=== PATIENT | female | born 1945 | race Caucasian/White ===

== ENCOUNTER 2020-09-05 09:18 | Outpatient (REF) | payer MEDICARE, SELFPAY ==
[2020-09-05 10:16] LABS: MANUAL DIFF FLAG NO
[2020-09-05 10:38] LABS: Basophils Absolute Auto 0.1 X10*3/uL (0.0-0.2); Basophils Percent Auto 0.7 % (0-2); Eosinophils Absolute Auto 0.2 X10*3/uL (0.0-0.4); Eosinophils Percent Auto 2.1 % (0-4); Hematocrit 35.9 % (37-47); Hemoglobin 11.8 g/dl (12.0-16.0); Imm Gran Abs Auto 0.01 X10*3/uL (0.00-0.03); Imm Gran Pct Auto 0.1 % (0.0-0.4); Lymphocytes Absolute Auto 2.2 X10*3/uL (1.2-4.9); Lymphocytes Percent Auto 29.7 % (20-40); Mean Corpuscular HGB Conc 32.9 g/dl (31.0-35.0); Mean Corpuscular Volume 91.3 fL (80-98); Mean Platelet Volume 10.5 fL (9.4-12.3); Monocytes Absolute Auto 0.6 X10*3/uL (0.1-1.2); Monocytes Percent Auto 7.7 % (2-11); Neutrophils Absolute Auto 4.5 X10*3/uL (2.0-8.3); Neutrophils Percent Auto 59.7 % (45-73); Platelet Count 305 X10*3/uL (160-400); Red Blood Count 3.93 X10*6/uL (4.20-5.50); Red Cell Distribution Width 14.4 % (11.0-16.0); White Blood Count 7.5 X10*3/uL (4.8-10.8)
[2020-09-05 10:55] LABS: Alanine Aminotransferase 18 U/L (0-31); Albumin Level 4.1 g/dL (3.5-5.0); Alkaline Phosphatase 106 U/L (39-117); Anion Gap 11 (12-20); Aspartate Amino Transferase 26 U/L (5-31); Bilirubin Total 0.3 mg/dL (0.0-1.0); Blood Urea Nitrogen 17 mg/dL (9-16); Carbon Dioxide 29 mmol/L (22-29); Chloride 105 mmol/L (96-108); Cholesterol 198 mg/dL; Estimated Glomerular Filt Rate > 60; Glucose Fasting 101 mg/dL (60-99); HDL Cholesterol 77 mg/dL; LDL Cholesterol Calculated 103 mg/dl; Sodium 141 mmol/L (135-145); Triglycerides 90 mg/dL
[2020-09-05 11:20] LABS: Ferritin 12 ng/mL (10-250)
[2020-09-05 11:23] LABS: Vitamin B12 1009 pg/mL (200-900)
== END 2020-09-05 09:19 | disposition home or self-care (01) ==
LOC: HO.LAB 09:18
PROVIDERS: PCP Internal Medicine; Visit Provider Internal Medicine
DX: Z00.00 Encounter for general adult medical examination without abnormal findings (principal); D50.8 Other iron deficiency anemias; I10 Essential (primary) hypertension; Z80.0 Family history of malignant neoplasm of digestive organs
CPT/HCPCS: 36415; 80053; 80061; 82607; 82728; 84443; 85025

== ENCOUNTER 2021-02-23 10:33 | Outpatient (REF) | payer MEDICARE, SELFPAY ==
[2021-02-23 11:25] LABS: MANUAL DIFF FLAG NO
[2021-02-23 11:37] LABS: Basophils Percent Auto 0.5 % (0-2); Eosinophils Absolute Auto 0.2 X10*3/uL (0.0-0.4); Eosinophils Percent Auto 1.8 % (0-4); Hematocrit 32.5 % (37-47); Hemoglobin 10.5 g/dl (12.0-16.0); Imm Gran Abs Auto 0.02 X10*3/uL (0.00-0.03); Imm Gran Pct Auto 0.2 % (0.0-0.4); Lymphocytes Absolute Auto 1.9 X10*3/uL (1.2-4.9); Lymphocytes Percent Auto 23.1 % (20-40); Mean Corpuscular HGB Conc 32.3 g/dl (31.0-35.0); Mean Corpuscular Hemoglobin 29.9 pg (27.0-33.0); Mean Corpuscular Volume 92.6 fL (80-98); Mean Platelet Volume 10.2 fL (9.4-12.3); Monocytes Absolute Auto 0.6 X10*3/uL (0.1-1.2); Monocytes Percent Auto 7.9 % (2-11); Neutrophils Absolute Auto 5.4 X10*3/uL (2.0-8.3); Neutrophils Percent Auto 66.5 % (45-73); Platelet Count 252 X10*3/uL (160-400); Red Blood Count 3.51 X10*6/uL (4.20-5.50); Red Cell Distribution Width 14.9 % (11.0-16.0); White Blood Count 8.1 X10*3/uL (4.8-10.8)
[2021-02-23 11:47] LABS: Alanine Aminotransferase 19 U/L (0-31); Albumin Level 3.7 g/dL (3.5-5.0); Alkaline Phosphatase 107 U/L (39-117); Anion Gap 11 (12-20); Aspartate Amino Transferase 25 U/L (5-31); Bilirubin Total 0.3 mg/dL (0.0-1.0); Blood Urea Nitrogen 22 mg/dL (9-16); Calcium 8.9 mg/dL (8.4-10.2); Carbon Dioxide 30 mmol/L (22-29); Chloride 107 mmol/L (96-108); Estimated Glomerular Filt Rate > 60; Glucose Fasting 111 mg/dL (60-99); Potassium 3.8 mmol/L (3.3-5.1); Sodium 144 mmol/L (135-145); Total Protein 6.2 g/dL (6.5-8.0)
[2021-02-23 12:09] LABS: Ferritin 30 ng/mL (10-250)
== END 2021-02-23 10:34 | disposition home or self-care (01) ==
LOC: HO.LAB 10:33
PROVIDERS: PCP Internal Medicine; Visit Provider Internal Medicine
DX: D50.8 Other iron deficiency anemias (principal); I10 Essential (primary) hypertension; R60.0 Localized edema
CPT/HCPCS: 36415; 80053; 82728; 85025

== ENCOUNTER 2021-06-23 04:40 | Emergency (ER) | payer MEDICARE, SELFPAY ==
--- NOTE | ~2021-06-23 | CT_ITS ---
CT head/brain wo con CLINICAL INFORMATION: Reason for Exam Left facial numbness, rule out stroke COMPARISON: No prior CT scan available for comparison. TECHNIQUE: Department standard protocol. This CT examination was performed using dose optimization techniques as appropriate, variously including the following: *Automated exposure control *Adjustment of mA and/or kV according to patient size (this includes techniques or standardized protocols for targeted exams where dose is matched to indication/reason for exam; i.e. extremities or head) *Use of iterative reconstruction technique DLP: 622 mGy-cm FINDINGS: CEREBRAL HEMISPHERES: There is no evidence of intra-axial or extra-axial mass, hemorrhage or acute infarct. BRAIN PARENCHYMA: Normal lopez-white matter differentiation. SUBDURAL SPACE: No bleed. BASAL GANGLIA AND PINEAL GLAND: Unremarkable VENTRICLES: Symmetric and normal in size. CEREBELLUM AND BRAINSTEM: No space-occupying mass, hemorrhage or acute infarct. CEREBELLOPONTINE ANGLES: No lesion found. ORBITS: No intraorbital mass. VESSELS: Unremarkable SKULL BASE: Unremarkable INCLUDED SINUSES AT SKULL BASE: Clear SKULL AND SKIN: No fracture or bone lesion found. CT/CT head/brain wo con IMPRESSION: No CT evidence of intracranial space-occupying mass, bleed or infarct. Normal CT scan does not rule out the possibility of hyperacute infarct in the first 12 hours. If patient symptoms persist may consider correlation with MRI, which is more sensitive for early acute infarct.
--- NOTE | ~2021-06-23 | XR_ITS ---
EXAMINATION: XR chest 1V CLINICAL INFORMATION: Chest pain COMPARISON: None TECHNIQUE: XR chest 1V Tubes and lines: None Lungs and pleura: Hyperinflated lung flattening of the right hemidiaphragm suggests underlying air trapping. No radiographic evidence of acute infiltrates or failure. Heart and mediastinum: Heart borderline enlarged.. Bones/soft tissue: Skeletal structures included are normal for patient's age. XR/XR chest 1V IMPRESSION: Air trapping. Heart borderline enlarged. No radiographic evidence of acute infiltrates or failure.
[2021-06-23 04:42] VITALS: BP 148/55; BP 180/112; PULSE 63; PULSE 84; RESP 15; TEMP 37; O2SAT 97; BMI 33.0
--- NOTE | 2021-06-23 06:42 | ECG_ITS ---
Test Reason : NEURO Blood Pressure : / mmHG Vent. Rate : 062 BPM Atrial Rate : 062 BPM P-R Int : 164 ms QRS Dur : 094 ms QT Int : 434 ms P-R-T Axes : 037 029 024 degrees QTc Int : 440 ms Normal sinus rhythm Normal ECG No previous ECGs available Referred By: Randall Romero Electronically Signed By:Paresh Rainey
--- NOTE | 2021-06-23 06:43 | ED.NEUROSD ---
HPI - Neuro Symptoms/Deficit General Chief Complaint: Neuro Symptoms/Deficit Stated Complaint: numbness after eating salad Time Seen by Provider: 06/23/21 06:31 Source: patient Mode of arrival: EMS Limitations: no limitations History of Present Illness HPI Narrative: 26-year-old female who presents emergency department for evaluation of left facial numbness and left arm pain. The patient states that she was eating a salad around 6:00 p.m. when she developed numbness on the left side of her face. She also states she had a tingling sensation in her tongue. The numbness was located beneath her left eye on the area the cheek and extended to her lips. Initially, the numbness did not cross midline but then she states both her lips became numb. She states that yesterday she did have intermittent left arm pain which she describes as a tightness, this was not associated with exertion, she had no associated chest pain lightheadedness dizziness, nausea, diaphoresis or shortness of breath. The patient states that the numbness persisted therefore she came to the emergency department for evaluation. At the time of evaluation she states the numbness in her cheek area has improved but is still present, the numbness on both her upper and lower lips this persisted. Related Data Allergies Allergy/AdvReac Type Severity Reaction Status Date / Time No Known Allergies Allergy Verified 06/23/21 04:56 Review of Systems Review of Systems: Yes all other systems are reviewed and are negative [facility] Past Medical History [facility] Narrative: Past medical history: Hypertension, anemia. Past surgical history: None. Social history: She denies tobacco, alcohol and drug use. Medical History (Updated 06/23/21 @ 10:51 by Randall Romero MD) Anemia Hypertension Social History Social History Alcohol intake: never Patient Tobacco Use Status: Never used Tobacco Use of substances other than those prescribed or required for medical reasons: No Advance Directives: No Physical Exam Vital Signs: Vital Signs: Last Vital Signs Temp 97.8 F 06/23/21 07:12 Pulse 61 06/23/21 07:12 Resp 16 06/23/21 07:12 BP 149/55 H 06/23/21 07:12 Pulse Ox 97 06/23/21 07:12 Body Mass Index 33.0 Const: General: cooperative and no acute distress Orientation/consciousness: oriented to person and oriented to place Limitations: no limitations HENMT: Head: Yes normal to inspection, Yes normocephalic and Yes atraumatic Ears: external ears normal General nose exam: Normal external nose present Face and sinus: Yes normal facial exam Mouth: Normal oral and palatal mucosa present Throat: Yes posterior oropharynx normal Eyes: General: appearance normal, both eyes and all related structures Pupils: Equal, round and reactive pupils present Neck: Neck: Yes normal visual inspection, Yes no lymphadenopathy, Yes trachea midline and Yes supple Chest: Chest palpation & inspection: normal inspection of the chest and normal palpation of entire chest wall Resp: Effort & Inspection: normal respiratory effort and able to speak in complete sentences Auscultation: clear to auscultation bilaterally Cardio: Rate: regular rate Rhythm: regular rhythm Heart sounds: S1 normal heart sound present, S2 normal heart sound present and no murmurs GI: Inspection: Yes normal to inspection Palpation (GI): Soft to palpation, nontender and no guarding Auscultation: normal bowel sounds : General: Yes no CVA tenderness Back/Spine/Pelvis: Back: no CVA tenderness Skin: General skin exam: no rashes or lesions noted Neuro: Other: Her the patient does have diminished light touch over her left zygomatic region and over her lips bilaterally. General: oriented to person and oriented to place Cranial nerves: Yes CN's II-XII intact bilaterally and Yes Equal, round and reactive pupils present Cognition (Neuro): normal cognition Motor exam (neuro): 5/5 motor strength present throughout Extrem: General: Yes normal to inspection Psych: Appearance: grossly normal Speech and movement: Normal speech and movement present Affect: normal affect Attitude: cooperative Thought process: Normal thought process present Thought content: Normal thought content present Course Course Course Narrative: 76-year-old female who presents emergency department for evaluation of left-sided facial numbness is in left arm pain with symptoms beginning yesterday. The a numbness of her face had a sudden onset around 6:00 p.m. while she was eating. Her physical examination reveals no facial weakness and she has a nonfocal neurologic examination. She does have some diminished light touch the left side of her. Differential includes but is not limited to stroke, Manrique's palsy, cardiac disease. I ordered a cardiac workup on the patient and a CT scan of the head to rule out possible stroke or bleed. 1045: The patient's laboratory evaluation revealed mild anemia with an H&H of 11 and 34.8 otherwise was unremarkable. Patient's high sensitivity troponin was detectable but not elevated at 4.8. Patient's EKG was unremarkable. Chest x-ray was normal. CT scan of the head was unremarkable. This time I do not have a clear etiology for the patient's facial numbness. I do not think that she has had a stroke, it is possible she may have early Manrique's palsy and I did discuss this with her. Patient was advised to take 1 baby aspirin daily. I did discuss signs and symptoms of Manrique's palsy with the patient. The patient was given verbal and printed instructions prior to discharge. The patient was advised to follow-up with her PCP in 2 days and to return to the emergency department if her symptoms get worse or if she develops any new symptoms that are concerning to her. MDM - Neuro Symptoms/Deficit Lab Data Result diagrams: 06/23/21 07:10 06/23/21 07:10 Labs: Lab Results 06/23/21 06/23/21 06/23/21 Range/Units 07:10 07:10 07:10 WBC 7.4 (4.8-10.8) X10*3/uL RBC 3.87 L (4.20-5.50) X10*6/uL Hgb 11.5 L (12.0-16.0) g/dl Hct 34.8 L (37-47) % MCV 89.9 (80-98) fL MCH 29.7 (27.0-33.0) pg MCHC 33.0 (31.0-35.0) g/dl RDW 15.1 (11.0-16.0) % Plt Count TNP MPV Not Reportable Immature Gran % (Auto) 0.1 (0.0-0.4) % Neut % (Auto) 62.7 (45-73) % Lymph % (Auto) 27.2 (20-40) % [place] % (Auto) 7.5 (2-11) % Eos % (Auto) 2.0 (0-4) % Baso % (Auto) 0.5 (0-2) % Lymph # (Auto) 2.0 (1.2-4.9) X10*3/uL [place] # (Auto) 0.6 (0.1-1.2) X10*3/uL Eos # (Auto) 0.2 (0.0-0.4) X10*3/uL Baso # (Auto) 0.0 (0.0-0.2) X10*3/uL Abs Immat Gran (auto) 0.01 (0.00-0.03) X10*3/uL Absolute Neuts (auto) 4.6 (2.0-8.3) X10*3/uL Absolute Nucleated RBC 0.000 (0.0-0.012) X10*3/uL Nucleated RBC % (auto) 0.0 (0.0-0.2) /100WBC Smear Tech's Comments VERIFIED Sodium 141 (135-145) mmol/L Potassium 4.7 D (3.3-5.1) mmol/L Chloride 107 (96-108) mmol/L Carbon Dioxide 21 L (22-29) mmol/L Anion Gap 18 (12-20) BUN 17 H (9-16) mg/dL Creatinine 0.76 (0.5-1.4) mg/dL Estim Creat Clear Calc 57.5 Estimated GFR > 60 Random Glucose 105 (60-115) mg/dL Calcium 9.0 (8.4-10.2) mg/dL Total Bilirubin 0.4 (0.0-1.0) mg/dL AST 55 H (5-31) U/L ALT 31 (0-31) U/L Alkaline Phosphatase 96 (39-117) U/L Troponin I High Sens 4.8 (<3.5-17.0) ng/L Total Protein 6.8 (6.5-8.0) g/dL Albumin 3.7 (3.5-5.0) g/dL ECG Data Interpretation: 0700: Normal sinus rhythm rate of 62, normal NC interval, QRS duration and QTC interval, no ST segment elevation, no ST segment depression, no PACs, no PVCs, no T-wave abnormalities. This is a normal EKG. Discharge Plan Discharge Clinical Impression: Left facial numbness Patient Disposition: Home, Self-Care Instructions: Paresthesia (ED) Additional Instructions: At this time I do not have a clear cause for your left facial numbness. I do not think that you had a stroke. It is possible that this may be early Manrique's palsy however you do not have any weakness of your face at this time so it is difficult to make this diagnosis. Your laboratory evaluation was normal. Your EKG was unremarkable. Your chest x-ray was normal. The CT scan of your brain revealed no bleeding or stroke. Take 1 baby aspirin a day for the next 2 weeks. Follow-up with your doctor in 2 days. Please return to the emergency department if your symptoms get worse or if you develop any symptoms that are concerning to you.
[2021-06-23 07:12] VITALS: BP 149/55; PULSE 61; RESP 16; TEMP 36.6; O2SAT 97
[2021-06-23 07:18] LABS: Imm Gran Abs Auto 0.01 X10*3/uL (0.00-0.03); Imm Gran Pct Auto 0.1 % (0.0-0.4); Lymphocytes Percent Auto 27.2 % (20-40); MANUAL DIFF FLAG SCAN; Mean Corpuscular Volume 89.9 fL (80-98); Monocytes Absolute Auto 0.6 X10*3/uL (0.1-1.2); PLT CLUMP 1; Red Cell Distribution Width 15.1 % (11.0-16.0); SCAN SMEAR FLAG 1
[2021-06-23 07:20] LABS: Basophils Percent Auto 0.5 % (0-2); Eosinophils Absolute Auto 0.2 X10*3/uL (0.0-0.4); Hematocrit 34.8 % (37-47); Hemoglobin 11.5 g/dl (12.0-16.0); Mean Corpuscular Hemoglobin 29.7 pg (27.0-33.0); Monocytes Percent Auto 7.5 % (2-11); Neutrophils Absolute Auto 4.6 X10*3/uL (2.0-8.3); Neutrophils Percent Auto 62.7 % (45-73); Red Blood Count 3.87 X10*6/uL (4.20-5.50); White Blood Count 7.4 X10*3/uL (4.8-10.8)
[2021-06-23 07:52] LABS: Troponin-I High Sensitivity 4.8 ng/L (<3.5-17.0)
[2021-06-23 08:10] LABS: Alanine Aminotransferase 31 U/L (0-31); Albumin Level 3.7 g/dL (3.5-5.0); Alkaline Phosphatase 96 U/L (39-117); Anion Gap 18 (12-20); Aspartate Amino Transferase 55 U/L (5-31); Bilirubin Total 0.4 mg/dL (0.0-1.0); Blood Urea Nitrogen 17 mg/dL (9-16); Carbon Dioxide 21 mmol/L (22-29); Chloride 107 mmol/L (96-108); Creatinine Clr Calc Pharmacy 57.5; Estimated Glomerular Filt Rate > 60; Glucose Random 105 mg/dL (60-115); Potassium 4.7 mmol/L (3.3-5.1); SLIDE REVIEW VERIFIED; Sodium 141 mmol/L (135-145); Total Protein 6.8 g/dL (6.5-8.0)
== END 2021-06-23 11:09 | disposition home or self-care (01) ==
PROVIDERS: Emergency Provider Emergency Medicine Emergency Medical Services; PCP Internal Medicine
DX: R20.0 Anesthesia of skin (principal); I10 Essential (primary) hypertension
CPT/HCPCS: 36415; 70450; 71045; 80053; 84484; 85025; 93005; 99284

== ENCOUNTER 2021-07-07 12:51 | Emergency (ER) | payer MEDICARE, SELFPAY ==
[2021-07-07 12:57] VITALS: BP 135/74; PULSE 74; RESP 16; TEMP 36.6; O2SAT 98; BMI 33.2
--- NOTE | 2021-07-07 13:54 | ED.GENADULT ---
HPI - General Adult General Chief complaint: General Medical Stated complaint: facial pain numbness Time Seen by Provider: 07/07/21 13:54 Source: patient Mode of arrival: ambulatory Limitations: no limitations History of Present Illness HPI narrative: Patient complaining of shooting electric shock-like pain on the left side of the face since 06/23 was seen here on that day CT scan of the head was negative lab workup was negative patient discharged with diagnosis of possible early Manrique's palsy patient does have paroxysmal pain lasting from fraction of a second to a minute ,severe intensity feel like shooting stabbing sharp in quality get worse when she chew/while talking no other weakness no numbness of the face speech and taste is normal no family history of multiple sclerosis no rash no fever or chills Related Data Previous Rx's Medication Instructions Recorded carbamazepine 200 mg tablet 200 mg PO BID #60 tab 07/07/21 (Tegretol) Allergies Allergy/AdvReac Type Severity Reaction Status Date / Time No Known Allergies Allergy Verified 06/23/21 04:56 Review of Systems Review of Systems: Yes all other systems are reviewed and are negative [facility] Past Medical History Medical History (Updated 07/07/21 @ 14:14 by Christo Bustamante MD) Anemia Hypertension Social History Social History Alcohol intake: never Patient Tobacco Use Status: Never used Tobacco Advance Directives: No Advance Directives Information Provided: Yes Physical Exam Vital Signs: Vital Signs: Last Vital Signs Temp 98 F 07/07/21 12:57 Pulse 74 07/07/21 12:57 Resp 16 07/07/21 12:57 BP 135/74 07/07/21 12:57 Pulse Ox 98 07/07/21 12:57 Body Mass Index 33.2 Appearance: Alert. Oriented X3. No acute distress. Eyes: PERRLA, No Nystagmus ENT: Pharynx normal. Oral Mucosa moist Neck: Normal inspection. Neck supple. CVS: Normal heart rate and rhythm. Pulses normal. Respiratory: No respiratory distress. Equal air entry bilateral, no wheezing/rales/rhonchi Abdomen: Soft and nontender. Bowel sounds are present, no mass palpable, no CVA tenderness Skin: Skin warm and dry. Normal skin color. Normal skin turgor. Extremities: No lower extremity edema. No calf tenderness Neuro: Oriented X 3. No motor deficit. No sensory deficit.No cerebellar signs , cranial nerves II-XII intact trigger zone in front of the left tragus eliciting shooting pain when tapped no facial drooping speech is normal Medical Decision Making MDM Narrative Medical decision making narrative: Patient with classical symptoms of L trigeminal neuralgia, previous workup including CT scan of the head and labs were stable will discharge patient home on Tegretol advised to follow with neurologist if not better Discharge Plan Discharge Clinical Impression: Trigeminal neuralgia Patient Disposition: Home, Self-Care Instructions: Trigeminal Neuralgia (ED) Additional Instructions: Care as advised Take carbamazepine twice daily Follow-up with neurologist if not better Prescriptions: New carbamazepine [Tegretol] 200 mg tablet 200 mg PO BID Qty: 60 RF: 0 Referrals: Leonel Myers MD [Physician] - 1 week
[2021-07-07] MEDS: carBAMazepine 200 MG TABLET PO (14:29)
== END 2021-07-07 14:34 | disposition home or self-care (01) ==
PROVIDERS: Emergency Provider Internal Medicine; PCP Internal Medicine
DX: G50.0 Trigeminal neuralgia (principal); I10 Essential (primary) hypertension
CPT/HCPCS: 99283

== ENCOUNTER 2021-09-24 09:10 | Outpatient (REF) | payer MEDICARE, SELFPAY ==
--- NOTE | ~2021-09-24 | MR_ITS ---
EXAMINATION: MR BRAIN WITHOUT CONTRAST CLINICAL INFORMATION: Trigeminal neuralgia. Left facial paresthesia/pain. COMPARISON: CT head from 06/23/2021. TECHNIQUE: Multiplanar, multisequence MRI of the brain was obtained using a skull base protocol without contrast. FINDINGS: No focal restricted diffusion is demonstrated to suggest acute or subacute cerebral ischemia. No evidence of acute or chronic hemorrhagic products on heme-sensitive imaging. Scattered periventricular, deep white matter, and brainstem T2 FLAIR hyperintensities consistent with mild to moderate underlying microangiopathy. The ventricles are normal in morphology and size. No abnormal mass effect. No midline shift. Expansion of the sella turcica with flattening of the pituitary gland. Normal positioning of the cerebellar tonsils. No mass of the cerebellopontine angles. No demonstrated abnormalities of the cranial nerve V, VII, and VIII nerve roots. No edema or vascular loops demonstrated near the nerve root entry sites. Normal appearance of the internal auditory canals. Normal appearance of the labyrinthine structures without loss of T2 signal. Normal arterial and venous vascular flow voids are present. Normal, homogeneous marrow signal. Moderate mucosal thickening of the paranasal sinuses. Rightward nasal septal deviation. No signal abnormalities within the mastoids. MR/MR head/brain wo con IMPRESSION: 1. No acute intracranial abnormalities. 2. Mild to moderate underlying microangiopathy. 3. Moderate sinonasal mucosal disease. 4. No additional noncontrast MRI abnormalities to explain the patient's symptoms.
[2021-09-24 10:27] LABS: MANUAL DIFF FLAG NO
[2021-09-24 10:57] LABS: Basophils Absolute Auto 0.1 X10*3/uL (0.0-0.2); Basophils Percent Auto 0.8 % (0-2); Eosinophils Absolute Auto 0.2 X10*3/uL (0.0-0.4); Eosinophils Percent Auto 2.6 % (0-4); Hematocrit 35.7 % (37.0-47.0); Hemoglobin 11.5 g/dl (12.0-16.0); Imm Gran Abs Auto 0.01 X10*3/uL (0.00-0.03); Imm Gran Pct Auto 0.2 % (0.0-0.4); Lymphocytes Absolute Auto 1.9 X10*3/uL (1.2-4.9); Lymphocytes Percent Auto 28.3 % (20-40); Mean Corpuscular HGB Conc 32.2 g/dl (31.0-35.0); Mean Corpuscular Hemoglobin 30.7 pg (27.0-33.0); Mean Corpuscular Volume 95.2 fL (80.0-98.0); Mean Platelet Volume 10.3 fL (9.4-12.3); Monocytes Absolute Auto 0.4 X10*3/uL (0.1-1.2); Monocytes Percent Auto 6.7 % (2-11); Neutrophils Percent Auto 61.4 % (45-73); Platelet Count 260 X10*3/uL (160-400); Red Blood Count 3.75 X10*6/uL (4.20-5.50); Red Cell Distribution Width 14.1 % (11.0-16.0); White Blood Count 6.5 X10*3/uL (4.8-10.8)
[2021-09-24 11:03] LABS: Estimated Average Glucose 114 mg/dL; Hemoglobin A1c % 5.6 %
[2021-09-24 11:28] LABS: Alanine Aminotransferase 25 U/L (0-31); Albumin Level 3.9 g/dL (3.5-5.0); Alkaline Phosphatase 104 U/L (39-117); Anion Gap 12 (12-20); Aspartate Amino Transferase 32 U/L (5-31); Bilirubin Total 0.6 mg/dL (0.0-1.0); Blood Urea Nitrogen 22 mg/dL (9-16); Calcium 9.3 mg/dL (8.4-10.2); Carbon Dioxide 29 mmol/L (22-29); Chloride 107 mmol/L (96-108); Cholesterol 217 mg/dL; Estimated Glomerular Filt Rate > 60; Glucose Random 110 mg/dL (60-115); HDL Cholesterol 69 mg/dL; LDL Cholesterol Calculated 130 mg/dl; Potassium 4.5 mmol/L (3.3-5.1); Sodium 143 mmol/L (135-145); Total Protein 6.7 g/dL (6.5-8.0); Triglycerides 92 mg/dL
[2021-09-24 11:56] LABS: Ferritin 45 ng/mL (10-250)
== END 2021-09-24 09:11 | disposition home or self-care (01) ==
LOC: HO.MRI 09:10
PROVIDERS: Absent Provider Internal Medicine; PCP Internal Medicine; Visit Provider Psychiatry & Neurology Neurology
DX: G50.0 Trigeminal neuralgia (principal); D64.89 Other specified anemias; I10 Essential (primary) hypertension; R73.01 Impaired fasting glucose
CPT/HCPCS: 36415; 70551; 80053; 80061; 82728; 83036; 85025

== ENCOUNTER 2021-12-21 09:14 | Outpatient (REF) | payer MEDICARE, SELFPAY ==
[2021-12-21 10:28] LABS: Alanine Aminotransferase 27 U/L (0-31); Alkaline Phosphatase 94 U/L (39-117); Anion Gap 11 (12-20); Aspartate Amino Transferase 35 U/L (5-31); Bilirubin Total 0.6 mg/dL (0.0-1.0); Blood Urea Nitrogen 14 mg/dL (9-16); Calcium 9.6 mg/dL (8.4-10.2); Carbon Dioxide 30 mmol/L (22-29); Chloride 105 mmol/L (96-108); Cholesterol 162 mg/dL; Estimated Glomerular Filt Rate > 60; Glucose Random 105 mg/dL (60-115); HDL Cholesterol 66 mg/dL; LDL Cholesterol Calculated 79 mg/dl; Potassium 4.2 mmol/L (3.3-5.1); Sodium 142 mmol/L (135-145); Total Protein 6.7 g/dL (6.5-8.0); Triglycerides 88 mg/dL
== END 2021-12-21 09:15 | disposition home or self-care (01) ==
LOC: HO.LAB 09:14
PROVIDERS: PCP Internal Medicine; Visit Provider Internal Medicine
DX: Z00.00 Encounter for general adult medical examination without abnormal findings (principal); I10 Essential (primary) hypertension; E78.00 Pure hypercholesterolemia, unspecified
CPT/HCPCS: 36415; 80053; 80061

== ENCOUNTER 2022-04-23 09:50 | Outpatient (REF) | payer MEDICARE, SELFPAY ==
[2022-04-23 10:06] LABS: MANUAL DIFF FLAG NO
[2022-04-23 11:47] LABS: Basophils Absolute Auto 0.1 X10*3/uL (0.0-0.2); Basophils Percent Auto 0.9 % (0-2); Eosinophils Absolute Auto 0.2 X10*3/uL (0.0-0.4); Eosinophils Percent Auto 2.3 % (0-4); Imm Gran Abs Auto 0.01 X10*3/uL (0.00-0.03); Imm Gran Pct Auto 0.1 % (0.0-0.4); Lymphocytes Absolute Auto 2.3 X10*3/uL (1.2-4.9); Lymphocytes Percent Auto 33.6 % (20-40); Mean Corpuscular HGB Conc 32.4 g/dl (31.0-35.0); Mean Corpuscular Hemoglobin 29.8 pg (27.0-33.0); Mean Corpuscular Volume 92.1 fL (80.0-98.0); Mean Platelet Volume 10.7 fL (9.4-12.3); Monocytes Absolute Auto 0.6 X10*3/uL (0.1-1.2); Monocytes Percent Auto 8.2 % (2-11); Neutrophils Absolute Auto 3.7 x10*3/uL (2.0-8.3); Neutrophils Percent Auto 54.9 % (45-73); Platelet Count 279 X10*3/uL (160-400); Red Blood Count 3.69 X10*6/uL (4.20-5.50); Red Cell Distribution Width 15.1 % (11.0-16.0); White Blood Count 6.8 X10*3/uL (4.8-10.8)
[2022-04-23 12:12] LABS: Cholesterol 213 mg/dL; HDL Cholesterol 77 mg/dL; LDL Cholesterol Calculated 124 mg/dl; Triglycerides 62 mg/dL
[2022-04-23 12:23] LABS: Ferritin 17 ng/mL (10-250)
== END 2022-04-23 09:51 | disposition home or self-care (01) ==
LOC: HO.LAB 09:50
PROVIDERS: PCP Internal Medicine; Visit Provider Internal Medicine
DX: D50.8 Other iron deficiency anemias (principal); E78.00 Pure hypercholesterolemia, unspecified; I10 Essential (primary) hypertension
CPT/HCPCS: 36415; 80061; 82728; 85025

== ENCOUNTER 2022-07-17 10:16 | Outpatient (REF) | payer MEDICARE, SELFPAY ==
[2022-07-17 10:30] LABS: MANUAL DIFF FLAG NO
[2022-07-17 11:20] LABS: Basophils Percent Auto 0.4 % (0-2); Eosinophils Absolute Auto 0.3 X10*3/uL (0.0-0.4); Eosinophils Percent Auto 3.4 % (0-4); Hematocrit 31.7 % (37.0-47.0); Hemoglobin 10.3 g/dl (12.0-16.0); Imm Gran Abs Auto 0.03 X10*3/uL (0.00-0.03); Imm Gran Pct Auto 0.4 % (0.0-0.4); Lymphocytes Absolute Auto 2.4 X10*3/uL (1.2-4.9); Lymphocytes Percent Auto 31.6 % (20-40); Mean Corpuscular HGB Conc 32.5 g/dl (31.0-35.0); Mean Corpuscular Hemoglobin 29.4 pg (27.0-33.0); Mean Corpuscular Volume 90.6 fL (80.0-98.0); Mean Platelet Volume 10.3 fL (9.4-12.3); Monocytes Absolute Auto 0.5 X10*3/uL (0.1-1.2); Monocytes Percent Auto 6.9 % (2-11); Neutrophils Absolute Auto 4.4 x10*3/uL (2.0-8.3); Neutrophils Percent Auto 57.3 % (45-73); Platelet Count 258 X10*3/uL (160-400); White Blood Count 7.7 X10*3/uL (4.8-10.8)
[2022-07-17 11:28] LABS: Estimated Average Glucose 120 mg/dL; Hemoglobin A1c % 5.8 %
[2022-07-17 12:05] LABS: Alanine Aminotransferase 21 U/L (0-31); Albumin Level 3.7 g/dL (3.5-5.0); Alkaline Phosphatase 90 U/L (39-117); Anion Gap 13 (12-20); Aspartate Amino Transferase 29 U/L (5-31); Bilirubin Total 0.4 mg/dL (0.0-1.0); Blood Urea Nitrogen 18 mg/dL (9-16); Calcium 8.9 mg/dL (8.4-10.2); Carbon Dioxide 26 mmol/L (22-29); Chloride 108 mmol/L (96-108); Cholesterol 148 mg/dL; Estimated Glomerular Filt Rate > 60; Glucose Fasting 95 mg/dL (60-99); HDL Cholesterol 74 mg/dL; LDL Cholesterol Calculated 61 mg/dl; Potassium 4.2 mmol/L (3.3-5.1); Sodium 143 mmol/L (135-145); Total Protein 6.3 g/dL (6.5-8.0); Triglycerides 68 mg/dL
[2022-07-17 12:29] LABS: Ferritin 20 ng/mL (10-250)
== END 2022-07-17 10:17 | disposition home or self-care (01) ==
LOC: HO.LAB 10:16
PROVIDERS: PCP Internal Medicine; Visit Provider Internal Medicine
DX: D50.8 Other iron deficiency anemias (principal); E78.00 Pure hypercholesterolemia, unspecified; I10 Essential (primary) hypertension; R73.01 Impaired fasting glucose
CPT/HCPCS: 36415; 80053; 80061; 82728; 83036; 85025

== ENCOUNTER 2022-11-21 10:33 | Outpatient (REF) | payer MEDICARE, SELFPAY ==
[2022-11-21 11:09] LABS: MANUAL DIFF FLAG NO
[2022-11-21 11:42] LABS: Basophils Absolute Auto 0.1 X10*3/uL (0.0-0.2); Basophils Percent Auto 0.8 % (0-2); Eosinophils Absolute Auto 0.2 X10*3/uL (0.0-0.4); Eosinophils Percent Auto 2.8 % (0-4); Hematocrit 34.8 % (37.0-47.0); Hemoglobin 11.3 g/dl (12.0-16.0); Imm Gran Abs Auto 0.02 X10*3/uL (0.00-0.03); Imm Gran Pct Auto 0.3 % (0.0-0.4); Lymphocytes Absolute Auto 2.3 X10*3/uL (1.2-4.9); Lymphocytes Percent Auto 30.6 % (20-40); Mean Corpuscular HGB Conc 32.5 g/dl (31.0-35.0); Mean Corpuscular Hemoglobin 29.4 pg (27.0-33.0); Mean Corpuscular Volume 90.6 fL (80.0-98.0); Mean Platelet Volume 10.1 fL (9.4-12.3); Monocytes Absolute Auto 0.5 X10*3/uL (0.1-1.2); Monocytes Percent Auto 7.2 % (2-11); Neutrophils Absolute Auto 4.4 x10*3/uL (2.0-8.3); Neutrophils Percent Auto 58.3 % (45-73); Platelet Count 268 X10*3/uL (160-400); Red Blood Count 3.84 X10*6/uL (4.20-5.50); Red Cell Distribution Width 14.7 % (11.0-16.0); White Blood Count 7.5 X10*3/uL (4.8-10.8)
[2022-11-21 12:42] LABS: Ferritin 24 ng/mL (10-250)
== END 2022-11-21 10:34 | disposition home or self-care (01) ==
LOC: HO.LAB 10:33
PROVIDERS: PCP Internal Medicine; Visit Provider Internal Medicine
DX: D50.8 Other iron deficiency anemias (principal); E78.00 Pure hypercholesterolemia, unspecified; I10 Essential (primary) hypertension
CPT/HCPCS: 36415; 82728; 85025

== ENCOUNTER 2022-12-18 07:21 | Emergency (ER) | payer BC, SELFPAY ==
--- NOTE | 2022-12-18 | ECG_ITS ---
Test Reason : CHEST PAIN Blood Pressure : / mmHG Vent. Rate : 072 BPM Atrial Rate : 072 BPM P-R Int : 156 ms QRS Dur : 088 ms QT Int : 422 ms P-R-T Axes : 040 025 022 degrees QTc Int : 462 ms Normal sinus rhythm Normal ECG When compared with ECG of 23-JUN-2021 07:00, No significant change was found Referred By: Generic ED Physician Electronically Signed By:Paresh Rainey
--- NOTE | ~2022-12-18 | XR_ITS ---
EXAMINATION: XR CHEST CLINICAL INFORMATION: Right-sided chest pain COMPARISON: 06/23/2021 TECHNIQUE: 2 views of the chest were obtained. FINDINGS: There is mild cardiac enlargement. No evidence of CHF. Again seen is a moderate-sized hiatal hernia. No infiltrates, effusions or lung masses. XR/XR chest 2V IMPRESSION: Cardiomegaly and hiatal hernia. No acute intrathoracic disease.
[2022-12-18 07:24] VITALS: BP 197/78; PULSE 73; RESP 18; TEMP 36.6; O2SAT 97; BMI 30.8
--- NOTE | 2022-12-18 07:31 | PC.NURSE ---
77 y/o F pw intermittent, R sided chest pain since last night. pt states that nothing makes it worse or better. pt is aox3, VSS, ambulatory. awaiting recs
--- NOTE | 2022-12-18 07:48 | PC.NURSE ---
labs drawn and sent
[2022-12-18 07:50] LABS: MANUAL DIFF FLAG NO
[2022-12-18 07:53] LABS: Basophils Absolute Auto 0.1 X10*3/uL (0.0-0.2); Basophils Percent Auto 0.6 % (0-2); Eosinophils Absolute Auto 0.3 X10*3/uL (0.0-0.4); Eosinophils Percent Auto 3.6 % (0-4); Hematocrit 33.9 % (37.0-47.0); Hemoglobin 11.2 g/dl (12.0-16.0); Imm Gran Abs Auto 0.02 X10*3/uL (0.00-0.03); Imm Gran Pct Auto 0.2 % (0.0-0.4); Lymphocytes Absolute Auto 2.8 X10*3/uL (1.2-4.9); Lymphocytes Percent Auto 32.7 % (20-40); Mean Corpuscular Hemoglobin 29.9 pg (27.0-33.0); Mean Corpuscular Volume 90.4 fL (80.0-98.0); Mean Platelet Volume 9.7 fL (9.4-12.3); Monocytes Absolute Auto 0.6 X10*3/uL (0.1-1.2); Monocytes Percent Auto 7.2 % (2-11); Neutrophils Absolute Auto 4.8 x10*3/uL (2.0-8.3); Neutrophils Percent Auto 55.7 % (45-73); Platelet Count 279 X10*3/uL (160-400); Red Blood Count 3.75 X10*6/uL (4.20-5.50); Red Cell Distribution Width 14.9 % (11.0-16.0); White Blood Count 8.6 X10*3/uL (4.8-10.8)
--- NOTE | 2022-12-18 08:13 | ED_ITS ---
HPI - Chest Pain General Chief Complaint: Chest Pain Stated Complaint: R side chest pain/R leg numbness Time Seen by Provider: 12/18/22 08:01 Source: patient Mode of arrival: ambulatory History of Present Illness HPI narrative: 77-year-old female who is currently completely asymptomatic states that for 2 days she has been having upper right anterior chest discomfort, nonradiating, not associated with fever, chills, cough, shortness of breath, respiration, and denies any traumatic injury or recent travel. Patient states that she took an aspirin this morning and her symptoms completely went away. Patient also reports mild numbness in her right toes that has been going on for several days without reports of any other numbness/tingling within the right lower extremity or right upper extremity. Related Data Previous Rx's Medication Instructions Recorded carbamazepine 200 mg tablet 200 mg PO BID #60 tabs 07/07/21 (Tegretol) Allergies Allergy/AdvReac Type Severity Reaction Status Date / Time No Known Allergies Allergy Verified 06/23/21 04:56 Review of Systems Review of Systems: Pertinent positives and negatives as stated in HPI PMFSH Past Medical History Source: nursing notes reviewed Medical History Anemia Hypertension Social History Social History Alcohol intake: never Patient Tobacco Use Status: Never used Tobacco Smoked in Last 30 Days: No Use of substances other than those prescribed or required for medical reasons: No Advance Directives: No Advance Directives Information Provided: Yes Physical Exam Vital Signs: Vital Signs: Last Vital Signs Temp 97.8 F 12/18/22 07:24 Pulse 73 12/18/22 07:24 Resp 18 12/18/22 07:24 BP 197/78 H 12/18/22 07:24 Pulse Ox 97 12/18/22 07:24 O2 Del Method 12/18/22 07:24 BMI result Body Mass Index 30.8 VITAL SIGNS: Reviewed. GENERAL: Well developed, well nourished, in no acute distress. HEAD: Normocephalic/atraumatic EYES: PERRLA, EOMI EARS: Ext canals without abnormality NOSE: Nares patent bilateral OROPHARYNX: no oral lesions noted, posterior pharynx clear NECK: Supple, no adenopathy LUNGS: There is no tachypnea, good inspiratory effort, no obvious deformity on the chest wall, no wheeze/rhonchi/rales and at this time no tenderness on palpation SpO2<97> CARDIOVASCULAR: Regular rate and rhythm without noted murmurs ABDOMEN: Soft, non-tender, non-distended with bowel sounds. MUSCULOSKELETAL: No tenderness, deformities, or effusions noted on gross inspection. EXTREMITIES: No cyanosis, clubbing or edema; RIGHT LOWER EXTREMITY: There is full range of motion at the hip/knee/ankle. SKIN: Inspection of the skin reveals no rashes NEUROLOGIC: Alert and oriented x 4. Strength and sensation to light touch were grossly intact x 4, no facial asymmetry, no pronator drift, cranial nerves 2-12 are grossly intact, DTRs are intact. Medical Decision Making Medical Decision Making MDM Narrative: 77-year-old female without focal deficits and suspect that patient is experiencing costochondritis but will rule out cardiopulmonary etiology. Lab/viral testing/EKG/chest x-ray. There are no focal deficits, have no clinical suspicion for PE. Suspect that tingling in the toes is neuropathic in the etiology. I have reviewed all investigations and my interpretation is that this is musculoskeletal in nature as there is no evidence of cardiopulmonary etiology, no infectious etiology and otherwise lab work is chronically stable and patient is currently asymptomatic. She was counseled on the use of analgesics [id number] and follow-up with her primary care provider. Differential Diagnosis Differential Diagnoses: The differential diagnosis associated with the presentation includes Please see the discussion above Lab Data MDM Lab Attestation statement: I reviewed the patient's lab results. Please see the discussion above 12/18/22 07:44 12/18/22 07:44 Labs: Lab Results 12/18/22 12/18/22 12/18/22 Range/Units 07:44 07:44 07:44 WBC 8.6 (4.8-10.8) X10*3/uL RBC 3.75 L (4.20-5.50) X10*6/uL Hgb 11.2 L (12.0-16.0) g/dl Hct 33.9 L (37.0-47.0) % MCV 90.4 (80.0-98.0) fL MCH 29.9 (27.0-33.0) pg MCHC 33.0 (31.0-35.0) g/dl RDW 14.9 (11.0-16.0) % Plt Count 279 (160-400) X10*3/uL MPV 9.7 (9.4-12.3) fL Immature Gran % (Auto) 0.2 (0.0-0.4) % Neut % (Auto) 55.7 (45-73) % Lymph % (Auto) 32.7 (20-40) % [place] % (Auto) 7.2 (2-11) % Eos % (Auto) 3.6 (0-4) % Baso % (Auto) 0.6 (0-2) % Lymph # (Auto) 2.8 (1.2-4.9) X10*3/uL [place] # (Auto) 0.6 (0.1-1.2) X10*3/uL Eos # (Auto) 0.3 (0.0-0.4) X10*3/uL Baso # (Auto) 0.1 (0.0-0.2) X10*3/uL Abs Immat Gran (auto) 0.02 (0.00-0.03) X10*3/uL Absolute Neuts (auto) 4.8 (2.0-8.3) x10*3/uL Absolute Nucleated RBC 0.000 (0.0-0.012) X10*3/uL Nucleated RBC % (auto) 0.0 (0.0-0.2) /100WBC Sodium 143 (135-145) mmol/L Potassium 3.8 (3.3-5.1) mmol/L Chloride 106 (96-108) mmol/L Carbon Dioxide 26 (22-29) mmol/L Anion Gap 15 (12-20) BUN 18 H (9-16) mg/dL Creatinine 0.82 (0.5-1.4) mg/dL Estim Creat Clear Calc 57.1 Estimated GFR > 60 Fasting Glucose 113 H (60-99) mg/dL Calcium 9.2 (8.4-10.2) mg/dL Total Bilirubin 0.6 (0.0-1.0) mg/dL AST 32 H (5-31) U/L ALT 22 (0-31) U/L Alkaline Phosphatase 97 (39-117) U/L Troponin I High Sens < 3.5 (<3.5-17.0) ng/L Total Protein 6.5 (6.5-8.0) g/dL Albumin 4.0 (3.5-5.0) g/dL COVID-19 (ABA) (Negative) COVID-19 Clin Com Influenza Type A (DAVID) (Negative) Influenza Type B (DAVID) (Negative) Influenza A & B Note 12/18/22 12/18/22 Range/Units 08:28 08:28 WBC (4.8-10.8) X10*3/uL RBC (4.20-5.50) X10*6/uL Hgb (12.0-16.0) g/dl Hct (37.0-47.0) % MCV (80.0-98.0) fL MCH (27.0-33.0) pg MCHC (31.0-35.0) g/dl RDW (11.0-16.0) % Plt Count (160-400) X10*3/uL MPV (9.4-12.3) fL Immature Gran % (Auto) (0.0-0.4) % Neut % (Auto) (45-73) % Lymph % (Auto) (20-40) % [place] % (Auto) (2-11) % Eos % (Auto) (0-4) % Baso % (Auto) (0-2) % Lymph # (Auto) (1.2-4.9) X10*3/uL [place] # (Auto) (0.1-1.2) X10*3/uL Eos # (Auto) (0.0-0.4) X10*3/uL Baso # (Auto) (0.0-0.2) X10*3/uL Abs Immat Gran (auto) (0.00-0.03) X10*3/uL Absolute Neuts (auto) (2.0-8.3) x10*3/uL Absolute Nucleated RBC (0.0-0.012) X10*3/uL Nucleated RBC % (auto) (0.0-0.2) /100WBC Sodium (135-145) mmol/L Potassium (3.3-5.1) mmol/L Chloride (96-108) mmol/L Carbon Dioxide (22-29) mmol/L Anion Gap (12-20) BUN (9-16) mg/dL Creatinine (0.5-1.4) mg/dL Estim Creat Clear Calc Estimated GFR Fasting Glucose (60-99) mg/dL Calcium (8.4-10.2) mg/dL Total Bilirubin (0.0-1.0) mg/dL AST (5-31) U/L ALT (0-31) U/L Alkaline Phosphatase (39-117) U/L Troponin I High Sens (<3.5-17.0) ng/L Total Protein (6.5-8.0) g/dL Albumin (3.5-5.0) g/dL COVID-19 (ABA) Negative (Negative) COVID-19 Clin Com See Note Influenza Type A (DAVID) Negative (Negative) Influenza Type B (DAVID) Negative (Negative) Influenza A & B Note See Note Independent Interpretation I performed an independent interpretation of an: EKG Interpretation: Normal sinus rhythm, HR-72, no STEMI, NC/QRS/QTC is within normal limits. Radiology Impression Radiologist Impression: My interpretation is in agreement with radiology use impression of the imaging study. Discharge Plan Discharge Clinical Impression: Atypical chest pain, Costochondritis, Neuropathy Patient Disposition: Home, Self-Care Instructions: Chest Wall Pain (ED), Costochondritis (ED), Peripheral Neuropathy (ED) Additional Instructions: 1. Resume all home medications as prescribed. 2. Recommend [id number] Tylenol/ibuprofen as well as lidocaine patch for your chest wall pain. 3. I recommend that you follow-up with your primary care provider in the next 1- 2 days for re-evaluation and further outpatient management. Return to the ER for any worsening symptoms. Prescriptions: No Action carbamazepine [Tegretol] 200 mg tablet 200 mg PO BID Qty: 60 0RF Referrals: Nadia Lam MD [Primary Care Provider] -
[2022-12-18 08:17] LABS: Alanine Aminotransferase 22 U/L (0-31); Alkaline Phosphatase 97 U/L (39-117); Anion Gap 15 (12-20); Aspartate Amino Transferase 32 U/L (5-31); Bilirubin Total 0.6 mg/dL (0.0-1.0); Blood Urea Nitrogen 18 mg/dL (9-16); Calcium 9.2 mg/dL (8.4-10.2); Carbon Dioxide 26 mmol/L (22-29); Chloride 106 mmol/L (96-108); Creatinine Clr Calc Pharmacy 57.1; Estimated Glomerular Filt Rate > 60; Glucose Fasting 113 mg/dL (60-99); Potassium 3.8 mmol/L (3.3-5.1); Sodium 143 mmol/L (135-145); Total Protein 6.5 g/dL (6.5-8.0)
[2022-12-18 08:24] LABS: Troponin-I High Sensitivity < 3.5 ng/L (<3.5-17.0)
[2022-12-18 08:54] LABS: IDNOW Serial# 16C4AD1C; IDNOW Serial# BCCEAD1C; Influenza A Negative (Negative); Influenza B2 Negative (Negative)
[2022-12-18 08:55] LABS: COVID-19 Test Negative (Negative)
== END 2022-12-18 09:46 | disposition home or self-care (01) ==
PROVIDERS: Emergency Provider Student in an Organized Health Care Education/Training Program; PCP Internal Medicine
DX: R07.89 Other chest pain (principal); G62.9 Polyneuropathy, unspecified; R20.0 Anesthesia of skin; M94.0 Chondrocostal junction syndrome [Tietze]; Z20.822 Contact with and (suspected) exposure to COVID-19; Z20.828 Contact with and (suspected) exposure to other viral communicable diseases; Z79.899 Other long term (current) drug therapy
CPT/HCPCS: 36415; 71046; 80053; 84484; 85025; 87502; 87635; 93005; 99283; 99284

== ENCOUNTER 2023-05-21 09:47 | Outpatient (REF) | payer BC, SELFPAY | END 2023-05-21 09:48 | disposition home or self-care (01) | LOC: HO.LAB 09:47 | PROVIDERS: PCP Internal Medicine; Visit Provider Internal Medicine | DX: Z00.00 Encounter for general adult medical examination without abnormal findings (principal); E78.00 Pure hypercholesterolemia, unspecified; I10 Essential (primary) hypertension; M81.8 Other osteoporosis without current pathological fracture | CPT/HCPCS: 36415; 80053; 80061; 82306; 85025 ==

== ENCOUNTER 2023-08-15 12:28 | Emergency (ER) | payer BC, SELFPAY ==
[2023-08-15 12:31] VITALS: BP 137/72; PULSE 71; RESP 18; TEMP 36; O2SAT 96; BMI 32.2
--- NOTE | 2023-08-15 12:36 | ED.GENADULT ---
HPI - General Adult General Chief complaint: Ear Problems Stated complaint: ear pain Time Seen by Provider: 08/15/23 12:44 Source: patient Mode of arrival: ambulatory Limitations: no limitations History of Present Illness HPI narrative: 78yoF with a PMHx of anemia, hypertension who is presenting to the ER with complaints of left ear pain a sharp stabbing pain that is intermittent since last night. She reports it is worse when she chews or while she talks. She reports she is also having left-sided neck pain and a sore throat when she swallows. She reports this all started around 16:00 when she was just sitting at home. She denies any recent travel or sick contacts, fevers, dizziness, headaches, neck pain/stiffness, weakness, recent tick bites, change in vision, paresthesias, rashes, recent falls or trauma, chest pain or shortness of breath, dyspnea on exertion orthopnea, palpitations or paresthesias, nausea or vomiting, diarrhea, abdominal pain or any other symptoms complaints or concerns at this time. MD complaint: Left ear pain and sore throat Onset (ago): day(s) (2) Quality: stabbing and sharp Pain Consistency: intermittent Relieving factors: none Exacerbating factors: eating and other (Swallowing or chewing) Associated symptoms: other (Sore throat) Treatments prior to arrival: none Related Data Previous Rx's Medication Instructions Recorded carbamazepine 200 mg tablet 200 mg PO BID #60 tabs 07/07/21 (Tegretol) cyclobenzaprine 10 mg tablet 10 mg PO Q8H #14 tabs 08/15/23 ibuprofen 800 mg tablet 800 mg PO Q8H PRN pain #14 tabs 08/15/23 Allergies Allergy/AdvReac Type Severity Reaction Status Date / Time No Known Allergies Allergy Verified 08/15/23 12:31 Review of Systems Review of Systems: Constitutional : No Weight loss, No Fever, No Chills, No Night Sweats, No Fatigue, No Malaise ENT/Mouth : No Hearing loss, + Left Ear Pain, No Nasal Congestion, No Sinus Pain, No Hoarseness, + sore throat, No Rhinorrhea, No Swallowing Difficulty Eyes: No Eye Pain, No Swelling, No Redness, No Foreign Body, No Discharge, No Vision Changes Cardiovascular : No Chest Pain, No SOB, No Dyspnea on Exertion, No Orthopnea, No Edema, No Palpitations Respiratory : No Cough, No Sputum, No Wheezing, No Smoke Exposure, No Dyspnea Gastrointestinal : No Nausea, No Vomiting, No Diarrhea, No Constipation, No abdominal Pain, No Hematochezia, No Melena Genitourinary : no irregular bleeding, No Dysuria, No Urinary Frequency, No Hematuria, No Urinary Incontinence, No Urgency, No Flank Pain, No Urinary Flow Changes, No Hesitancy Musculoskeletal : No joint pain, No Myalgias, No Joint Swelling Skin : No Skin Lesions, No rash Neuro : No Weakness, No Numbness, No Paresthesias, No Loss of Consciousness, No Dizziness, No Headache Psych : No Anxiety/Panic, No Depression, No SI/HI/AH/VH, No Social Issues, Heme/Lymph: No Bruising, No Bleeding,No Lymphadenopathy Endocrine : No Polyuria, No Polydipsia, No Temperature Intolerance Yes all other systems are reviewed and are negative FORMERLY [facility] Past Medical History Attestation statement: The following information was validated with the patient. Source: old records reviewed and nursing notes reviewed Medical History Hypertension Anemia Social History Social History Alcohol intake: never Patient Tobacco Use Status: Never used Tobacco Advance Directives: Yes Advance Directives Information Provided: Yes Advance Directives on File: No Physical Exam ED Vital Signs: Vital Signs - 24 hr 08/15/23 12:31 Temperature 96.8 F Pulse Rate 71 Respiratory Rate 18 Blood Pressure 137/72 Pulse Oximetry 96 Oxygen Delivery Method Room Air BMI result Body Mass Index 32.2 vital signs have been reviewed as normal and appeared to be correct. Blood pressure normal. Heart rate normal. Respiration rate normal. Temperature normal. Oxygen saturation normal. Appearance: Alert. Oriented X3. No acute distress. Head: Normal external exam. Normocephalic. Atraumatic. Eyes: PERRLA. EOMI. Conjunctiva and sclera normal. Eyelids normal. ENT: EAC normal. TM's Normal. No tenderness over the mastoid. Pharynx normal. Uvula midline. Moist mucous membranes. No lesions/ulcerations or masses noted on the tongue. Normal voice. No trismus noted. No drooling noted. No muffled voice noted. Neck: Normal inspection. Neck supple. FROM. No adenopathy. Thyroid Normal. No tracheal deviation noted. No crepitus is noted. No meningeal signs. No neck mass noted. Patient does have tenderness with palpation over the left TMJ joint with click noted. CVS: Normal heart rate and rhythm. Heart sound normal. Pulses normal throughout. No murmurs/rales/gallops. Respiratory: No respiratory distress. Painless inspiration. Breath sounds normal. No wheezes/rales/rhonchi noted. Chest nontender. No crepitus is noted. No signs of trauma noted. No accessory muscle usage noted or decreased air movement noted. No signs of trauma. Abdomen: Soft Back: Full range of motion noted. Nontender. No signs of trauma. Patient neuro intact bilaterally and distally on all 4 extremities. Patient's reflexes intact bilaterally and distally on all 4 extremities. No rashes/lesion/induration/fluctuance or signs of infection noted. Skin: Skin warm and dry. Normal skin color. Normal skin turgor. No rashes/lesions/lacerations noted. Extremities: Extremities exhibit normal range of motion and nontender. Neuro: Oriented X 3. No motor deficit. No sensory deficit. Reflexes normal. Normal steady gait. No focal neuro deficits noted. CN's II-XII intact bilaterally? Vascular: + radial pulses b/l Normal cap refill. No cyanosis noted to upper extremity nails Course Course Course Narrative: This is an RME: Additional HPI, ROS, PE not included below will be deferred to primary provider. Patient is a 78-year-old female who presents emergency department with reports of left ear pain and sore throat x2 days. Plan: Viral swabs, strep Reevaluation(s) Reevaluation #1: This is a 78-year-old female with a past medical history of anemia and hypertension presenting with left-sided ear pain that is a sharp stabbing intermittent pain with a sore throat all started yesterday around 16:00. On exam she has tenderness palpation over the left TMJ and she is noted to grind her teeth. She reports she has had this in the past. It appears that the patient has been seen here for left sided trigeminal neuralgia this could possibly be the diagnosis versus TMJ syndrome. Will DC home with Flexeril and Des with instructions to return if she develops a rash or any paresthesias or weakness or any other symptoms complaints or concerns. Along with instructions to follow-up with PCP. Time: 13:33 Medical Decision Making Medical Decision Making [facility] Narrative: see course Differential Diagnosis Differential Diagnoses: The differential diagnosis associated with the presentation includes I considered mastoiditis, epidural abscess, malig OE, CVA, shingles, meningitis, and other infxs but the hx, exam& data did not support the diagnoses. The pt/family was advised that some diseases present atypically & the pt was given explicit DC instructions Lab Data [facility] Lab Attestation statement: I reviewed the patient's lab results. Labs: Lab Results 08/15/23 Range/Units 12:44 COVID-19 (ABA) Negative (Negative) COVID-19 Clin Com See Note Influenza Type A (DAVID) Negative (Negative) Influenza Type B (DAVID) Negative (Negative) Influenza A & B Note See Note S. pyogenes GrpA DAVID Negative (Negative) Independent Historian Clinical information obtained from an independent historian. History obtained from or confirmed by: Other (Patient and medical records ) External Record Review External record reviewed: Other (Prior records reviewed including patient's prior ED visits for same complaint where she was diagnosed with trigeminal neuralgia) Tests considered The following testing was considered but not selected: I did consider labs and CT although patient does not have any other complaints and no focal deficits and has a normal exam. Therefore no additional labs or imaging indicated at this time. Prescription Management I considered prescription management with: Pain Medication (Flexeril Motrin) Chronic Conditions Patient?s care impacted by: Hypertension Social Determinants Patient?s care significantly limited by Social Determinants of Health including: Low income and Other Social Determinant of Health Discharge Plan Discharge Clinical Impression: Otalgia, left ear, Left-sided temporomandibular joint pain-dysfunction syndrome Patient Disposition: Home, Self-Care Instructions: Temporomandibular Disorder (ED), Earache (ED) Prescriptions: New ibuprofen 800 mg tablet 800 mg PO Q8H PRN (Reason: pain) Qty: 14 0RF cyclobenzaprine 10 mg tablet 10 mg PO Q8H Qty: 14 0RF No Action carbamazepine [Tegretol] 200 mg tablet 200 mg PO BID Qty: 60 0RF Referrals: Nadia Lam MD [Primary Care Provider] - 1 day
[2023-08-15 13:10] LABS: IDNOW Serial# 08D9AD1C; Strep A Nucleic Acid Negative (Negative)
[2023-08-15 13:15] LABS: COVID-19 Test Negative (Negative); IDNOW Serial# 9DB6401D; IDNOW Serial# BCCEAD1C; Influenza A Negative (Negative); Influenza B2 Negative (Negative)
== END 2023-08-15 13:37 | disposition home or self-care (01) ==
PROVIDERS: Nurse Practitioner Family; Emergency Provider Emergency Medicine Emergency Medical Services; PCP Internal Medicine
DX: H92.02 Otalgia, left ear (principal); M26.622 Arthralgia of left temporomandibular joint; Z20.822 Contact with and (suspected) exposure to COVID-19; Z20.828 Contact with and (suspected) exposure to other viral communicable diseases
CPT/HCPCS: 87502; 87635; 87651; 99283

== ENCOUNTER 2023-08-19 09:39 | Outpatient (REF) | payer BC, SELFPAY ==
[2023-08-19 10:05] LABS: MANUAL DIFF FLAG NO
[2023-08-19 10:35] LABS: Basophils Percent Auto 0.5 % (0-2); Eosinophils Absolute Auto 0.1 X10*3/uL (0.0-0.4); Eosinophils Percent Auto 0.8 % (0-4); Hematocrit 36.1 % (37.0-47.0); Hemoglobin 11.7 g/dl (12.0-16.0); Imm Gran Abs Auto 0.01 X10*3/uL (0.00-0.03); Imm Gran Pct Auto 0.1 % (0.0-0.4); Lymphocytes Absolute Auto 1.8 X10*3/uL (1.2-4.9); Lymphocytes Percent Auto 23.7 % (20-40); Mean Corpuscular HGB Conc 32.4 g/dl (31.0-35.0); Mean Corpuscular Hemoglobin 29.5 pg (27.0-33.0); Mean Corpuscular Volume 91.2 fL (80.0-98.0); Mean Platelet Volume 10.1 fL (9.4-12.3); Monocytes Absolute Auto 0.6 X10*3/uL (0.1-1.2); Monocytes Percent Auto 7.1 % (2-11); Neutrophils Absolute Auto 5.3 x10*3/uL (2.0-8.3); Neutrophils Percent Auto 67.8 % (45-73); Platelet Count 255 X10*3/uL (160-400); Red Blood Count 3.96 X10*6/uL (4.20-5.50); Red Cell Distribution Width 14.5 % (11.0-16.0); White Blood Count 7.8 X10*3/uL (4.8-10.8)
== END 2023-08-19 09:40 | disposition home or self-care (01) ==
LOC: HO.LAB 09:39
PROVIDERS: PCP Internal Medicine; Visit Provider Internal Medicine
DX: D64.9 Anemia, unspecified (principal); E78.00 Pure hypercholesterolemia, unspecified; I10 Essential (primary) hypertension; L98.8 Other specified disorders of the skin and subcutaneous tissue
CPT/HCPCS: 36415; 85025

== ENCOUNTER 2023-10-03 18:47 | Emergency (ER) | payer BC, SELFPAY ==
--- NOTE | ~2023-10-03 | XR_ITS ---
EXAMINATION: CHEST 2 VIEWS CLINICAL INFORMATION: shortness of breath. COMPARISON: 12/18/2022. TECHNIQUE: PA and lateral views of the chest obtained. FINDINGS: The lungs are well expanded. No focal infiltrate, effusion, edema, or pneumothorax. Cardiac and mediastinal silhouettes are prominent with a large hiatal hernia again noted. No acute bony abnormality seen XR/XR chest 2V IMPRESSION: Large hiatal hernia. No acute airspace disease.
--- NOTE | ~2023-10-03 | CT_ITS ---
CT ANGIOGRAM OF CHEST AND ABDOMEN WITH CONTRAST HISTORY: Pain. TECHNIQUE: CT images of the chest, abdomen and pelvis were obtained following the administration of 70 cc of Omnipaque 350 intravenous contrast. MIP images were also constructed by the technologist on the CT console. This CT examination was performed using dose optimization techniques as appropriate, variously including the following: *Automated exposure control *Adjustment of mA and/or kV according to patient size (this includes techniques or standardized protocols for targeted exams where dose is matched to indication/reason for exam; i.e. extremities or head) *Use of iterative reconstruction technique DLP: 580 mGy*cm. COMPARISON: Chest radiograph of earlier today. FINDINGS: VASCULAR: The thoracic and abdominal aorta are normal in caliber without evidence of dissection. No filling defects are identified within the central pulmonary arteries. The celiac, superior mesenteric, inferior mesenteric, and renal arteries are patent. Scattered mild to moderate atherosclerotic disease. Pulmonary arteries are mildly enlarged, suggesting some degree of pulmonary hypertension. NONVASCULAR: Chest: Lung: No focal consolidation or significant groundglass disease. Central airways are patent. 4 mm solid pulmonary nodule in the right upper lobe (7:182). 2 mm solid left upper lobe nodule (7:187). A few bilateral micronodules. Additional perifissural nonaggressive appearing nodules, favoring to represent lymph nodes, for which no imaging follow-up is recommended. Mediastinum: Cardiomegaly with dilatation of the left atrium and pulmonary arteries. No pericardial effusion. Coronary artery calcifications are visualized. No hilar or mediastinal lymphadenopathy. Normal thyroid gland. Large hiatal hernia. Pericardium/Pleura: No pleural effusion. No pleural mass or thickening. No pneumothorax. Chest Wall/Axilla: No lymphadenopathy by size criteria. ABDOMEN/PELVIS: Evaluation of the solid organs is limited by the early phase of intravenous contrast. Peritoneal Space: No free air or free fluid. Liver, Gallbladder, Biliary Tree: Decreased attenuation of liver parenchyma suggesting hepatic steatosis. Otherwise, liver is normal in size and shape without focal lesion. There is some degree of reflux of contrast into the hepatic veins, suggesting elevated right-sided heart pressures. Cholecystectomy with nonspecific common bile duct dilatation measuring up to 10 mm. No significant intrahepatic biliary ductal dilatation. Pancreas: Unremarkable. Spleen: Heterogeneous physiologic attenuation of the spleen secondary to arterial timing of IV contrast, limiting evaluation of infarctions and focal lesions. Normal size. Adrenal Glands: Unremarkable. Kidneys and Ureters: The kidneys are normal in size, shape, and attenuation. Bilateral cortical and parapelvic simple appearing cysts, for which no imaging follow-up is recommended. No hydronephrosis, hydroureter, or calculi seen. No perinephric stranding. Bladder: Unremarkable. Gastrointestinal Tract: Large hiatal hernia with organoaxial volvulus, greater curvature of the stomach is cephalad with respect to the lesser curvature. The small bowel is nondilated. Duodenal diverticulum (9:63). Normal appendix. Colonic diverticulosis with some questionable wall thickening in the sigmoid colon but with no significant pericolonic fat stranding or free fluid. No evidence of bowel obstruction. Pelvis: Endometrial thickening measuring up to 9 mm with a nonspecific focal hyperattenuating abnormality along the upper third of the endometrial canal best visualized on sagittal image 57 series 11. Abdominal Wall: No significant hernia is appreciated. Lymphatic: No lymphadenopathy by size criteria. Osseus Structures: No acute or aggressive osseous findings. CT/CT angio abdomen IMPRESSION: 1. No evidence of aortic dissection. 2. Cardiomegaly with dilatation of the left atrium and pulmonary arteries, and with some degree of reflux into the hepatic veins, suggesting pulmonary hypertension and elevated right-sided heart pressures. 3. Large hiatal hernia with organoaxial volvulus of the stomach. 4. Colonic diverticulosis with questionable wall thickening in the sigmoid colon, but without significant pericolonic fat stranding or free fluid. Findings are most likely related with the combination of chronic muscular hyperplasia and luminal underdistention, although early mild acute diverticulitis cannot be excluded. 5. Endometrial thickening measuring up to 9 mm with a nonspecific focal hyperattenuating abnormality along the upper third of the endometrial canal. Recommend outpatient consultation with TOOL MACHINE SET UP OPERATOR and further evaluation with outpatient pelvic ultrasound for evaluation of endometrial hyperplasia/neoplasia. 6. Hepatic steatosis. 7. Nonspecific dilatation of the common bile duct most likely related with postcholecystectomy state. Correlate with laboratory findings. 8. Subcentimeter pulmonary nodules, the largest measuring 4 mm, a few with upper lobe location. According to the UPDATED 2017 Fleischner Society recommendations, the advised follow-up imaging for nodules <6mm in the upper lobes is not necessarily required in low-risk patients. In high-risk patients with a nodule in the upper lobe and/or demonstrating suspicious morphology, an optional CT follow-up at 12 months may be obtained. If stable at 12 months, no further follow-up is recommended.
--- NOTE | 2023-10-03 18:51 | ECG_ITS ---
Test Reason : ARM PAIN Blood Pressure : / mmHG Vent. Rate : 075 BPM Atrial Rate : 075 BPM P-R Int : 160 ms QRS Dur : 090 ms QT Int : 396 ms P-R-T Axes : 028 015 020 degrees QTc Int : 442 ms Sinus rhythm with Premature atrial complexes Otherwise normal ECG When compared with ECG of 18-DEC-2022 07:55, Premature atrial complexes are now Present Nonspecific T wave abnormality no longer evident in Anterior leads Referred By: Generic ED Physician Electronically Signed By:DAVINA GONG MD
[2023-10-03 19:13] VITALS: BP 190/96; PULSE 73; RESP 18; TEMP 36.8; O2SAT 97; BMI 34.2
--- NOTE | 2023-10-03 19:15 | ED.GENADULT ---
HPI - General Adult General Chief complaint: General Medical Stated complaint: burning sensation and left arm pain high bp Time Seen by Provider: 10/03/23 21:01 Source: patient, family, RN notes reviewed and old records reviewed Mode of arrival: ambulatory Limitations: no limitations History of Present Illness HPI narrative: 78-year-old female presents for evaluation of chest pain that radiates to her back. She reports that she woke up with the Pain 3:00 a.m. this morning. Denies any shortness of breath. No abdominal pain nausea vomiting. She states that she has some numbness and heaviness to her left arm patient is also describing associated dizziness patient reports since Friday, 3 days ago her blood pressures been elevated as high as 200/90 despite taking her antihypertensive medications currently she reports that his symptoms are mild but I worse with moving like denies any history of cardiac disease Related Data Previous Rx's Medication Instructions Recorded carbamazepine 200 mg tablet 200 mg PO BID #60 tabs 07/07/21 (Tegretol) cyclobenzaprine 10 mg tablet 10 mg PO Q8H #14 tabs 08/15/23 ibuprofen 800 mg tablet 800 mg PO Q8H PRN pain #14 tabs 08/15/23 cyclobenzaprine 10 mg tablet 10 mg PO TID PRN muscle spasm #12 10/03/23 tabs Allergies Allergy/AdvReac Type Severity Reaction Status Date / Time No Known Allergies Allergy Verified 08/15/23 12:31 Review of Systems Constitutional: Constitutional: Denies chills and Denies fever(s) ENT: Denies vertigo Cardiovascular: Cardiovascular: Reports chest pain and Reports dyspnea Respiratory: Respiratory: Reports pain on inspiration and Reports dyspnea Gastrointestinal: Gastrointestinal: Denies abdominal pain, Denies nausea and Denies vomiting Musculoskeletal: Musculoskeletal: Reports back pain Integumentary/Breasts: Skin/Breast: Denies rash Neurologic: Denies vertigo PMFSH Past Medical History Medical History Hypertension Anemia Social History Social History Alcohol intake: never Patient Tobacco Use Status: Never used Tobacco Advance Directives: No Advance Directives Information Provided: No Physical Exam ED Vital Signs: Vital Signs - 24 hr 10/03/23 19:13 11/17/23 20:58 Temperature 98.3 F 98.2 F Pulse Rate 73 66 Respiratory Rate 18 17 Blood Pressure 190/96 H 182/77 H Pulse Oximetry 97 95 Oxygen Delivery Method Room Air Room Air BMI result Body Mass Index 34.2 Const General: healthy appearing, comfortable, no acute distress, alert and awake Nutritional Appearance: well nourished Orientation/consciousness: patient oriented x3 HENMT Head: Yes normocephalic and Yes atraumatic Eyes Eyelids: Yes eyelids normal Conjunctivae: conjunctivae normal Sclerae: sclerae normal Corneas: corneas normal Pupils: Equal, round and reactive pupils present EOM: EOMs intact bilaterally Neck Neck: Yes full ROM Resp Effort & Inspection: normal respiratory effort, able to speak in complete sentences, no audible wheezes and not labored Auscultation: clear to auscultation bilaterally Cardio Rate: regular rate Rhythm: regular rhythm GI Inspection: No distended Palpation (GI): Soft to palpation, not firm, nontender, no guarding and not rigid Back/Spine/Pelvis Other: mild left thoracic paraspinous muscle tenderness. No vertebral tenderness. Skin General skin exam: elasticity normal Neuro General: patient oriented x3 Cranial nerves: Yes Equal, round and reactive pupils present and Yes Bilaterally intact EOM present Cognition (Neuro): normal cognition Extrem Other: Moving all extremities well without any obvious deformities Course Course Course Narrative: This is an RME: Additional HPI, ROS, PE not included below will be deferred to primary provider. This is a 25-[id number]-wld-female, anemia and hypertension presenting to the emergency department with a complaint of burning sensation in her back and shortness of breath since yesterday. Burning sensation in her back turn into ?back pressure? today. She states that she has had a soreness, heaviness and numbness in her left arm which started today. Patient also endorses some dizziness 1 hour ago. Plan: Labs, EKG, viral swabs, chest x-ray Reevaluation(s) Reevaluation #1: Patient was provided a copy of her CT scan to take to her doctor in given the numerous amount of incidental findings. I discussed all findings with the patient atrial follow-up with her primary doctor for further evaluation and workup on outpatient basis. All questions were answered. Specifically the patient's aorta is in normal caliber Time: 23:12 Medications Administered Discontinued Medications Generic Name Dose Route Start Last Admin Trade Name Freq PRN Reason Stop Dose Admin Iohexol 100 ml 10/03/23 21:58 10/03/23 21:58 Iohexol 350 Mg/Ml 100 Ml Infus..Btl IV 10/03/23 21:59 70 ml ONCE ONE Administration Medical Decision Making Medical Decision Making [facility] Narrative: 70-year-old male presents for evaluation of atraumatic back pain. Her symptoms are reproducible on exam. Her pain radiates through to her Chest. History exam is most consistent with muscle strain. Were given her significant hypertension, back pain that radiates through to her chest with CT angiography of the chest and abdomen to rule out AAA/aortic dissection though I feel that these are favored to be less likely. patient's labs are without any significant abnormalities Differential Diagnosis Differential Diagnoses: The differential diagnosis associated with the presentation includes chest pain Back pain Muscle strain Radiculopathy Anxiety AAA less likely Admission/Observation Consideration of admission/observation: Escalation of care including admission/observation considered patient's blood pressure improved without intervention does not require admission for hypertensive urgency Lab Data [facility] Lab Attestation statement: I reviewed the patient's lab results. patient has no leukocytosis, her mild anemia appears consistent with her recent baseline. It is a normocytic anemia. There is no left shift. electrolytes within normal limits, renal function normal limits, troponin is negative. 10/03/23 19:41 10/03/23 19:41 Labs: Lab Results 10/03/23 10/03/23 Range/Units 19:41 19:49 WBC 7.6 (4.8-10.8) X10*3/uL RBC 3.77 L (4.20-5.50) X10*6/uL Hgb 11.1 L (12.0-16.0) g/dl Hct 33.9 L (37.0-47.0) % MCV 89.9 (80.0-98.0) fL MCH 29.4 (27.0-33.0) pg MCHC 32.7 (31.0-35.0) g/dl RDW 14.9 (11.0-16.0) % Plt Count 257 (160-400) X10*3/uL MPV 9.7 (9.4-12.3) fL Immature Gran % (Auto) 0.1 (0.0-0.4) % Neut % (Auto) 60.0 (45-73) % Lymph % (Auto) 29.6 (20-40) % [place] % (Auto) 7.9 (2-11) % Eos % (Auto) 2.0 (0-4) % Baso % (Auto) 0.4 (0-2) % Lymph # (Auto) 2.3 (1.2-4.9) X10*3/uL [place] # (Auto) 0.6 (0.1-1.2) X10*3/uL Eos # (Auto) 0.2 (0.0-0.4) X10*3/uL Baso # (Auto) 0.0 (0.0-0.2) X10*3/uL Abs Immat Gran (auto) 0.01 (0.00-0.03) X10*3/uL Absolute Neuts (auto) 4.6 (2.0-8.3) x10*3/uL Absolute Nucleated RBC 0.000 (0.0-0.012) X10*3/uL Nucleated RBC % (auto) 0.0 (0.0-0.2) /100WBC Sodium 141 (135-145) mmol/L Potassium 4.0 (3.3-5.1) mmol/L Chloride 106 (96-108) mmol/L Carbon Dioxide 27 (22-29) mmol/L Anion Gap 12 (12-20) BUN 16 (9-16) mg/dL Creatinine 0.75 (0.5-1.4) mg/dL Estim Creat Clear Calc 57.6 Estimated GFR > 60 Random Glucose 104 (60-115) mg/dL Calcium 9.5 (8.4-10.2) mg/dL Total Bilirubin 0.3 (0.0-1.0) mg/dL Direct Bilirubin 0.1 (0.0-0.5) mg/dL AST 28 (5-31) U/L ALT 18 (0-31) U/L Alkaline Phosphatase 105 (39-117) U/L Troponin I High Sens < 2.7 (<3.5-17.0) ng/L Total Protein 7.0 (6.5-8.0) g/dL Albumin 4.0 (3.5-5.0) g/dL Lipase 28 (8-78) U/L Urine Color Yellow Urine Appearance Clear Urine pH 6.0 (5.0-9.0) Ur Specific Pierre Part 1.015 (1.005-1.025) Urine Protein Negative (Neg-Trace) mg/dL Urine Glucose (UA) Negative (Negative) mg/dL Urine Ketones Negative (Negative) mg/dL Urine Blood Negative (Negative) Urine Nitrite Negative (Negative) Ur Leukocyte Esterase Negative (Negative) Influenza Type A (PCR) NEGATIVE (Negative) Influenza Type B (PCR) NEGATIVE (Negative) RSV RNA Qual (PCR) NEGATIVE (Negative) SARS-CoV-2 RNA (RT-PCR) NEGATIVE (Negative) Independent Interpretation I performed an independent interpretation of an: EKG ( Sinus rhythm with occasional PAC. No ST segment elevation depressions. No ectopy) Radiology Impression Discussion of test interpretation with radiology: I have reviewed the radiologist's reading. ( aorta is within normal caliber. Multiple incidental findings) Discharge Plan Discharge Clinical Impression: Hypertension, Back pain Patient Disposition: Home, Self-Care Instructions: Hypertension (ED), Back Pain (ED) Additional Instructions: all of your tests in the ER were reassuring today. This includes your blood work, EKG. Your CT scan of the chest and abdomen did not show any emergent findings but had several incidental findings that were discussed follow this up with your primary doctor you may use cyclobenzaprine as needed for muscle spasms Prescriptions: New cyclobenzaprine 10 mg tablet 10 mg PO TID PRN (Reason: muscle spasm) Qty: 12 0RF No Action carbamazepine [Tegretol] 200 mg tablet 200 mg PO BID Qty: 60 0RF ibuprofen 800 mg tablet 800 mg PO Q8H PRN (Reason: pain) Qty: 14 0RF cyclobenzaprine 10 mg tablet 10 mg PO Q8H Qty: 14 0RF
--- NOTE | 2023-10-03 19:31 | MHC.EDTECH ---
Attempted to get labs,patient was brought to X-ray, awaiting for her return at this time.
[2023-10-03 19:48] LABS: MANUAL DIFF FLAG NO
--- NOTE | 2023-10-03 19:49 | MHC.EDTECH ---
Patient brought from X-ray to triage area,labs,Sars/Flu/RSV and Urine was collected and sent to lab. Patient brought back to waiting area.
[2023-10-03 19:50] LABS: Basophils Percent Auto 0.4 % (0-2); Eosinophils Absolute Auto 0.2 X10*3/uL (0.0-0.4); Hematocrit 33.9 % (37.0-47.0); Hemoglobin 11.1 g/dl (12.0-16.0); Imm Gran Abs Auto 0.01 X10*3/uL (0.00-0.03); Imm Gran Pct Auto 0.1 % (0.0-0.4); Lymphocytes Absolute Auto 2.3 X10*3/uL (1.2-4.9); Lymphocytes Percent Auto 29.6 % (20-40); Mean Corpuscular HGB Conc 32.7 g/dl (31.0-35.0); Mean Corpuscular Hemoglobin 29.4 pg (27.0-33.0); Mean Corpuscular Volume 89.9 fL (80.0-98.0); Mean Platelet Volume 9.7 fL (9.4-12.3); Monocytes Absolute Auto 0.6 X10*3/uL (0.1-1.2); Monocytes Percent Auto 7.9 % (2-11); Neutrophils Absolute Auto 4.6 x10*3/uL (2.0-8.3); Platelet Count 257 X10*3/uL (160-400); Red Blood Count 3.77 X10*6/uL (4.20-5.50); Red Cell Distribution Width 14.9 % (11.0-16.0); White Blood Count 7.6 X10*3/uL (4.8-10.8)
[2023-10-03 20:05] LABS: Alanine Aminotransferase 18 U/L (0-31); Alkaline Phosphatase 105 U/L (39-117); Anion Gap 12 (12-20); Aspartate Amino Transferase 28 U/L (5-31); Bilirubin Direct 0.1 mg/dL (0.0-0.5); Bilirubin Total 0.3 mg/dL (0.0-1.0); Blood Urea Nitrogen 16 mg/dL (9-16); Calcium 9.5 mg/dL (8.4-10.2); Carbon Dioxide 27 mmol/L (22-29); Chloride 106 mmol/L (96-108); Creatinine Clr Calc Pharmacy 57.6; Estimated Glomerular Filt Rate > 60; Glucose Random 104 mg/dL (60-115); Lipase 28 U/L (8-78); Sodium 141 mmol/L (135-145)
[2023-10-03 20:08] LABS: Appearance Urine Clear; Color Urine Yellow; Glucose Urine UA Negative (Negative); Leukocyte Esterase Urine Negative (Negative); Nitrite Urine Negative (Negative); Specific Gravity - Urine 1.015 (1.005-1.025); Urine Blood Negative (Negative); Urine Ketones Negative (Negative); Urine Protein Negative (Neg-Trace)
[2023-10-03 20:13] LABS: Troponin-I High Sensitivity < 2.7 ng/L (<3.5-17.0)
[2023-10-03 20:25] LABS: Influenza A PCR NEGATIVE (Negative); Influenza B PCR NEGATIVE (Negative); Resp Syncy Virus RNA Qual PCR NEGATIVE (Negative); SARS COV2 PCR INHOUSE NEGATIVE (Negative)
[2023-10-03 20:58] VITALS: BP 182/77; PULSE 66; RESP 17; TEMP 36.8; O2SAT 95
[2023-10-03] MEDS: iohexoL 350 MG/ML 100 ML INFUS..BTL IV (21:58)
== END 2023-10-03 23:31 | disposition home or self-care (01) ==
PROVIDERS: Physician Assistant Medical; Emergency Provider Emergency Medicine; PCP Internal Medicine
DX: M54.50 Low back pain, unspecified (principal); M79.602 Pain in left arm; R42 Dizziness and giddiness; I10 Essential (primary) hypertension; R07.89 Other chest pain; R06.02 Shortness of breath; Z20.822 Contact with and (suspected) exposure to COVID-19; Z20.828 Contact with and (suspected) exposure to other viral communicable diseases; Z79.899 Other long term (current) drug therapy
CPT/HCPCS: 0241U; 36415; 71046; 71275; 74175; 80048; 80076; 81003; 83690; 84484; 85025; 93005; 99284; Q9967

== ENCOUNTER 2023-11-04 10:49 | Emergency (ER) | payer BC, SELFPAY ==
--- NOTE | ~2023-11-04 | XR_ITS ---
EXAMINATION: XR CHEST CLINICAL INFORMATION: Pain. COMPARISON: Most recent chest radiograph dated 10/03/2023. TECHNIQUE: 2 views of the chest were obtained. FINDINGS: Redemonstration of a prominent hiatal hernia with an air-fluid level. Minimal left basilar atelectasis, unchanged. No new airspace consolidation. No pleural effusion or pneumothorax. Stable cardiomediastinal silhouette. Right upper quadrant surgical clips. XR/XR chest 2V IMPRESSION: 1. No acute cardiopulmonary findings. 2. Prominent hiatal hernia with minimal left basilar atelectasis, unchanged.
[2023-11-04 11:56] VITALS: BP 157/63; PULSE 67; RESP 16; TEMP 36.3; O2SAT 98; BMI 34.2
--- NOTE | 2023-11-04 12:00 | ED_ITS ---
HPI - General Adult General Chief complaint: Upper Respiratory Symptoms Stated complaint: cold for two weeks feels congestion Time Seen by Provider: 11/04/23 13:20 Source: patient Mode of arrival: ambulatory Limitations: no limitations History of Present Illness HPI narrative: Patient is a 78-year-old female who reports history of HTN, asthma in the past but is not currently utilizing any inhalers or other asthma treatments presenting to the emergency department with complaint of cough and wheezing for the past 13 days. She denies fevers. Denies any sore throat or ear pain. Denies abdominal pain, nausea, vomiting, diarrhea. Has not used any [id number] medications for her symptoms. She denies chest pain or palpitations. Denies recent calf pain or swelling, lower extremity edema. MD complaint: Cough, wheezing Onset (ago): week(s) Location: chest Radiation: non-radiation Severity: moderate Associated symptoms: denies other symptoms Treatments prior to arrival: none Related Data Previous Rx's Medication Instructions Recorded carbamazepine 200 mg tablet 200 mg PO BID #60 tabs 07/07/21 (Tegretol) cyclobenzaprine 10 mg tablet 10 mg PO Q8H #14 tabs 08/15/23 ibuprofen 800 mg tablet 800 mg PO Q8H PRN pain #14 tabs 08/15/23 cyclobenzaprine 10 mg tablet 10 mg PO TID PRN muscle spasm #12 10/03/23 tabs albuterol sulfate 90 mcg/actuation 2 puff inhalation Q4-6H PRN 11/04/23 aerosol inhaler shortness of breath or wheezing #6.7 grams azithromycin 250 mg tablet See Rx Instructions PO .COMPLEX #6 11/04/23 tabs benzonatate 100 mg capsule 100 mg PO TID PRN cough #14 caps 11/04/23 prednisone 20 mg tablet 40 mg (2 x 20 mg) PO DAILY #10 tabs 11/04/23 Allergies Allergy/AdvReac Type Severity Reaction Status Date / Time No Known Allergies Allergy Verified 08/15/23 12:31 Review of Systems Review of Systems: As per HPI. Yes all other systems are reviewed and are negative Constitutional: Constitutional: Reports as per HPI PMF Past Medical History Medical History Hypertension Anemia Social History Social History Alcohol intake: never Patient Tobacco Use Status: Never used Tobacco Advance Directives: No Advance Directives Information Provided: Yes Physical Exam ED Vital Signs: Vital Signs - 24 hr 11/04/23 11:56 11/04/23 14:09 Temperature 97.4 F Pulse Rate 67 62 Respiratory Rate 16 20 Blood Pressure 157/63 H Pulse Oximetry 98 Oxygen Delivery Method Room Air BMI result Body Mass Index 34.2 Vital signs have been reviewed and appear to be correct. Blood pressure elevated. Heart rate normal. Respiratory rate normal. Temperature normal. Oxygen saturation normal. Const General: cooperative, healthy appearing and no acute distress Orientation/consciousness: oriented to person, oriented to place, oriented to time and patient oriented x3 Limitations: no limitations HENMT Head: Yes normocephalic and Yes atraumatic Ears: external ears normal General nose exam: Normal external nose present Face and sinus: Yes face symmetric Mouth: oropharynx normal and moist mucous membranes Throat: Yes uvula midline Eyes Pupils: Equal, round and reactive pupils present Neck Neck: Yes normal visual inspection and Yes supple Resp Effort & Inspection: normal respiratory effort, able to speak in complete sentences, normal respiratory pattern, no respiratory distress, no retractions and no use of accessory muscles Auscultation: wheezes expiratory wheezes and throughout Cardio Rate: regular rate Rhythm: regular rhythm Heart sounds: S1 normal heart sound present and S2 normal heart sound present GI Palpation (GI): Soft to palpation and nontender Auscultation: normoactive bowel sounds General: Yes no CVA tenderness Back/Spine/Pelvis Back: no CVA tenderness Skin General skin exam: elasticity normal and turgor normal Neuro General: oriented to person, oriented to place, oriented to time, patient oriented x3, moves all extremities, no focal motor deficits and CN's II-XI intact bilaterally Cranial nerves: Yes Equal, round and reactive pupils present Cognition (Neuro): normal cognition Extrem General: Yes full ROM, Yes no pedal edema and Yes no calf tenderness Psych Mental Status: mental status grossly normal Affect: normal affect Thought process: Normal thought process present Course Course Course Narrative: RME- 78-year-old female presents for evaluation of cough, congestion, sore throat for 2 weeks. Plan for swabs and chest x-ray. She is well appearing Medications Administered Discontinued Medications Generic Name Dose Route Start Last Admin Trade Name Freq PRN Reason Stop Dose Admin Albuterol Sulfate 2.5 mg/ 0 mg 11/04/23 14:04 11/04/23 14:08 Albuterol/Ipratropium 3 ml INHALE 11/04/23 14:05 5.5 dose ONCE ONE Administration Medical Decision Making Medical Decision Making [facility] Narrative: Patient is a 78-year-old female who reports history of HTN, asthma in the past but is not currently utilizing any inhalers or other asthma treatments presenting to the emergency department with complaint of cough and wheezing for the past 13 days. On exam patient is awake, A+Ox3, BP mildly elevated, VS otherwise WNL, afebrile, normal neurological exam without focal deficits, physical exam findings as above. Given reported symptoms and physical exam findings, initial differential includes viral illness, asthma exacerbation, bronchitis, pneumonia. Swabs for COVID, flu, RSV negative. X-ray notable for no evidence of pneumonia. My interpretation is in agreement with the radiologist's interpretation. ED bronchodilator protocol ordered. Patient reports improvement in symptoms after treatment. Given ongoing symptoms, will treat patient for bronchitis at this time with azithromycin, benzonatate, prednisone, albuterol inhaler. Instructed patient follow-up with primary care provider. Return precautions discussed at bedside. Patient verbalized understanding of and agreement with plan. Differential Diagnosis Differential Diagnoses: The differential diagnosis associated with the presentation includes As per [facility]. Lab Data [facility] Lab Attestation statement: I reviewed the patient's lab results. As per [facility]. Labs: Lab Results 11/04/23 Range/Units 12:03 Influenza Type A (PCR) NEGATIVE (Negative) Influenza Type B (PCR) NEGATIVE (Negative) RSV RNA Qual (PCR) NEGATIVE (Negative) SARS-CoV-2 RNA (RT-PCR) NEGATIVE (Negative) S. pyogenes GrpA DAVID Negative (Negative) Independent Interpretation I performed an independent interpretation of an: Plain X-Ray Interpretation: No evidence of pneumonia Radiology Impression Discussion of test interpretation with radiology: I have reviewed the radiologist's reading. Radiologist Impression: XR/XR chest 2V IMPRESSION: 1. No acute cardiopulmonary findings. 2. Prominent hiatal hernia with minimal left basilar atelectasis, unchanged. External Record Review External record reviewed: Inpatient record, Office record and Outpatient record Prescription Management I considered prescription management with: Antibiotic and Other Chronic Conditions Patient?s care impacted by: Hypertension Discharge Plan Discharge Clinical Impression: Bronchitis Patient Disposition: Home, Self-Care Instructions: How to Use a Metered-Dose Inhaler (ED), Acute Bronchitis (ED) Additional Instructions: You were evaluated in the emergency department today for cough and shortness of breath. You are being treated for bronchitis with an antibiotic, please complete the full course as prescribed. You are also being prescribed a short course of steroids to decrease inflammation. You are being prescribed an inhaler which you can use every 4-6 hours as needed for shortness of breath. You are being prescribed cough medicine which she can use every 8 hours as needed. Please follow-up with your primary care provider this week. Return to the emergency department if you develop worsening shortness of breath, difficulty breathing, chest pain, fever not improved with Tylenol or ibuprofen, or any other concerning symptoms. Prescriptions: New azithromycin 250 mg tablet See Rx Instructions .ROUTE .COMPLEX Qty: 6 0RF Rx Instructions: For 250 mg dose pack: take 500 mg today (day 1), then 250 mg for 4 days (days 2-5) benzonatate 100 mg capsule 100 mg PO TID PRN (Reason: cough) Qty: 14 0RF albuterol sulfate 90 mcg/actuation HFA aerosol inhaler 2 puff inhalation Q4-6H PRN (Reason: shortness of breath or wheezing) Qty: 6.7 0RF prednisone 20 mg tablet 40 mg PO DAILY Qty: 10 0RF No Action carbamazepine [Tegretol] 200 mg tablet 200 mg PO BID Qty: 60 0RF ibuprofen 800 mg tablet 800 mg PO Q8H PRN (Reason: pain) Qty: 14 0RF cyclobenzaprine 10 mg tablet 10 mg PO Q8H Qty: 14 0RF cyclobenzaprine 10 mg tablet 10 mg PO TID PRN (Reason: muscle spasm) Qty: 12 0RF
[2023-11-04 12:20] LABS: IDNOW Serial# 58CA691E; Strep A Nucleic Acid Negative (Negative)
[2023-11-04 12:54] LABS: Influenza A PCR NEGATIVE (Negative); Influenza B PCR NEGATIVE (Negative); Resp Syncy Virus RNA Qual PCR NEGATIVE (Negative); SARS COV2 PCR INHOUSE NEGATIVE (Negative)
[2023-11-04] MEDS: Albuterol Sulfate 2.5 MG, Albuterol/Iprat 2.5/0.5MG 3 ML 3 ML INHALE (14:08)
[2023-11-04 14:09] VITALS: PULSE 62; RESP 20; O2SAT 98
== END 2023-11-04 15:42 | disposition home or self-care (01) ==
PROVIDERS: Physician Assistant; Emergency Provider Emergency Medicine; PCP Internal Medicine
DX: J40 Bronchitis, not specified as acute or chronic (principal); R05.9 Cough, unspecified; R06.2 Wheezing; R07.89 Other chest pain; Z20.822 Contact with and (suspected) exposure to COVID-19; Z20.828 Contact with and (suspected) exposure to other viral communicable diseases; Z79.899 Other long term (current) drug therapy
CPT/HCPCS: 0241U; 71046; 87651; 94640; 99283; 99284

== ENCOUNTER 2023-12-05 16:55 | Emergency (ER) | payer BC, SELFPAY ==
--- NOTE | ~2023-12-05 | US_ITS ---
Examination: Right lower extremity duplex venous study. Right knee x-ray. CLINICAL INDICATION: Atraumatic knee pain. COMPARISON: None. TECHNIQUE: Routine grayscale, color and Doppler imaging of right lower extremity veins are performed. Right knee 4 views. FINDINGS: LEFT KNEE: There is loss of tricompartment joint space with moderate periarticular spurring. There are no loose bodies, fracture or dislocation. No abnormal joint effusion seen. ULTRASOUND RIGHT LOWER LEG: There is normal compression, respiratory variation and color flow seen in the right common femoral, greater saphenous, superficial femoral, popliteal, posterior tibial and peroneal veins. No Ardon's cyst seen. No soft tissue edema. Normal flow visualized in the left common femoral vein. US/US venous duplex LE RT IMPRESSION: No evidence of DVT right lower extremity. Superior advanced degenerative osteoarthritic changes right knee. No visible acute fracture or dislocation seen.
[2023-12-05 18:05] VITALS: BP 163/75; PULSE 73; RESP 18; TEMP 36.1; O2SAT 96; BMI 33.2
--- NOTE | 2023-12-05 18:05 | ED_ITS ---
HPI - Extremity Problem General Chief complaint: Extremity Injury, Lower Stated complaint: R knee pain/R foot pain Time Seen by Provider: 12/05/23 19:42 Source: patient, RN notes reviewed and old records reviewed Mode of arrival: ambulatory Limitations: no limitations History of Present Illness HPI Narrative: 78 year old female presents for evaluation of right knee pain x 1 month. Patient denies inciting trauma. Notes that her right knee is more swollen than is her baseline. She states that the pain is worse when standing for long periods of time & is able to ambulate but is using a walker which is new to her. States she has been using ibuprofen with moderate relief. Denies fevers, chills, rash, or recent fall. Patient does not take blood thinners and denies recent travel. MD Complaint: extremity pain and extremity swelling Onset (ago): week(s) Pain Consistency: intermittent Location: right and lower extremity Quality: aching Relieving factors: medication Related Data Previous Rx's Medication Instructions Recorded carbamazepine 200 mg tablet 200 mg PO BID #60 tabs 07/07/21 (Tegretol) cyclobenzaprine 10 mg tablet 10 mg PO Q8H #14 tabs 08/15/23 ibuprofen 800 mg tablet 800 mg PO Q8H PRN pain #14 tabs 08/15/23 cyclobenzaprine 10 mg tablet 10 mg PO TID PRN muscle spasm #12 10/03/23 tabs albuterol sulfate 90 mcg/actuation 2 puff inhalation Q4-6H PRN 11/04/23 aerosol inhaler shortness of breath or wheezing #6.7 grams azithromycin 250 mg tablet See Rx Instructions PO .COMPLEX #6 11/04/23 tabs benzonatate 100 mg capsule 100 mg PO TID PRN cough #14 caps 11/04/23 prednisone 20 mg tablet 40 mg (2 x 20 mg) PO DAILY #10 tabs 11/04/23 Allergies Allergy/AdvReac Type Severity Reaction Status Date / Time No Known Allergies Allergy Verified 12/05/23 18:05 Review of Systems Constitutional: Constitutional: Denies body ache(s), Denies chills, Denies excessive sweating, Denies fever(s), Denies frequent falls and Denies weakness Cardiovascular: Cardiovascular: Denies chest pain and Denies dyspnea Respiratory: Respiratory: Denies dyspnea Musculoskeletal: Musculoskeletal: Reports arthralgias, Reports joint swelling, Reports limited range of motion, Denies muscle weakness, Denies numbness and Reports stiffness Integumentary/Breasts: Skin/Breast: Denies lesions, Denies erythema and Denies rash Neurologic: Denies frequent falls, Denies numbness and Denies weakness Endocrine: Endocrine: Denies excessive sweating PMFSH Past Medical History Onset Date is defined in the Problem List Problems that require an onset date and time if occurred within 24 hrs of arrival to the ED Aortic Dissection and Rupture; Neurologic impairment; Cardiopulmonary Arrest; Endotracheal Intubation; Insertion or Replacement of Mechanical Circulatory Assist Device Medical History Hypertension Anemia Social History Social History Alcohol intake: never Patient Tobacco Use Status: Never used Tobacco Advance Directives: No Advance Directives Information Provided: No Physical Exam Vital Signs: Vital Signs: Last Vital Signs Temp 96.9 F 12/05/23 18:05 Pulse 73 12/05/23 18:05 Resp 18 12/05/23 18:05 BP 163/75 H 12/05/23 18:05 Pulse Ox 96 12/05/23 18:05 O2 Del Method Room Air 12/05/23 18:05 BMI result Body Mass Index 33.2 Const: General: cooperative, comfortable, no acute distress and well developed Nutritional Appearance: well nourished Orientation/consciousness: patient oriented x3 Limitations: no limitations HEENT: Head: Yes normal to inspection, Yes normocephalic and Yes atraumatic Eyes: Eyelids: Yes eyelids normal Conjunctivae: conjunctivae normal Sclerae: sclerae normal Corneas: corneas normal Resp: Effort & Inspection: normal respiratory effort, able to speak in complete sentences, no audible wheezes and not labored Skin: General skin exam: no rashes or lesions noted and elasticity normal Lesions: no lesions Rashes: no rashes Neuro: General: patient oriented x3 Extrem: Other: Right knee is without erythema, or rash. The right knee is edematous compared to the left knee. No tenderness upon palpation of joint. No calf tenderness Course Course Course Narrative: RME-18:05PM - 78yoF presenting to the ED with complaints of Right knee pain/swelling x 1 week. Denies history of blood clots. Denies CP, SOB. Plan: US of RLE and Xray of Right knee ordered at this time. Patient is sent back to the waiting room to be evaluated in [facility]. Medical Decision Making Medical Decision Making [facility] Narrative: 78 year old female presents for evaluation of right knee pain x 1 month. Physical exam is reassuring, joint is without erythema or rash. Knee is non- tender to palpation. X-ray of the right knee reveals superior advanced degenerative osteoarthritic changes without visible acute fracture or dislocation seen. Venous Duplex US of the right knee is without evidence of DVT. Recommend supportive care with Naproxen and light compressive wraps as tolerated. Patient instructed to follow up with PCP for further recommendations. Differential Diagnosis Osteoarthritis Pseudogout Septic arthritis Fracture Ligamentous injury Independent Interpretation I performed an independent interpretation of an: Plain X-Ray (No obvious fracture) Radiology Impression Discussion of test interpretation with radiology: I have reviewed the radiologist's reading. (As above, advanced osteoarthritis without fracture) Radiologist Impression: Ultrasound of the lower extremity shows no evidence of DVT Discharge Plan Discharge Clinical Impression: Acute pain of right knee, Osteoarthritis Patient Disposition: Home, Self-Care Instructions: Osteoarthritis (ED) Additional Instructions: Your ultrasound was negative for blood clots or DVTs. Your x-ray showed significant arthritis of the right knee which is likely the cause of your pain You may take naproxen twice daily as needed for pain You may try an [id number] knee brace to help when you are walking Follow-up with your primary doctor Return for new or worsening symptoms Prescriptions: No Action carbamazepine [Tegretol] 200 mg tablet 200 mg PO BID Qty: 60 0RF ibuprofen 800 mg tablet 800 mg PO Q8H PRN (Reason: pain) Qty: 14 0RF cyclobenzaprine 10 mg tablet 10 mg PO Q8H Qty: 14 0RF cyclobenzaprine 10 mg tablet 10 mg PO TID PRN (Reason: muscle spasm) Qty: 12 0RF azithromycin 250 mg tablet See Rx Instructions .ROUTE .COMPLEX Qty: 6 0RF Rx Instructions: For 250 mg dose pack: take 500 mg today (day 1), then 250 mg for 4 days (days 2-5) benzonatate 100 mg capsule 100 mg PO TID PRN (Reason: cough) Qty: 14 0RF albuterol sulfate 90 mcg/actuation HFA aerosol inhaler 2 puff inhalation Q4-6H PRN (Reason: shortness of breath or wheezing) Qty: 6.7 0RF prednisone 20 mg tablet 40 mg PO DAILY Qty: 10 0RF
== END 2023-12-05 20:05 | disposition home or self-care (01) ==
PROVIDERS: Emergency Provider Emergency Medicine Emergency Medical Services; PCP Internal Medicine
DX: M79.661 Pain in right lower leg (principal); M17.11 Unilateral primary osteoarthritis, right knee; I10 Essential (primary) hypertension; D64.9 Anemia, unspecified
CPT/HCPCS: 73564; 93971; 99282; 99284

== ENCOUNTER 2024-02-10 10:12 | Outpatient (REF) | payer BC, SELFPAY ==
[2024-02-10 11:17] LABS: Alanine Aminotransferase 17 U/L (0-31); Alkaline Phosphatase 101 U/L (39-117); Anion Gap 12 (12-20); Aspartate Amino Transferase 26 U/L (5-31); Bilirubin Total 0.4 mg/dL (0.0-1.0); Blood Urea Nitrogen 17 mg/dL (9-16); Calcium 9.7 mg/dL (8.4-10.2); Carbon Dioxide 31 mmol/L (22-29); Chloride 105 mmol/L (96-108); Estimated Glomerular Filt Rate > 60; Glucose Random 102 mg/dL (60-115); Potassium 4.3 mmol/L (3.3-5.1); Sodium 144 mmol/L (135-145)
== END 2024-02-10 10:13 | disposition home or self-care (01) ==
LOC: HO.LAB 10:12
PROVIDERS: PCP Internal Medicine; Visit Provider Internal Medicine
DX: E78.00 Pure hypercholesterolemia, unspecified (principal); I10 Essential (primary) hypertension; R73.01 Impaired fasting glucose
CPT/HCPCS: 36415; 80053

== ENCOUNTER 2024-03-03 06:33 | Outpatient (REF) | payer MEDICARE, SELFPAY ==
--- NOTE | ~2024-03-03 | XR_ITS ---
EXAMINATION: XR KNEE, LEFT CLINICAL INFORMATION: Pain in left knee COMPARISON: None available. TECHNIQUE: AP lateral and sunrise views of the left knee. FINDINGS: Advanced changes of osteoarthritis in the left knee joint with loss of joint spaces in the medial and lateral compartment and severe narrowing of patellofemoral compartment with marginal spurring causing patella there is no joint effusion. There is soft tissue calcification seen lateral to the lateral femoral condyle. XR/XR knee LT 3V IMPRESSION: Severe changes of osteoarthritis of left knee joint
== END 2024-03-03 06:34 | disposition home or self-care (01) ==
LOC: HO.HOSX 06:33
PROVIDERS: Visit Provider Orthopaedic Surgery
DX: M17.0 Bilateral primary osteoarthritis of knee (principal)
CPT/HCPCS: 73562

== ENCOUNTER 2024-03-03 10:10 | Outpatient (AMB) | payer BC, SELFPAY ==
[2024-03-03 10:34] VITALS: BMI 33.2
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
== END 2024-03-03 11:17 | disposition home or self-care (01) ==
PROVIDERS: PCP Internal Medicine; Visit Provider Orthopaedic Surgery
DX: M17.0 Bilateral primary osteoarthritis of knee (principal)
CPT/HCPCS: 99203

== ENCOUNTER 2024-04-13 14:26 | Outpatient (AMB) | payer MEDICARE, SELFPAY ==
[2024-04-13 14:33] VITALS: BMI 33.2
--- NOTE | 2024-04-13 14:33 | MHC.OFFVIS ---
Vital Signs 04/13/24 14:33 Height 5 ft Weight 170 lb BMI 33.2 Intake Visit Reasons: INJ- #1 Bilateral knee Euflexxa gel inj Intake Note: Lisbeth is a 78 year old female who presents with complaints of progressively worsening bilateral knee pains. She describes her pains as sharp and severe in nature. Her pains have gotten worse over the last few years in spite of continued non operative treatments. She has had cortisone injections in the past which gave her minimal relief. She has also done physical therapy exercises which aggravated her pain. She has tried Tylenol and ibuprofen which gave him minimal relief. She wishes to hold off on surgery for as long as possible. Allergies No Known Allergies Allergy (Verified 04/13/24 14:34) Medication List - Last Reconciled 04/14/24 by Enzo Hunter MD calcium carbonate-vitamin D3 600 mg-20 mcg (800 unit) (Caltrate with Vitamin D3) 1 tab PO DAILY cyclobenzaprine 10 mg PO TID PRN ibuprofen 800 mg PO Q8H PRN lisinopril 20 mg PO DAILY pravastatin 40 mg PO DAILY prednisone 40 mg (2 x 20 mg) PO DAILY PFSH Medical History Hypertension Anemia Surgical History Hx of cholecystectomy Social History Alcohol intake: never Patient Tobacco Use Status: Never used Tobacco Current occupational status: retired Current occupation: Right hand dominate Physical Exam Vital Signs: BMI result Body Mass Index 33.2 Const Other: Well-nourished well-developed very friendly female awake alert and oriented x3 in no acute distress Extrem Other: Bilateral lower extremity examination shows good capillary refill, no skin lesions noted, normal sensation light touch Bilateral knee examination shows minimal effusions, palpable crepitus with range of motion, pain with range of motion, range of motion from -3 degrees to 115 degrees, no instability Office Procedures Joint Injection/Drain Joint Injection/Drain Primary Site: left knee Prep: site was prepped using aseptic technique Injected: 20 mg of (Euflexxa viscosupplementation) and 1% plain lidocaine Procedure: The patient tolerated the procedure well Coding 44735 - Large joint Procedure code (CPT) selection complete Joint Injection/Drain Joint Injection/Drain Primary Site: right knee Prep: site was prepped using aseptic technique Injected: 20 mg of (Euflexxa viscosupplementation) and 1% plain lidocaine Procedure: The patient tolerated the procedure well Coding 81537 - Large joint Procedure code (CPT) selection complete Results Reviewed Results Reviewed: X-rays of the patient's bilateral knee show joint space narrowing, subchondral sclerosis, no acute bony abnormalities Assessment & Plan Assessment & Plan (1) Osteoarthritis of left knee: Code(s): M17.12 - Unilateral primary osteoarthritis, left knee Category: Medical (2) Osteoarthritis of right knee: Code(s): M17.11 - Unilateral primary osteoarthritis, right knee Category: Medical Plan Ms. Blackman presents with bilateral knee pains due to degenerative joint disease. I had a lengthy discussion with the patient regarding the treatment options. She wishes to hold off on surgery for as long as possible. I agree with this plan. She has had cortisone injections in the past which gave her minimal relief. Thus, the risks and benefits of a series of viscosupplementation injections were discussed at length with the patient. The patient wished to proceed. She tolerated the 1st set of Euflexxa injections well. She will continue with her home exercise program. She will follow up next week as scheduled. Feel free to call me at any time should questions regarding her orthopedic management arise. I spent 20 minutes in reviewing the patient's records and imaging studies, seeing the patient and documenting in the medical record. Orders: Orders AMB Joint Injection/Aspiration 04/13/24 M17.12 - Unilateral primary osteoarthritis, left knee AMB Joint Injection/Aspiration 04/13/24 M17.11 - Unilateral primary osteoarthritis, right knee Coding Level of Care Code Est Pt Level 3 (16993) Diagnoses Osteoarthritis of left knee M17.12 Osteoarthritis of right knee M17.11 CPT Codes Coding - Large joint: 25144 - Large joint ([id number]) Coding - 96028 Large joint: 36691 - Large joint ([id number])
== END 2024-04-13 15:04 | disposition home or self-care (01) ==
PROVIDERS: PCP Internal Medicine; Visit Provider Orthopaedic Surgery
DX: M17.0 Bilateral primary osteoarthritis of knee (principal)
CPT/HCPCS: 20610; 99213

== ENCOUNTER → 2024-04-13 14:26 | Outpatient (BNVA) | payer MEDICARE, SELFPAY | PROVIDERS: PCP Internal Medicine; Visit Provider Orthopaedic Surgery | DX: M17.0 Bilateral primary osteoarthritis of knee (principal) | CPT/HCPCS: 20610; 99212; J7323 ==

== ENCOUNTER 2024-04-20 14:29 | Outpatient (AMB) | payer MEDICARE, SELFPAY ==
--- NOTE | 2024-04-20 14:33 | A.OFFVIS_ITS ---
Intake Visit Reasons: INJ- #2 Bilateral knee Euflexxa gel injectons Intake Note: Lisbeth is a 78 year old female who presents for her Bilateral knee Euflexxa gel injections. She states that she got mild relief from her 1st set of injections last week. She denies any fevers or chills. She continues with her home exe rcise program. Allergies No Known Allergies Allergy (Verified 04/20/24 14:35) Medication List - Last Reconciled 04/21/24 by Enzo Hunter MD calcium carbonate-vitamin D3 600 mg-20 mcg (800 unit) (Caltrate with Vitamin D3) 1 tab PO DAILY cyclobenzaprine 10 mg PO TID PRN lisinopril 20 mg PO DAILY pravastatin 40 mg PO DAILY PFSH Medical History Hypertension Anemia Surgical History Hx of cholecystectomy Social History Alcohol intake: never Patient Tobacco Use Status: Never used Tobacco Current occupational status: retired Current occupation: Right hand dominate Physical Exam Extrem Other: Bilateral knee examination shows minimal effusions, palpable crepitus with range of motion, pain with range of motion, no instability Office Procedures Joint Injection/Drain Joint Injection/Drain Primary Site: left knee Prep: site was prepped using aseptic technique Injected: 20 mg of (Euflexxa viscosupplementation) and 1% plain lidocaine Procedure: The patient tolerated the procedure well Coding 70793 - Large joint Procedure code (CPT) selection complete Joint Injection/Drain Joint Injection/Drain Primary Site: right knee Prep: site was prepped using aseptic technique Injected: 20 mg of (Euflexxa viscosupplementation) and 1% plain lidocaine Procedure: The patient tolerated the procedure well Coding 71260 - Large joint Procedure code (CPT) selection complete Results Reviewed Results Reviewed: X-rays of the patient's bilateral knee show joint space narrowing, subchondral sclerosis, no acute bony abnormalities Assessment & Plan Assessment & Plan (1) Osteoarthritis of left knee: Code(s): M17.12 - Unilateral primary osteoarthritis, left knee Category: Medical (2) Osteoarthritis of right knee: Code(s): M17.11 - Unilateral primary osteoarthritis, right knee Category: Medical Plan Ms. Blackman presents with bilateral knee pains due to degenerative joint disease. The risks and benefits of a 2nd set of Euflexxa injections were discussed at length with the patient. Wished to proceed she tolerated the injections well. She will continue with her home exercise program. She will follow up next week as scheduled. Feel free to call me at any time should questions regarding her orthopedic management arise. I spent 22 minutes in reviewing the patient's records and imaging studies, seeing the patient and documenting in the medical record. Orders: Orders AMB Joint Injection/Aspiration 04/20/24 M17.12 - Unilateral primary osteoarthritis, left knee AMB Joint Injection/Aspiration 04/20/24 M17.11 - Unilateral primary osteoarthritis, right knee Coding Level of Care Code Procedure Only Diagnoses Osteoarthritis of left knee M17.12 Osteoarthritis of right knee M17.11 CPT Codes Coding - 48115 Large joint: 64852 - Large joint ([id number]) Coding - 46787 Large joint: 86677 - Large joint ([id number])
== END 2024-04-20 15:07 | disposition home or self-care (01) ==
PROVIDERS: PCP Internal Medicine; Visit Provider Orthopaedic Surgery
DX: M17.0 Bilateral primary osteoarthritis of knee (principal)
CPT/HCPCS: 20610

== ENCOUNTER → 2024-04-20 14:29 | Outpatient (BNVA) | payer MEDICARE, SELFPAY | PROVIDERS: PCP Internal Medicine; Visit Provider Orthopaedic Surgery | DX: M17.0 Bilateral primary osteoarthritis of knee (principal) | CPT/HCPCS: 20610; J7323 ==

== ENCOUNTER 2024-04-27 14:08 | Outpatient (AMB) | payer MEDICARE, SELFPAY ==
--- NOTE | 2024-04-27 14:10 | MHC.OFFVIS ---
Vital Signs 04/27/24 14:12 Height 5 ft Weight 170 lb BMI 33.2 Intake Visit Reasons: INJ- #3 bilateral knee euflexxa gel inj Intake Note: Lisbeth is a 78 year old female who presents today for her #3 Bilateral knee Euflexxa gel injections. She states that she has gotten mild relief from her prior 2 injections. She denies any fevers or chills. She continues with her home exercise program. Allergies No Known Allergies Allergy (Verified 04/27/24 14:12) Medication List - Last Reconciled 04/28/24 by Enzo Hunter MD calcium carbonate-vitamin D3 600 mg-20 mcg (800 unit) (Caltrate with Vitamin D3) 1 tab PO DAILY cyclobenzaprine 10 mg PO TID PRN lisinopril 20 mg PO DAILY pravastatin 40 mg PO DAILY PFSH Medical History Hypertension Anemia Surgical History Hx of cholecystectomy Social History Alcohol intake: never Patient Tobacco Use Status: Never used Tobacco Current occupational status: retired Current occupation: Right hand dominate Physical Exam Vital Signs: BMI result Body Mass Index 33.2 Const Other: Well-nourished well-developed very friendly female awake alert and oriented x3 in no acute distress Extrem Other: Bilateral knee examination shows minimal effusions, palpable crepitus with range of motion, pain with range of motion, no instability Office Procedures Joint Injection/Drain Joint Injection/Drain Primary Site: left knee Prep: site was prepped using aseptic technique Injected: 20 mg of (Euflexxa viscosupplementation) and 1% plain lidocaine Procedure: The patient tolerated the procedure well Coding 81515 - Large joint Procedure code (CPT) selection complete Joint Injection/Drain Joint Injection/Drain Primary Site: right knee Prep: site was prepped using aseptic technique Injected: 20 mg of (Euflexxa viscosupplementation) and 1% plain lidocaine Procedure: The patient tolerated the procedure well Coding 39755 - Large joint Procedure code (CPT) selection complete Results Reviewed Results Reviewed: X-rays of the patient's bilateral knee show joint space narrowing, subchondral sclerosis, no acute bony abnormalities Assessment & Plan Assessment & Plan (1) Osteoarthritis of left knee: Code(s): M17.12 - Unilateral primary osteoarthritis, left knee Category: Medical (2) Osteoarthritis of right knee: Code(s): M17.11 - Unilateral primary osteoarthritis, right knee Category: Medical Plan Ms. Blackman presents with bilateral knee pains due to degenerative joint disease. The risks and benefits of a 3rd set of Euflexxa injections were discussed at length with the patient. The patient wished to proceed. She tolerated the injections well. She will continue with her activity modifications. She will follow up with me on an as-needed basis should her symptoms not plateau at an unacceptable level over the next few months. Feel free to call me at any time should questions regarding her orthopedic management arise. Orders: Orders AMB Joint Injection/Aspiration 04/27/24 M17.12 - Unilateral primary osteoarthritis, left knee AMB Joint Injection/Aspiration 04/27/24 M17.11 - Unilateral primary osteoarthritis, right knee Coding Level of Care Code Procedure Only Diagnoses Osteoarthritis of left knee M17.12 Osteoarthritis of right knee M17.11 CPT Codes Coding - 28010 Large joint: 42870 - Large joint ([id number]) Coding - 77270 Large joint: 43124 - Large joint ([id number])
[2024-04-27 14:12] VITALS: BMI 33.2
== END 2024-04-27 14:36 | disposition home or self-care (01) ==
PROVIDERS: PCP Internal Medicine; Visit Provider Orthopaedic Surgery
DX: M17.0 Bilateral primary osteoarthritis of knee (principal)
CPT/HCPCS: 20610

== ENCOUNTER → 2024-04-27 14:08 | Outpatient (BNVA) | payer MEDICARE, SELFPAY | PROVIDERS: PCP Internal Medicine; Visit Provider Orthopaedic Surgery | DX: M17.0 Bilateral primary osteoarthritis of knee (principal); Z79.899 Other long term (current) drug therapy | CPT/HCPCS: 20610; J7323 ==

== ENCOUNTER 2024-08-16 14:45 | Emergency (ER) | payer MEDICARE, SELFPAY ==
--- NOTE | ~2024-08-16 | CT_ITS ---
EXAMINATION: CT ABDOMEN AND PELVIS WITHOUT CONTRAST CLINICAL INFORMATION: Left flank pain COMPARISON: CT angiogram abdomen 10/03/2023 TECHNIQUE: Multidetector volumetric imaging was performed from the superior aspect of the liver through the pubic symphysis. Sagittal and coronal reformatted images were obtained on the technologist's workstation. This CT examination was performed using dose optimization techniques as appropriate, variously including the following: *Automated exposure control *Adjustment of mA and/or kV according to patient size (this includes techniques or standardized protocols for targeted exams where dose is matched to indication/reason for exam; i.e. extremities or head) *Use of iterative reconstruction technique DLP: 550 mGy-cm FINDINGS: LUNG BASES: The visualized lung bases are unremarkable. LIVER, GALLBLADDER, AND BILIARY TREE: The liver is normal in size, shape, and attenuation. No focal hepatic lesion or biliary ductal dilatation is present. Status post cholecystectomy PANCREAS: Unremarkable. SPLEEN: Unremarkable. ADRENAL GLANDS: Unremarkable. KIDNEYS AND URETERS: The kidneys are normal in size, shape, and attenuation. No hydronephrosis, hydroureter, or calculi seen. No perinephric stranding. Multiple bilateral benign Bosniak class I renal cysts are noted predominantly parapelvic which require no additional imaging or follow-up. No solid renal masses are seen. BLADDER: Unremarkable. GASTROINTESTINAL TRACT: A large hiatal hernia is again seen. The small and large bowel are unremarkable aside from colonic diverticulosis without diverticulitis most prominent in the sigmoid. The appendix is unremarkable. ABDOMINAL WALL: No significant hernia is appreciated. LYMPH NODES: No retroperitoneal lymphadenopathy. VASCULAR: Calcific atherosclerotic changes are present in the aorta and iliac vessels. There is no evidence of an abdominal aortic aneurysm. PELVIC VISCERA: The uterus and adnexa are unremarkable. No free fluid. OSSEOUS STRUCTURES: Mild degenerative changes in the lower thoracic spine. Minimal grade 1 anterolisthesis of L4 upon L5. No bony destructive lesions CT/CT abdomen pelvis wo IV con IMPRESSION: 1. A cause for the patient's left flank pain has not been found. 2. Cholecystectomy. 3. Large hiatal hernia. 4. Colonic diverticulosis without diverticulitis. 5. Mild degenerative changes in the spine. Fleischner guidelines were followed. Electronically signed by: Feliz Valdez MD 08/16/2024 05:31 PM EDT
[2024-08-16 15:32] VITALS: BP 176/74; PULSE 67; RESP 16; TEMP 35.9; O2SAT 98; BMI 34.9
--- NOTE | 2024-08-16 15:32 | ED_ITS ---
HPI - General Adult General Stated complaint: L flank pain Related Data Home Medications ?Medication ?Instructions ?Recorded ?Confirmed calcium carbonate 600 mg-vitamin 1 tab PO DAILY 03/03/24 04/28/24 D3 20 mcg (800 unit) tablet (Caltrate with Vitamin D3) lisinopril 20 mg tablet 20 mg PO DAILY 03/03/24 04/28/24 pravastatin 40 mg tablet 40 mg PO DAILY 03/03/24 04/28/24 Previous Rx's ?Medication ?Instructions ?Recorded cyclobenzaprine 10 mg tablet 10 mg PO TID PRN muscle spasm #12 10/03/23 tabs Allergies Allergy/AdvReac Type Severity Reaction Status Date / Time No Known Allergies Allergy Verified 04/27/24 14:12 PMFSH Past Medical History Medical History Hypertension Anemia Surgical History Hx of cholecystectomy Social History Social History Alcohol intake: never Patient Tobacco Use Status: Never used Tobacco Current occupational status: retired Current occupation: Right hand dominate Course Course Course Narrative: RME, this is a rapid medical exam performed by [facility] please refer to primary provider for complete H&P- 79-year-old female presents for evaluation of left flank pain for the last week. She reports that her pain was worse last night and branching from sleeping. Her pain does not radiate, denies any GI or complaints. Plan for labs, urinalysis, CT scan of the abdomen pelvis to evaluate for obstructive uropathy Discharge Plan Discharge Prescriptions: No Action cyclobenzaprine 10 mg tablet 10 mg PO TID PRN (Reason: muscle spasm) Qty: 12 0RF lisinopril 20 mg tablet 20 mg PO DAILY calcium carbonate-vitamin D3 [Caltrate with Vitamin D3] 600 mg-20 mcg (800 unit) tablet 1 tab PO DAILY pravastatin 40 mg tablet 40 mg PO DAILY Print Language: Mosotho
[2024-08-16 15:44] LABS: MANUAL DIFF FLAG NO
[2024-08-16 15:48] LABS: Basophils Percent Auto 0.4 % (0-2); Eosinophils Absolute Auto 0.1 X10*3/uL (0.0-0.4); Eosinophils Percent Auto 1.4 % (0-4); Hematocrit 35.1 % (37.0-47.0); Hemoglobin 11.6 g/dl (12.0-16.0); Imm Gran Abs Auto 0.02 X10*3/uL (0.00-0.03); Imm Gran Pct Auto 0.3 % (0.0-0.4); Lymphocytes Absolute Auto 2.1 X10*3/uL (1.2-4.9); Lymphocytes Percent Auto 27.2 % (20-40); Mean Corpuscular Hemoglobin 30.1 pg (27.0-33.0); Mean Corpuscular Volume 91.2 fL (80.0-98.0); Mean Platelet Volume 9.5 fL (9.4-12.3); Monocytes Absolute Auto 0.6 X10*3/uL (0.1-1.2); Monocytes Percent Auto 7.3 % (2-11); Neutrophils Absolute Auto 4.9 x10*3/uL (2.0-8.3); Neutrophils Percent Auto 63.4 % (45-73); Platelet Count 225 X10*3/uL (160-400); Red Blood Count 3.85 X10*6/uL (4.20-5.50); Red Cell Distribution Width 14.5 % (11.0-16.0); White Blood Count 7.7 X10*3/uL (4.8-10.8)
[2024-08-16 15:58] LABS: Anion Gap 13 (12-20); Blood Urea Nitrogen 18 mg/dL (9-16); Calcium 9.5 mg/dL (8.4-10.2); Carbon Dioxide 27 mmol/L (22-29); Chloride 107 mmol/L (96-108); Estimated Glomerular Filt Rate > 60; Glucose Random 95 mg/dL (60-115); Sodium 143 mmol/L (135-145)
--- NOTE | 2024-08-16 21:41 | ED_ITS ---
HPI - Back Pain/Injury General Chief Complaint: Back Pain/Injury Stated Complaint: L flank pain Time Seen by Provider: 08/16/24 21:33 Source: patient Mode of arrival: ambulatory Limitations: no limitations History of Present Illness ED Provider: bridger BRAR Narrative: Patient is 79 years old with no history of kidney stone does have history of arthritis and hypertension noticed pain in the left flank area for last 1 week got worse last night pain gets worse on movement no radiation of pain to the abdomen no nausea no vomiting no urinary symptoms no hematuria no fever or chills no rash Related Data Home Medications ?Medication ?Instructions ?Recorded ?Confirmed calcium carbonate 600 mg-vitamin 1 tab PO DAILY 03/03/24 04/28/24 D3 20 mcg (800 unit) tablet (Caltrate with Vitamin D3) lisinopril 20 mg tablet 20 mg PO DAILY 03/03/24 04/28/24 pravastatin 40 mg tablet 40 mg PO DAILY 03/03/24 04/28/24 Previous Rx's ?Medication ?Instructions ?Recorded cyclobenzaprine 10 mg tablet 10 mg PO TID PRN muscle spasm #12 10/03/23 tabs oxycodone 5 mg tablet 5 mg PO Q6H PRN pain #20 tabs 08/16/24 Allergies Allergy/AdvReac Type Severity Reaction Status Date / Time No Known Allergies Allergy Verified 08/16/24 15:34 Review of Systems 2 Review of Systems: Yes all other systems are reviewed and are negative PMFSH Past Medical History Medical History Hypertension Anemia Surgical History Hx of cholecystectomy Social History Social History Alcohol intake: never Patient Tobacco Use Status: Never used Tobacco Smoked in Last 30 Days: No Use of substances other than those prescribed or required for medical reasons: No Advance Directives: No Advance Directives Information Provided: No Current occupational status: retired Current occupation: Right hand dominate Physical Exam 2 Vital Signs: Vital Signs: Last Vital Signs Temp 97.8 F 08/16/24 23:30 Pulse 72 08/16/24 23:30 Resp 16 08/16/24 23:30 BP 184/98 H 08/16/24 23:30 Pulse Ox 95 09/30/24 23:30 O2 Del Method Room Air 08/16/24 23:30 BMI result Body Mass Index 34.9 Appearance: Alert. Oriented X3. No acute distress. Eyes: No pallor or icterus ENT: Pharynx normal. Oral Mucosa moist Neck: Normal inspection. Neck supple. CVS: Normal heart rate and rhythm. Pulses normal. Respiratory: No respiratory distress. Equal air entry bilateral, no wheezing/rales/rhonchi Abdomen: Soft and nontender. Bowel sounds are present, no mass palpable, tenderness left flank area no spinal tenderness Skin: Skin warm and dry. Normal skin color. Normal skin turgor. No rash in the back Extremities: No lower extremity edema. No calf tenderness Neuro: Oriented X 3. No motor deficit. No sensory deficit.No cerebellar signs , cranial nerves II-XII intact Medications Administered Discontinued Medications Generic Name Dose Route Start Last Admin Trade Name Freq PRN Reason Stop Dose Admin Oxycodone HCl 10 mg 08/16/24 21:50 08/16/24 22:05 Oxycodone Hcl Immed Release 5 Mg Tablet PO 08/16/24 21:51 10 mg ONCE ONE Administration Medical Decision Making Medical Decision Making [facility] Narrative: Patient with nonspecific left flank pain CT scan is negative for acute urine also negative no rash noticed likely musculoskeletal Differential Diagnosis Differential Diagnoses: The differential diagnosis associated with the presentation includes Pyelonephritis/kidney stone/musculoskeletal pain/shingles Lab Data [facility] Lab Attestation statement: I reviewed the patient's lab results. 08/16/24 15:41 08/16/24 15:41 Labs: Lab Results 08/16/24 08/16/24 Range/Units 15:41 21:52 WBC 7.7 (4.8-10.8) X10*3/uL RBC 3.85 L (4.20-5.50) X10*6/uL Hgb 11.6 L (12.0-16.0) g/dl Hct 35.1 L (37.0-47.0) % MCV 91.2 (80.0-98.0) fL MCH 30.1 (27.0-33.0) pg MCHC 33.0 (31.0-35.0) g/dl RDW 14.5 (11.0-16.0) % Plt Count 225 (160-400) X10*3/uL MPV 9.5 (9.4-12.3) fL Immature Gran % (Auto) 0.3 (0.0-0.4) % Neut % (Auto) 63.4 (45-73) % Lymph % (Auto) 27.2 (20-40) % [place] % (Auto) 7.3 (2-11) % Eos % (Auto) 1.4 (0-4) % Baso % (Auto) 0.4 (0-2) % Lymph # (Auto) 2.1 (1.2-4.9) X10*3/uL [place] # (Auto) 0.6 (0.1-1.2) X10*3/uL Eos # (Auto) 0.1 (0.0-0.4) X10*3/uL Baso # (Auto) 0.0 (0.0-0.2) X10*3/uL Abs Immat Gran (auto) 0.02 (0.00-0.03) X10*3/uL Absolute Neuts (auto) 4.9 (2.0-8.3) x10*3/uL Absolute Nucleated RBC 0.000 (0.0-0.012) X10*3/uL Nucleated RBC % (auto) 0.0 (0.0-0.2) /100WBC Sodium 143 (135-145) mmol/L Potassium 4.0 (3.3-5.1) mmol/L Chloride 107 (96-108) mmol/L Carbon Dioxide 27 (22-29) mmol/L Anion Gap 13 (12-20) BUN 18 H (9-16) mg/dL Creatinine 0.81 (0.5-1.4) mg/dL Estim Creat Clear Calc 53.0 Estimated GFR > 60 Random Glucose 95 (60-115) mg/dL Calcium 9.5 (8.4-10.2) mg/dL Urine Color Yellow Urine Appearance Clear Urine pH 5.5 (5.0-9.0) Ur Specific [place] 1.020 (1.005-1.025) Urine Protein Trace (Neg-Trace) mg/dL Urine Glucose (UA) Negative (Negative) mg/dL Urine Ketones 15 (Negative) mg/dL Urine Blood Negative (Negative) Urine Nitrite Negative (Negative) Ur Leukocyte Esterase Trace H (Negative) Urine RBC 0-2 (0-2) /HPF Urine WBC 0-5 (0-5) /HPF Ur Squamous Epith Cells 0-2 (0-2) /HPF Urine Bacteria None Seen (None Seen) Hyaline Casts 0-2 (0-2) /LPF Independent Interpretation I performed an independent interpretation of an: CT Scan Radiology Impression Discussion of test interpretation with radiology: I have reviewed the radiologist's reading. Radiologist Impression: [address] [address] [address] Scan Report Signed Patient: Lisbeth Blackman MR#: [id number] : 1945 Acct:[id number] Age/Sex: 79 / F ADM Date: 08/16/24 Loc: .ED Attending Dr: Ordering Physician: Jameson Ayala Date of Service: 08/16/24 Procedure(s): CT abdomen pelvis wo IV con Accession Number(s): [id number] cc: Nadia Lam MD; Jameson Ayala~ EXAMINATION: CT ABDOMEN AND PELVIS WITHOUT CONTRAST CLINICAL INFORMATION: Left flank pain COMPARISON: CT angiogram abdomen 10/03/2023 TECHNIQUE: Multidetector volumetric imaging was performed from the superior aspect of the liver through the pubic symphysis. Sagittal and coronal reformatted images were obtained on the technologist's workstation. This CT examination was performed using dose optimization techniques as appropriate, variously including the following: *Automated exposure control *Adjustment of mA and/or kV according to patient size (this includes techniques or standardized protocols for targeted exams where dose is matched to indication/reason for exam; i.e. extremities or head) *Use of iterative reconstruction technique DLP: 550 mGy-cm FINDINGS: LUNG BASES: The visualized lung bases are unremarkable. LIVER, GALLBLADDER, AND BILIARY TREE: The liver is normal in size, shape, and attenuation. No focal hepatic lesion or biliary ductal dilatation is present. Status post cholecystectomy PANCREAS: Unremarkable. SPLEEN: Unremarkable. ADRENAL GLANDS: Unremarkable. KIDNEYS AND URETERS: The kidneys are normal in size, shape, and attenuation. No hydronephrosis, hydroureter, or calculi seen. No perinephric stranding. Multiple bilateral benign Bosniak class I renal cysts are noted predominantly parapelvic which require no additional imaging or follow-up. No solid renal masses are seen. BLADDER: Unremarkable. GASTROINTESTINAL TRACT: A large hiatal hernia is again seen. The small and large bowel are unremarkable aside from colonic diverticulosis without diverticulitis most prominent in the sigmoid. The appendix is unremarkable. ABDOMINAL WALL: No significant hernia is appreciated. LYMPH NODES: No retroperitoneal lymphadenopathy. VASCULAR: Calcific atherosclerotic changes are present in the aorta and iliac vessels. There is no evidence of an abdominal aortic aneurysm. PELVIC VISCERA: The uterus and adnexa are unremarkable. No free fluid. OSSEOUS STRUCTURES: Mild degenerative changes in the lower thoracic spine. Minimal grade 1 anterolisthesis of L4 upon L5. No bony destructive lesions CT/CT abdomen pelvis wo IV con IMPRESSION: 1. A cause for the patient's left flank pain has not been found. 2. Cholecystectomy. 3. Large hiatal hernia. 4. Colonic diverticulosis without diverticulitis. 5. Mild degenerative changes in the spine. Fleischner guidelines were followed. Electronically signed by: Feliz Valdez MD 08/16/2024 05:31 PM EDT RP Discharge Plan Discharge Clinical Impression: Strain of lumbar region Patient Disposition: Home, Self-Care Instructions: Low Back Strain (ED) Additional Instructions: Take pain medication as prescribed Your CT scan is negative for kidney stone Cause of your back pain is likely from arthritis Take Tylenol for pain and for severe pain take oxycodone as prescribed Prescriptions: New oxycodone 5 mg tablet 5 mg PO Q6H PRN (Reason: pain) Qty: 20 0RF Rx Instructions: Partial Fill upon patient request. No Action cyclobenzaprine 10 mg tablet 10 mg PO TID PRN (Reason: muscle spasm) Qty: 12 0RF lisinopril 20 mg tablet 20 mg PO DAILY calcium carbonate-vitamin D3 [Caltrate with Vitamin D3] 600 mg-20 mcg (800 unit) tablet 1 tab PO DAILY pravastatin 40 mg tablet 40 mg PO DAILY Interventions: ED Discharge Assessment Last Done: 08/16/24 23:30 Discharge Date/Time: 08/16/24 23:32 Print Language: Bengali
[2024-08-16 21:51] VITALS: BP 184/98; PULSE 72; RESP 16; TEMP 36.6; O2SAT 95
[2024-08-16 22:02] LABS: Appearance Urine Clear; Color Urine Yellow; Glucose Urine UA Negative (Negative); Leukocyte Esterase Urine Trace (Negative); Nitrite Urine Negative (Negative); PH 5.5 (5.0-9.0); UMIC TRIGGER UACC YES; Urine Blood Negative (Negative); Urine Ketones 15 mg/dL (Negative); Urine Protein Trace mg/dL (Neg-Trace)
[2024-08-16 22:04] LABS: Bacteria Urine None Seen (None Seen); Hyaline Casts Urine 0-2 /LPF (0-2); RBC Urine 0-2 /HPF (0-2); Squamous Epithelial Cell Urine 0-2 /HPF (0-2); WBC Urine 0-5 /HPF (0-5)
[2024-08-16] MEDS: oxyCODONE HCl Immed Release 5 MG TABLET 10 MG PO (22:05)
[2024-08-16 22:06] VITALS: PULSE 72; RESP 16; TEMP 36.6; O2SAT 95
[2024-08-16 23:30] VITALS: BP 184/98; PULSE 72; RESP 16; TEMP 36.6; O2SAT 95
== END 2024-08-16 23:32 | disposition home or self-care (01) ==
PROVIDERS: Physician Assistant; Emergency Provider Internal Medicine; PCP Internal Medicine
DX: S39.012A Strain of muscle, fascia and tendon of lower back, initial encounter (principal); X58.XXXA Exposure to other specified factors, initial encounter; I10 Essential (primary) hypertension; D64.9 Anemia, unspecified; Y93.9 Activity, unspecified; Y92.9 Unspecified place or not applicable; Y99.9 Unspecified external cause status; Z79.899 Other long term (current) drug therapy
CPT/HCPCS: 36415; 74176; 80048; 81001; 85025; 99284

== ENCOUNTER 2024-08-20 09:18 | Outpatient (REF) | payer MEDICARE, SELFPAY ==
[2024-08-20 09:34] LABS: MANUAL DIFF FLAG NO
[2024-08-20 11:07] LABS: Basophils Percent Auto 0.6 % (0-2); Eosinophils Absolute Auto 0.2 X10*3/uL (0.0-0.4); Eosinophils Percent Auto 2.5 % (0-4); Hematocrit 34.6 % (37.0-47.0); Hemoglobin 11.1 g/dl (12.0-16.0); Imm Gran Abs Auto 0.02 X10*3/uL (0.00-0.03); Imm Gran Pct Auto 0.3 % (0.0-0.4); Lymphocytes Absolute Auto 2.3 X10*3/uL (1.2-4.9); Lymphocytes Percent Auto 32.1 % (20-40); Mean Corpuscular HGB Conc 32.1 g/dl (31.0-35.0); Mean Corpuscular Hemoglobin 29.8 pg (27.0-33.0); Mean Platelet Volume 10.5 fL (9.4-12.3); Monocytes Absolute Auto 0.6 X10*3/uL (0.1-1.2); Monocytes Percent Auto 8.3 % (2-11); Neutrophils Absolute Auto 4.1 x10*3/uL (2.0-8.3); Neutrophils Percent Auto 56.2 % (45-73); Platelet Count 232 X10*3/uL (160-400); Red Blood Count 3.72 X10*6/uL (4.20-5.50); Red Cell Distribution Width 14.5 % (11.0-16.0); White Blood Count 7.2 X10*3/uL (4.8-10.8)
[2024-08-20 11:41] LABS: Alanine Aminotransferase 19 U/L (0-31); Albumin Level 3.8 g/dL (3.5-5.0); Alkaline Phosphatase 87 U/L (39-117); Anion Gap 11 (12-20); Aspartate Amino Transferase 25 U/L (5-31); Bilirubin Total 0.4 mg/dL (0.0-1.0); Blood Urea Nitrogen 18 mg/dL (9-16); Calcium 9.2 mg/dL (8.4-10.2); Carbon Dioxide 28 mmol/L (22-29); Chloride 107 mmol/L (96-108); Cholesterol 156 mg/dL (<200); Estimated Glomerular Filt Rate > 60; Glucose Random 96 mg/dL (60-115); HDL Cholesterol 79 mg/dL (>40); LDL Cholesterol Calculated 63 mg/dL (<100); Potassium 3.9 mmol/L (3.3-5.1); Sodium 142 mmol/L (135-145); Total Protein 6.6 g/dL (6.5-8.0); Triglycerides 71 mg/dL (<150)
== END 2024-08-20 09:19 | disposition home or self-care (01) ==
LOC: HO.LAB 09:18
PROVIDERS: PCP Internal Medicine; Visit Provider Internal Medicine
DX: E78.00 Pure hypercholesterolemia, unspecified (principal); I10 Essential (primary) hypertension; M17.11 Unilateral primary osteoarthritis, right knee
CPT/HCPCS: 36415; 80053; 80061; 85025

== ENCOUNTER 2024-09-27 10:29 | Outpatient (AMB) | payer MEDICARE, SELFPAY ==
--- NOTE | 2024-09-27 10:32 | A.OFFVIS_ITS ---
Vital Signs 09/27/24 10:35 Height 5 ft Weight 181 lb BMI 35.3 BP 132/82 Intake Visit Reasons: PMB/Referral Intake Note: Per patient last mammo and pap smear 14 or so years ago in [place], all normal. Allergies No Known Allergies Allergy (Verified 09/27/24 10:34) HPI Comments Details: Presenting referred from the emergency room for multiple episodes of vaginal bleeding since July. No history of abnormal Pap smear no other associated symptoms. PFSH Medical History Hypertension Anemia Surgical History Hx of cholecystectomy Social History Alcohol intake: never Patient Tobacco Use Status: Never used Tobacco Current occupational status: retired Current occupation: Right hand dominate Female Reproductive History Menstrual Total pregnancies: 6 Full term: 5 Ab induced: 1 Review of Systems Const All systems reviewed & are unremarkable except as noted in HPI and below Physical Exam Vital Signs: Last Vital Signs BP 132/82 09/27/24 10:35 BMI result Body Mass Index 35.3 General: Yes no CVA tenderness External Female Exam: normal external appearance and normal appearance of the urethra Speculum Exam - Vagina: normal appearance of the vagina, normal palpation, no lesions and no masses Speculum Exam - Cervix: normal appearance of the cervix, normal palpation, no lesions, no masses and nontender Bimanual exam- vagina & uterus: normal bimanual exam, normal palpation, uterine size normal, normal palpation, uterine shape normal, No Cervical tenderness present and non-tender Bimanual Exam- Adnexa, other: normal adnexae Back/Spine/Pelvis Back: no CVA tenderness Assessment & Plan Assessment & Plan (1) Postmenopausal bleeding: Code(s): N95.0 - Postmenopausal bleeding Category: Medical Plan: Discussed with the patient the differential diagnosis of post menopausal bleeding with normal pelvic exam including but not limited to, endometrial hyperplasia, cancer, polyps and other causes; co testing done, recommended ultrasound to evaluate the endometrial stripe; discussed with the patient that if the endometrial thickness is 4 mm or less the negative predictive value of endometrial pathology is 99%, depending on the finding of endometrial stripe by ultrasound will proceed with endometrial sampling versus hysteroscopy D&C polypectomy depending on the ultrasound findings. Instructed the patient to schedule an ultrasound with a follow-up appointment in 2 weeks. All questions answered, the patient verbalized understanding and agreed with the plan. This note was generated with a voice recognition program. Some errors may have been overlooked during the review of this note. Sometimes these errors may affect the content or meaning of a given sentence. Orders: Orders US pelvic and transvaginal Today N95.0 - Postmenopausal bleeding Coding Level of Care Code New Pt Level 3 (18723) Diagnoses Postmenopausal bleeding N95.0
[2024-09-27 10:35] VITALS: BP 132/82; BMI 35.3
== END 2024-09-27 11:06 | disposition home or self-care (01) ==
PROVIDERS: PCP Internal Medicine; Visit Provider Obstetrics & Gynecology
DX: N95.0 Postmenopausal bleeding (principal)
CPT/HCPCS: 99203

== ENCOUNTER 2024-09-27 10:29 | Outpatient (REF) | payer MEDICARE, SELFPAY ==
[2024-09-28 10:52] LABS: HPV 16,18/45 See PAP report
== END 2024-09-27 10:30 | disposition home or self-care (01) ==
LOC: HO.LNP 10:29
PROVIDERS: PCP Internal Medicine; Visit Provider Obstetrics & Gynecology
DX: N95.0 Postmenopausal bleeding (principal)
CPT/HCPCS: 87624; 88175; 99202

== ENCOUNTER 2024-09-28 13:20 | Outpatient (AMB) | payer MEDICARE, SELFPAY ==
--- NOTE | 2024-09-28 13:49 | A.OFFVIS_ITS ---
Vital Signs 09/28/24 13:54 Height 5 ft Weight 181 lb BMI 35.3 Intake Visit Reasons: Bilateral knee pains Intake Note: Lisbeth is a 79 year old female who presents with complaints of progressively worsening bilateral knee pains. The patient describes her pains as sharp in nature. She has had cortisone injections in the past which gave her no relief. She has also had Euflexxa viscosupplementation injections given into both of her knees earlier this year. She got very good relief from those injections initially. She has tried Tylenol and anti-inflammatory medicines which gave her minimal relief. She has failed the last 3 months of conservative treatment which have included a home exercise program, topical creams, Tylenol and anti- inflammatory medicines. At this point her bilateral knee pains are interfering with her activities of daily living and her ability to sleep well through the night. She wishes to hold off on surgery if at all possible. Allergies No Known Allergies Allergy (Verified 09/27/24 10:34) Medication List - Last Reconciled 09/28/24 by Enzo Hunter MD calcium carbonate-vitamin D3 600 mg-20 mcg (800 unit) (Caltrate with Vitamin D3) 1 tab PO DAILY lisinopril 20 mg PO DAILY oxycodone 5 mg PO Q6H PRN PFSH Medical History Hypertension Anemia Surgical History Hx of cholecystectomy Social History (Updated 09/28/24 @ 13:55 by NICKO Multani) Alcohol intake: never Patient Tobacco Use Status: Never used Tobacco Current occupational status: retired Current occupation: Right hand dominant Physical Exam Vital Signs: BMI result Body Mass Index 35.3 Const Other: Well-nourished well-developed very friendly female awake alert and oriented x3 in no acute distress Extrem Other: Bilateral lower extremity examination shows good capillary refill, no skin lesions noted, normal sensation light touch Bilateral knee examination shows minimal effusions, palpable crepitus with range of motion, pain with range of motion, range of motion from minus degrees to 115 degrees, no instability Results Reviewed Results Reviewed: X-rays of the patient's bilateral knees taken previously show joint space narrowing, subchondral sclerosis, no acute bony abnormalities Assessment & Plan Assessment & Plan (1) Osteoarthritis of right knee: Code(s): M17.11 - Unilateral primary osteoarthritis, right knee Category: Medical (2) Osteoarthritis of left knee: Code(s): M17.12 - Unilateral primary osteoarthritis, left knee Category: Medical Plan Ms. Blackman presents with bilateral knee pains due to osteoarthritis. I had a lengthy discussion with the patient regarding the treatment options. She wishes to hold off on surgery for as long as possible. I agree with this plan. She has not gotten good relief from cortisone injections in the past. Thus, I will see whether or not the patient's insurance company will cover a another series of Euflexxa viscosupplementation injections for both of her knees. I will see her back once the injections are available. Feel free to call me at any time should questions regarding her orthopedic management arise. I spent 21 minutes in reviewing the patient's records and imaging studies, seeing the patient and documenting in the medical record. Coding Level of Care Code Est Pt Level 3 (40420) Complex EM visit Add On G2211 Diagnoses Osteoarthritis of right knee M17.11 Osteoarthritis of left knee M17.12
[2024-09-28 13:54] VITALS: BMI 35.3
== END 2024-09-28 14:07 | disposition home or self-care (01) ==
PROVIDERS: PCP Internal Medicine; Visit Provider Orthopaedic Surgery
DX: M17.0 Bilateral primary osteoarthritis of knee (principal)
CPT/HCPCS: 99213; G2211

== ENCOUNTER → 2024-09-28 13:20 | Outpatient (BNVA) | payer MEDICARE, SELFPAY | PROVIDERS: PCP Internal Medicine; Visit Provider Orthopaedic Surgery | DX: M17.0 Bilateral primary osteoarthritis of knee (principal) | CPT/HCPCS: 99212 ==

== ENCOUNTER 2024-10-01 10:52 | Outpatient (REF) | payer MEDICARE, SELFPAY | END 2024-10-01 10:53 | disposition home or self-care (01) | LOC: HO.US 10:52 | PROVIDERS: PCP Internal Medicine; Visit Provider Obstetrics & Gynecology | DX: N95.0 Postmenopausal bleeding (principal) | CPT/HCPCS: 76830; 76856 ==

== ENCOUNTER 2024-11-03 12:48 | Outpatient (AMB) | payer MEDICARE, SELFPAY ==
--- OUTSIDE RECORDS SUMMARY | 2024-11-03 12:53 | XMS_ITS ---
Author Organization [facility], Address [address] [facility] [place] [address] Care Team Providers Care Front Desk Coordinator Name Role Phone Flakita Lott [facility] [phone] ALLERGIES, ADVERSE REACTIONS, ALERTS None MEDICATIONS Medication Code Code System Start Date Stop Date Route Dosage Directions Fill Instructions lisinopril RxNorm 11/12/20 23 1 azithromycin 835145 RxNorm 4 oral 1 prednisone 726700 RxNorm 4 oral 3 amoxicillin-pot clavulanate 654343 RxNorm 4 oral 1 Caltrate with Vitamin D3 RxNorm 11/12/20 23 1 pravastatin sodium RxNorm 11/12/20 23 1 PROBLEMS Problem Name Code Code System Start Date End Date Stat us Essential (primary) hypertension 57573468 [facility] Active Other hyperlipidemia 8672743 [facility] Active Other specified arthritis, unspecified site 6990336 [facility] Active Other asthma 081160583 [facility] Active Acute pharyngitis, unspecified 674009915 [facility] 03/26/2024 Active Acute cough 94473716 [facility] 03/26/2024 Active Pneumonia, unspecified organism 319467070 [facility] 4 Active ENCOUNTERS Encounter Diagnosis Code Code System Date Stat us Other asthma 913852182 [facility] 03/31/2024 Active Pneumonia, unspecified organism 229086455 [facility] 03/31 Active IMMUNIZATIONS * None VITAL SIGNS Code Code System Vitals Name Date Value and Un its 8462-4 [facility] Blood Pressure-Diastolic 03/31/2024 84 mmHg 8480-6 [facility] Blood Pressure-Systolic 03/31/2024 1 44 mmHg 8867-4 [facility] Heart Rate 03/31/2024 77 /min 9279-1 [facility] Respiratory Rate 03/31/2024 19 /min 8310-5 [facility] Body Temperature 03/31/2024 97.1 F 87088-8 [facility] Oxygen Saturation 03/31/2024 94 % SOCIAL HISTORY * None PROCEDURES Code Code System Procedure Date Status Notes 76683 [facility]4 Administer Nebul izer Treatment 03/31/2024 completed Abram Montgomeryill - 03/31/2024 Therapeutic nebulizer therapy (treatment of airway obstruction).Pulse: 77/min. O2 Saturation: 94%.Nebulizer session 1: Medication: Albuterol and Ipratropium, 1 unit dose (3mL of 0.5mg and 3.0mg/3mL solution), expiration date: 09/16/2025, tap dancer lot #: [id number], NDC #: [id number].Patient was observed for 10 minutes.Nebulizer session 2: Medication: Albuterol and Ipratropium, 1 unit dose (3mL of 0.5mg and 3.0mg/3mL solution), expiration date: 11/15/2025, tap dancer lot #: [id number], NDC #: [id number].Patient was observed for 10 minutes. Patient tolerated procedure well. Patient left room without difficulty. Complications: 2nd treatment required.Patient tolerated procedure well. Patient left room without difficulty.Respiratory exam (after nebulizer session 2): time of evaluation: 12 :50 PM. respiration abnormal, mild wheezes diffusely on right, wheezes diffusely on left, sx improvement. sat 94-96.Pulse: 82/min. O2 Saturation: 94%. patient tolerated procedure well, patient left room ambulating without difficulty. J7620 [facility]4 Administer Nebul izer Treatment 03/31/2024 completed Abram Montgomeryill - 03/31/2024 Therapeutic nebulizer therapy (treatment of airway obstruction).Pulse: 77/min. O2 Saturation: 94%.Nebulizer session 1: Medication: Albuterol and Ipratropium, 1 unit dose (3mL of 0.5mg and 3.0mg/3mL solution), expiration date: 09/16/2025, tap dancer lot #: [id number], NDC #: [id number].Patient was observed for 10 minutes.Nebulizer session 2: Medication: Albuterol and Ipratropium, 1 unit dose (3mL of 0.5mg and 3.0mg/3mL solution), expiration date: 11/15/2025, tap dancer lot #: [id number], NDC #: [id number].Patient was observed for 10 minutes. Patient tolerated procedure well. Patient left room without difficulty. Complications: 2nd treatment required.Patient tolerated procedure well. Patient left room without difficulty.Respiratory exam (after nebulizer session 2): time of evaluation: 12 :50 PM. respiration abnormal, mild wheezes diffusely on right, wheezes diffusely on left, sx improvement. sat 94-96.Pulse: 82/min. O2 Saturation: 94%. patient tolerated procedure well, patient left room ambulating without difficulty. J7620 [facility] Administer Nebul izer Treatment 03/31/2024 completed Abram Watts - 03/31/2024 Therapeutic nebulizer therapy (treatment of airway obstruction).Pulse: 77/min. O2 Saturation: 94%.Nebulizer session 1: Medication: Albuterol and Ipratropium, 1 unit dose (3mL of 0.5mg and 3.0mg/3mL solution), expiration date: 09/16/2025, tap dancer lot #: [id number], NDC #: [id number].Patient was observed for 10 minutes.Nebulizer session 2: Medication: Albuterol and Ipratropium, 1 unit dose (3mL of 0.5mg and 3.0mg/3mL solution), expiration date: 11/15/2025, tap dancer lot #: [id number], NDC #: [id number].Patient was observed for 10 minutes. Patient tolerated procedure well. Patient left room without difficulty. Complications: 2nd treatment required.Patient tolerated procedure well. Patient left room without difficulty.Respiratory exam (after nebulizer session 2): time of evaluation: 12 :50 PM. respiration abnormal, mild wheezes diffusely on right, wheezes diffusely on left, sx improvement. sat 94-96.Pulse: 82/min. O2 Saturation: 94%. patient tolerated procedure well, patient left room ambulating without difficulty. MEDICAL EQUIPMENT * Patient has no history of implantable devices ASSESSMENT Assessment Take the antibiotics as pres cribed.Take the prednisone as prescribed.Use your albuterol inhaler 2 puffs every 4 hours for cough and wheezing.Please follow-up with me tomorrow at 11 AM.As we discussed you should use your pulse oximeter at home. If your oxygen reads less than 92% you should go to the hospital.If you feel symptoms worsen or you develop a fever you should also go immediately to the hospital. TREATMENT PLAN Type Description Date MEDICATION Take 20 mg tablet 03/31/2024 MEDICATION Take 03/31/2024 MEDICATION Take 03/31/2024 APPOINTMENT If not feeling eva r in 3 day(s), please see your primary care physician. If you do not have a primary care physician, please return to this clinic. 03/31/2024 Lab Tests None GOALS * None HEALTH CONCERNS * No Health Concerns FUNCTIONAL AND COGNITIVE STATUS * None CONSULTATION NOTES * None DISCHARGE SUMMARY NOTES * None HISTORY AND PHYSICAL NOTES * None IMAGING NOTES * /[place]astern History: cough, hypoxia.ExaminationDescription: Chest xray, frontal and lateral viewsComparisons:None provided. FindingsCardiomegalyThe aorta is tortuous and ectaticPatchy infiltrates in the bilateral lung basesNo pleural effusions are seen.There is no pneumothorax present. There is a moderate hiatal herniaSurgical clips in right upper quadrantIMPRESSION:1. Cardiomegaly2. There is a moderate hiatal hernia3. Patchy infiltrates in the bilateral lung bases LABORATORY REPORT NARRATIVE NOTES * None PATHOLOGY REPORT NARRATIVE NOTES * None PROGRESS NOTES * None
--- OUTSIDE RECORDS SUMMARY | 2024-11-03 12:53 | XMS_ITS ---
Author Organization [facility], Address [address] [facility] [place] [address] Care Team Providers Care Advertising Space Clerk Name Role Phone Flakita Lott [facility] [phone] ALLERGIES, ADVERSE REACTIONS, ALERTS None MEDICATIONS Medication Code Code System Start Date Stop Date Route Dosage Directions Fill Instructions lisinopril RxNorm 11/12/20 23 1 azithromycin 509508 RxNorm 4 oral 1 prednisone 728503 RxNorm 4 oral 3 amoxicillin-pot clavulanate 096665 RxNorm 4 oral 1 Caltrate with Vitamin D3 RxNorm 11/12/20 23 1 pravastatin sodium RxNorm 11/12/20 23 1 PROBLEMS Problem Name Code Code System Start Date End Date Stat us Essential (primary) hypertension 82286763 [facility] Active Other hyperlipidemia 3639776 [facility] Active Other specified arthritis, unspecified site 0728144 [facility] Active Other asthma 856902000 [facility] Active Acute pharyngitis, unspecified 455285050 [facility] 03/26/2024 Active Acute cough 32134501 [facility] 03/26/2024 Active Pneumonia, unspecified organism 770375119 [facility] 4 Active ENCOUNTERS Encounter Diagnosis Code Code System Date Stat us Other asthma 696618699 [facility] 03/26/2024 Active Acute pharyngitis, unspecified 096052433 [facility] 2023 Active Acute cough 38094175 [facility] 03/26/2024 Active IMMUNIZATIONS * None VITAL SIGNS Code Code System Vitals Name Date Value and Un its 8462-4 [facility] Blood Pressure-Diastolic 03/26/2024 94 mmHg 8480-6 [facility] Blood Pressure-Systolic 03/26/2024 1 49 mmHg 8867-4 [facility] Heart Rate 03/26/2024 74 /min 9279-1 [facility] Respiratory Rate 03/26/2024 16 /min 8310-5 [facility] Body Temperature 03/26/2024 97.9 F 50188-7 [facility] Oxygen Saturation 03/26/2024 98 % SOCIAL HISTORY * None PROCEDURES * None RESULTS Test Code Code System Description Result Value Date Ref erence Range [facility] Strep A Not Detected 03/26/2024 Not Det ected [facility] SARS-CoV-2 Not Detected 03/26/2024 Not De tected [facility] Flu A Not Detected 03/26/2024 Not Det ected [facility] Flu B Not Detected 03/26/2024 Not Det ected MEDICAL EQUIPMENT * Patient has no history of implantable devices ASSESSMENT Assessment You were evaluated for the c ongestion cough and sore throat.Your testing is negative.It seems you have a respiratory virus that is triggering your asthma.Use your albuterol inhaler every 4-6 hours as needed.If you feel as though you are needing to use your rescue inhaler more and more frequently or feel you are having more wheezing/develop shortness of breath please return.Take the cough medication as needed.Sios-gaa-tamqnvd throat lozenges can be used for the sore throat.You may take Tylenol 650 mg orally every 6 hours as needed.As we discussed please be monitoring your blood pressure over the next few days. If it remains elevated please contact your primary care doctor. TREATMENT PLAN Type Description Date MEDICATION Take 03/26/2024 APPOINTMENT If not feeling eva r in 3 day(s), please see your primary care physician. If you do not have a primary care physician, please return to this clinic. 03/26/2024 Labs Tests Test Name Code Code System Date Dimple/Cepheid SARS-CoV-2 & Fl u A/B Multiplex Assay, Amplified Probe Molecular RT-PCR / NAAT 85431 CPT 03/26/2024 Dimple/Cepheid Strep A, DNA, Amplified Probe PCR 36105 CPT 03/26/2024 GOALS * None HEALTH CONCERNS * No Health Concerns FUNCTIONAL AND COGNITIVE STATUS * None CONSULTATION NOTES * None DISCHARGE SUMMARY NOTES * None HISTORY AND PHYSICAL NOTES * None IMAGING NOTES * None LABORATORY REPORT NARRATIVE NOTES * None PATHOLOGY REPORT NARRATIVE NOTES * None PROGRESS NOTES * None
--- OUTSIDE RECORDS SUMMARY | 2024-11-03 12:53 | XMS_ITS ---
Author Organization [facility], Address [address] [facility] [place] [address] Care Team Providers Care Academic Support Director Name Role Phone Flakita Lott [facility] [phone] ALLERGIES, ADVERSE REACTIONS, ALERTS None MEDICATIONS Medication Code Code System Start Date Stop Date Route Dosage Directions Fill Instructions lisinopril RxNorm 11/12/20 23 1 azithromycin 995757 RxNorm 4 oral 1 prednisone 033639 RxNorm 4 oral 3 amoxicillin-pot clavulanate 439182 RxNorm 4 oral 1 Caltrate with Vitamin D3 RxNorm 11/12/20 23 1 pravastatin sodium RxNorm 11/12/20 23 1 PROBLEMS Problem Name Code Code System Start Date End Date Stat us Essential (primary) hypertension 11602308 [facility] Active Other hyperlipidemia 2566763 [facility] Active Other specified arthritis, unspecified site 5982619 [facility] Active Other asthma 740299667 [facility] Active Acute pharyngitis, unspecified 865054993 [facility] 03/26/2024 Active Acute cough 52817726 [facility] 03/26/2024 Active Pneumonia, unspecified organism 143593162 [facility] 4 Active ENCOUNTERS Encounter Diagnosis Code Code System Date Stat us Other asthma 661816508 [facility] 04/01/2024 Active Essential (primary) hypertension 89327565 [facility] 03/17 Active Pneumonia, unspecified organism 755228753 [facility] 04/01 Active IMMUNIZATIONS * None VITAL SIGNS Code Code System Vitals Name Date Value and Un its 8462-4 [facility] Blood Pressure-Diastolic 04/01/2024 82 mmHg 8480-6 [facility] Blood Pressure-Systolic 04/01/2024 1 50 mmHg 8867-4 [facility] Heart Rate 04/01/2024 78 /min 9279-1 [facility] Respiratory Rate 04/01/2024 16 /min 8310-5 [facility] Body Temperature 04/01/2024 98.6 F 75343-6 [facility] Oxygen Saturation 04/01/2024 95 % SOCIAL HISTORY * None PROCEDURES Code Code System Procedure Date Status Notes 01998 [facility]4 Administer Nebul izer Treatment 04/01/2024 [facility] Therapeutic nebulizer therapy (treatment of airway obstruction).Nebulizer session 1: Medication: Albuterol and Ipratropium, 1 unit dose (3mL of 0.5mg and 3.0mg/3mL solution), expiration date: 11/16/2025, outgoing inspector lot #: [id number], brand name: DuoNeb, NDC #: [id number].Patient was observed for 5 minutes. Patient tolerated procedure well. Patient left room without difficulty.O2 Saturation: 95%. J7620 [facility]4 Administer Nebul izer Treatment 04/01/2024 completed Abram Cobill - 04/01/2024 Therapeutic nebulizer therapy (treatment of airway obstruction).Nebulizer session 1: Medication: Albuterol and Ipratropium, 1 unit dose (3mL of 0.5mg and 3.0mg/3mL solution), expiration date: 11/16/2025, outgoing inspector lot #: [id number], brand name: DuoNeb, NDC #: [id number].Patient was observed for 5 minutes. Patient tolerated procedure well. Patient left room without difficulty.O2 Saturation: 95%. MEDICAL EQUIPMENT * Patient has no history of implantable devices ASSESSMENT Assessment Your oxygen is bit better to day.More importantly you appear better and your lungs sound better.Please continue the antibiotics as well as the prednisone.Use your albuterol inhaler 2 puffs every 4 hours as needed for cough/wheezing.As long as your symptoms continue to improve/resolve and your oxygen gradually trended back up to his normal level around 97% no further follow-up is needed.I would monitor your blood pressure at home.If it remains elevated you must arrange follow-up with your primary care doctor to discuss changes or additional medications for managing her blood pressure TREATMENT PLAN Type Description Date APPOINTMENT If not feeling eva r in 3 day(s), please see your primary care physician. If you do not have a primary care physician, please return to this clinic. 04/01/2024 Lab Tests None GOALS * None HEALTH CONCERNS * No Health Concerns FUNCTIONAL AND COGNITIVE STATUS * None CONSULTATION NOTES * None DISCHARGE SUMMARY NOTES * None HISTORY AND PHYSICAL NOTES * None IMAGING NOTES * None LABORATORY REPORT NARRATIVE NOTES * None PATHOLOGY REPORT NARRATIVE NOTES * None PROGRESS NOTES * None
[2024-11-03 12:56] VITALS: BMI 35.3
--- NOTE | 2024-11-03 12:56 | MHC.OFFVIS ---
Vital Signs 11/03/24 12:56 Height 5 ft Weight 181 lb BMI 35.3 Intake Visit Reasons: Bilateral knee pains Intake Note: Lisbeth is a 79 year old female who presents with complaints of progressively worsening bilateral knee pains. She describes her pains as sharp in nature. Her pains have gotten worse over the last few months in spite of continued non operative treatments. She has had cortisone injections which gave her minimal relief. She has also had viscosupplementation injections which gave her fairly good relief. She has done physical therapy exercises which aggravated her pain. She has also tried Tylenol and anti-inflammatory medicines which gave her minimal relief. She wishes to hold off on surgery for as long as possible. Allergies No Known Allergies Allergy (Verified 11/03/24 12:59) Medication List - Last Reconciled 11/03/24 by Enzo Hunter MD calcium carbonate-vitamin D3 600 mg-20 mcg (800 unit) (Caltrate with Vitamin D3) 1 tab PO DAILY lisinopril 20 mg PO DAILY oxycodone 5 mg PO Q6H PRN PFSH Medical History Hypertension Anemia Surgical History Hx of cholecystectomy Social History (Updated 09/28/24 @ 13:55 by NICKO Multani) Alcohol intake: never Patient Tobacco Use Status: Never used Tobacco Current occupational status: retired Current occupation: Right hand dominant Physical Exam Vital Signs: BMI result Body Mass Index 35.3 Const Other: Well-nourished well-developed very friendly female awake alert and oriented x3 in no acute distress Extrem Other: Bilateral lower extremity examination shows good capillary refill, no skin lesions noted, normal sensation light touch Bilateral knee examination shows minimal effusions, palpable crepitus with range of motion, pain with range of motion, range of motion from -3 degrees to 115 degrees, no instability Office Procedures AMB Joint Injection/Aspiration Joint Injection/Aspiration Primary Site: right knee Prep: site was prepped using aseptic technique Injected: 20 mg of (Euflexxa viscosupplementation) and 1% plain lidocaine Procedure: The patient tolerated the procedure well Coding 88209 - Large joint Procedure code (CPT) selection complete AMB Joint Injection/Aspiration Joint Injection/Aspiration Primary Site: left knee Prep: site was prepped using aseptic technique Injected: 20 mg of (Euflexxa viscosupplementation) and 1% plain lidocaine Procedure: The patient tolerated the procedure well Coding - Large joint Procedure code (CPT) selection complete Results Reviewed Results Reviewed: X-rays of the patient's bilateral knees taken previously show joint space narrowing, subchondral sclerosis, no acute bony abnormalities Assessment & Plan Assessment & Plan (1) Osteoarthritis of left knee: Code(s): M17.12 - Unilateral primary osteoarthritis, left knee Category: Medical (2) Osteoarthritis of right knee: Code(s): M17.11 - Unilateral primary osteoarthritis, right knee Category: Medical Plan Ms. Blackman presents with bilateral knee pains due to osteoarthritis. The risks and benefits of a series of Euflexxa injections were discussed at length with the patient. The patient wished to proceed. She tolerated the 1st 2 injections well. She will continue with her home exercise program. She will follow up next week as scheduled. Feel free to call me at any time should questions regarding her orthopedic management arise. I spent 22 minutes in reviewing the patient's records and imaging studies, seeing the patient and documenting in the medical record. Orders: Orders AMB Joint Injection/Aspiration Today M17.11 - Unilateral primary osteoarthritis, right knee AMB Joint Injection/Aspiration Today M17.12 - Unilateral primary osteoarthritis, left knee Coding Level of Care Code Est Pt Level 3 (36700) Complex EM visit Add On G2211 Diagnoses Osteoarthritis of left knee M17.12 Osteoarthritis of right knee M17.11 CPT Codes Coding - Large joint: 96985 - Large joint ([id number]) Coding - 85733 Large joint: 53591 - Large joint ([id number])
== END 2024-11-03 13:30 | disposition home or self-care (01) ==
PROVIDERS: PCP Internal Medicine; Visit Provider Orthopaedic Surgery
DX: M17.0 Bilateral primary osteoarthritis of knee (principal); M17.11 Unilateral primary osteoarthritis, right knee
CPT/HCPCS: 20610; 99213

== ENCOUNTER → 2024-11-03 12:48 | Outpatient (BNVA) | payer MEDICARE, SELFPAY | PROVIDERS: PCP Internal Medicine; Visit Provider Orthopaedic Surgery | DX: M17.0 Bilateral primary osteoarthritis of knee (principal) | CPT/HCPCS: 20610; 99212; J2003; J7323 ==

== ENCOUNTER 2024-11-09 10:13 | Outpatient (AMB) | payer MEDICARE, SELFPAY ==
[2024-11-09 10:16] VITALS: BMI 35.3
--- NOTE | 2024-11-09 10:16 | MHC.OFFVIS ---
Vital Signs 11/09/24 10:16 Height 5 ft Weight 181 lb BMI 35.3 Intake Visit Reasons: INJ-Bilateral knee Euflexxa #2 Intake Note: Lisbeth is a 79 year old female who presents for follow-up of her bilateral knee pains. She states that she has gotten mild relief from the 1st set of Euflexxa injections. She continues with her home exercise program. Allergies No Known Allergies Allergy (Verified 11/09/24 10:16) Medication List - Last Reconciled 11/09/24 by Enzo Hunter MD calcium carbonate-vitamin D3 600 mg-20 mcg (800 unit) (Caltrate with Vitamin D3) 1 tab PO DAILY lisinopril 20 mg PO DAILY PFSH Medical History Hypertension Anemia Surgical History Hx of cholecystectomy Social History (Updated 09/28/24 @ 13:55 by NICKO Multani) Alcohol intake: never Patient Tobacco Use Status: Never used Tobacco Current occupational status: retired Current occupation: Right hand dominant Physical Exam Vital Signs: BMI result Body Mass Index 35.3 Extrem Other: Bilateral knee examination shows minimal effusions, palpable crepitus with range of motion, pain with range of motion, no instability Office Procedures AMB Joint Injection/Aspiration Joint Injection/Aspiration Primary Site: left knee Prep: site was prepped using aseptic technique Injected: 20 mg of (Euflexxa viscosupplementation) and 1% plain lidocaine Procedure: The patient tolerated the procedure well Coding 73896 - Large joint Procedure code (CPT) selection complete AMB Joint Injection/Aspiration Joint Injection/Aspiration Primary Site: right knee Prep: site was prepped using aseptic technique Injected: 20 mg of (Euflexxa viscosupplementation) and 1% plain lidocaine Procedure: The patient tolerated the procedure well Coding 83947 - Large joint Procedure code (CPT) selection complete Results Reviewed Results Reviewed: X-rays of the patient's bilateral knees taken previously show joint space narrowing, subchondral sclerosis, no acute bony abnormalities Assessment & Plan Assessment & Plan (1) Osteoarthritis of left knee: Code(s): M17.12 - Unilateral primary osteoarthritis, left knee Category: Medical (2) Osteoarthritis of right knee: Code(s): M17.11 - Unilateral primary osteoarthritis, right knee Category: Medical Plan Ms. Blackman presents with bilateral knee pains due to osteoarthritis. The risks and benefits of a 2nd set of Euflexxa injections were discussed at length with the patient. The patient wished to proceed. She tolerated the injections well. She will continue with her home exercise program. She will follow up next week as scheduled. Feel free to call me at any time should questions regarding her orthopedic management arise. Orders: Orders AMB Joint Injection/Aspiration Today M17.12 - Unilateral primary osteoarthritis, left knee AMB Joint Injection/Aspiration Today M17.11 - Unilateral primary osteoarthritis, right knee Coding Level of Care Code Procedure Only Diagnoses Osteoarthritis of left knee M17.12 Osteoarthritis of right knee M17.11 CPT Codes Coding - 16444 Large joint: 25758 - Large joint ([id number]) Coding - 48192 Large joint: 28683 - Large joint ([id number])
--- OUTSIDE RECORDS SUMMARY | 2024-11-09 10:16 | XMS_ITS ---
Author Organization [facility], Address [address] [facility] [place] [address] Care Team Providers Care Shuttler Car Name Role Phone Flakita Lott [facility] [phone] ALLERGIES, ADVERSE REACTIONS, ALERTS None MEDICATIONS Medication Code Code System Start Date Stop Date Route Dosage Directions Fill Instructions lisinopril RxNorm 11/12/20 23 1 azithromycin 082753 RxNorm 4 oral 1 prednisone 869518 RxNorm 4 oral 3 amoxicillin-pot clavulanate 485041 RxNorm 4 oral 1 Caltrate with Vitamin D3 RxNorm 11/12/20 23 1 pravastatin sodium RxNorm 11/12/20 23 1 PROBLEMS Problem Name Code Code System Start Date End Date Stat us Essential (primary) hypertension 08925693 [facility] Active Other hyperlipidemia 6744902 [facility] Active Other specified arthritis, unspecified site 4667064 [facility] Active Other asthma 573193994 [facility] Active Acute pharyngitis, unspecified 658137874 [facility] 03/26/2024 Active Acute cough 03537043 [facility] 03/26/2024 Active Pneumonia, unspecified organism 758980650 [facility] 4 Active ENCOUNTERS Encounter Diagnosis Code Code System Date Stat us Other asthma 629072993 [facility] 03/26/2024 Active Acute pharyngitis, unspecified 547275543 [facility] 2023 Active Acute cough 88642593 [facility] 03/26/2024 Active IMMUNIZATIONS * None VITAL SIGNS Code Code System Vitals Name Date Value and Un its 8462-4 [facility] Blood Pressure-Diastolic 03/26/2024 94 mmHg 8480-6 [facility] Blood Pressure-Systolic 03/26/2024 1 49 mmHg 8867-4 [facility] Heart Rate 03/26/2024 74 /min 9279-1 [facility] Respiratory Rate 03/26/2024 16 /min 8310-5 [facility] Body Temperature 03/26/2024 97.9 F 78516-5 [facility] Oxygen Saturation 03/26/2024 98 % SOCIAL HISTORY [...] breath please return.Take the cough medication as needed.Pgvc-lru-bynssxv throat lozenges can be used for the [...] Assay, Amplified Probe Molecular RT-PCR / NAAT 56597 CPT 03/26/2024 Dimple/Cepheid Strep A, DNA, Amplified Probe PCR 23672 CPT 03/26/2024 GOALS * None HEALTH CONCERNS * No Health Concerns FUNCTIONAL AND COGNITIVE STATUS * None CONSULTATION NOTES * None DISCHARGE SUMMARY NOTES * None HISTORY AND PHYSICAL NOTES * None IMAGING NOTES * None LABORATORY REPORT NARRATIVE NOTES * None PATHOLOGY REPORT NARRATIVE NOTES * None PROGRESS NOTES * None
--- OUTSIDE RECORDS SUMMARY | 2024-11-09 10:16 | XMS_ITS ---
Author Organization [facility], Address [address] [facility] [place] [address] Care Team Providers Care Head Stock Transfer Clerk Name Role Phone Flakita Lott [facility] [phone] ALLERGIES, ADVERSE REACTIONS, ALERTS None MEDICATIONS Medication Code Code System Start Date Stop Date Route Dosage Directions Fill Instructions lisinopril RxNorm 11/12/20 23 1 azithromycin 570103 RxNorm 4 oral 1 prednisone 114125 RxNorm 4 oral 3 amoxicillin-pot clavulanate 904977 RxNorm 4 oral 1 Caltrate with Vitamin D3 RxNorm 11/12/20 23 1 pravastatin sodium RxNorm 11/12/20 23 1 PROBLEMS Problem Name Code Code System Start Date End Date Stat us Essential (primary) hypertension 90506103 [facility] Active Other hyperlipidemia 0834295 [facility] Active Other specified arthritis, unspecified site 9556681 [facility] Active Other asthma 377651978 [facility] Active Acute pharyngitis, unspecified 392503648 [facility] 03/26/2024 Active Acute cough 07083882 [facility] 03/26/2024 Active Pneumonia, unspecified organism 939753877 [facility] 4 Active ENCOUNTERS Encounter Diagnosis Code Code System Date Stat us Other asthma 471199711 [facility] 03/31/2024 Active Pneumonia, unspecified organism 012494751 [facility] 03/31 Active IMMUNIZATIONS * None VITAL SIGNS Code Code System Vitals Name Date Value and Un its 8462-4 [facility] Blood Pressure-Diastolic 03/31/2024 84 mmHg 8480-6 [facility] Blood Pressure-Systolic 03/31/2024 1 44 mmHg 8867-4 [facility] Heart Rate 03/31/2024 77 /min 9279-1 [facility] Respiratory Rate 03/31/2024 19 /min 8310-5 [facility] Body Temperature 03/31/2024 97.1 F 79686-7 [facility] Oxygen Saturation 03/31/2024 94 % SOCIAL HISTORY * None PROCEDURES Code Code System Procedure Date Status Notes 28888 [facility]4 Administer Nebul izer Treatment 03/31/2024 completed Abram Montgomeryill - 03/31/2024 Therapeutic nebulizer therapy (treatment of airway obstruction).Pulse: 77/min. O2 Saturation: 94%.Nebulizer session 1: Medication: Albuterol and Ipratropium, 1 unit dose (3mL of 0.5mg and 3.0mg/3mL solution), expiration date: 09/16/2025, lockstitch hemmer lot #: [id number], NDC #: 0981-0404-01.Patient was observed for 10 minutes.Nebulizer session 2: Medication: Albuterol and Ipratropium, 1 unit dose (3mL of 0.5mg and 3.0mg/3mL solution), expiration date: 11/15/2025, lockstitch hemmer lot #: [id number], NDC #: 4554-9227-79.Patient was observed for 10 minutes. Patient tolerated [...] patient left room ambulating without difficulty. J7620 [facility]4 Administer Nebul izer Treatment 03/31/2024 completed Abram Montgomeryill - 03/31/2024 Therapeutic nebulizer therapy (treatment of airway obstruction).Pulse: 77/min. O2 Saturation: 94%.Nebulizer session 1: Medication: Albuterol and Ipratropium, 1 unit dose (3mL of 0.5mg and 3.0mg/3mL solution), expiration date: 09/16/2025, lockstitch hemmer lot #: [id number], NDC #: 2955-7941-87.Patient was observed for 10 minutes.Nebulizer session 2: Medication: Albuterol and Ipratropium, 1 unit dose (3mL of 0.5mg and 3.0mg/3mL solution), expiration date: 11/15/2025, lockstitch hemmer lot #: [id number], NDC #: 3707-5004-52.Patient was observed for 10 minutes. Patient tolerated [...] 0.5mg and 3.0mg/3mL solution), expiration date: 09/16/2025, lockstitch hemmer lot #: [id number], NDC #: 2983-1642-79.Patient was observed for 10 minutes.Nebulizer session 2: Medication: Albuterol and Ipratropium, 1 unit dose (3mL of 0.5mg and 3.0mg/3mL solution), expiration date: 11/15/2025, lockstitch hemmer lot #: [id number], NDC #: 2819-6755-74.Patient was observed for 10 minutes. Patient tolerated [...]
--- OUTSIDE RECORDS SUMMARY | 2024-11-09 10:16 | XMS_ITS ---
Author Organization [facility], Address [address] [facility] [place] [address] Care Team Providers Care Draw Machine Operator Name Role Phone Flakita Lott [facility] [phone] ALLERGIES, ADVERSE REACTIONS, ALERTS None MEDICATIONS Medication Code Code System Start Date Stop Date Route Dosage Directions Fill Instructions lisinopril RxNorm 11/12/20 23 1 azithromycin 586383 RxNorm 4 oral 1 prednisone 283676 RxNorm 4 oral 3 amoxicillin-pot clavulanate 158822 RxNorm 4 oral 1 Caltrate with Vitamin D3 RxNorm 11/12/20 23 1 pravastatin sodium RxNorm 11/12/20 23 1 PROBLEMS Problem Name Code Code System Start Date End Date Stat us Essential (primary) hypertension 66080777 [facility] Active Other hyperlipidemia 1688809 [facility] Active Other specified arthritis, unspecified site 5716491 [facility] Active Other asthma 492354566 [facility] Active Acute pharyngitis, unspecified 811210393 [facility] 03/26/2024 Active Acute cough 95909865 [facility] 03/26/2024 Active Pneumonia, unspecified organism 213849251 [facility] 4 Active ENCOUNTERS Encounter Diagnosis Code Code System Date Stat us Other asthma 215223764 [facility] 04/01/2024 Active Essential (primary) hypertension 43950682 [facility] 03/17 Active Pneumonia, unspecified organism 644758570 [facility] 04/01 Active IMMUNIZATIONS * None VITAL SIGNS Code Code System Vitals Name Date Value and Un its 8462-4 [facility] Blood Pressure-Diastolic 04/01/2024 82 mmHg 8480-6 [facility] Blood Pressure-Systolic 04/01/2024 1 50 mmHg 8867-4 [facility] Heart Rate 04/01/2024 78 /min 9279-1 [facility] Respiratory Rate 04/01/2024 16 /min 8310-5 [facility] Body Temperature 04/01/2024 98.6 F 94835-4 [facility] Oxygen Saturation 04/01/2024 95 % SOCIAL HISTORY * None PROCEDURES Code Code System Procedure Date Status Notes 91437 Cpt4 Administer Nebul izer Treatment 04/01/2024 [facility] Therapeutic nebulizer therapy (treatment of airway obstruction).Nebulizer session 1: Medication: Albuterol and Ipratropium, 1 unit dose (3mL of 0.5mg and 3.0mg/3mL solution), expiration date: 11/16/2025, joint maker machine lot #: [id number], brand name: DuoNeb, NDC #: [id number].Patient was observed for 5 minutes. Patient tolerated procedure well. Patient left room without difficulty.O2 Saturation: 95%. J7620 Cpt4 Administer Nebul izer Treatment 04/01/2024 completed Abram Cobill - 04/01/2024 Therapeutic nebulizer therapy (treatment of airway obstruction).Nebulizer session 1: Medication: Albuterol and Ipratropium, 1 unit dose (3mL of 0.5mg and 3.0mg/3mL solution), expiration date: 11/16/2025, joint maker machine lot #: [id number], brand name: DuoNeb, NDC #: [id number].Patient was observed for 5 minutes. Patient tolerated [...]
--- OUTSIDE RECORDS SUMMARY | 2024-11-09 10:17 | XMS_ITS ---
Author Organization [facility], Address [address] [facility] [place] [address] Care Team Providers Care Speech Communication Professor Name Role Phone Flakita Lott [facility] [phone] ALLERGIES, ADVERSE REACTIONS, ALERTS None MEDICATIONS Medication Code Code System Start Date Stop Date Route Dosage Directions Fill Instructions lisinopril RxNorm 11/12/20 23 1 azithromycin 467473 RxNorm 4 oral 1 prednisone 393047 RxNorm 4 oral 3 amoxicillin-pot clavulanate 442662 RxNorm 4 oral 1 Caltrate with Vitamin D3 RxNorm 11/12/20 23 1 pravastatin sodium RxNorm 11/12/20 23 1 PROBLEMS Problem Name Code Code System Start Date End Date Stat us Essential (primary) hypertension 79073592 [facility] Active Other hyperlipidemia 9168813 [facility] Active Other specified arthritis, unspecified site 7148111 [facility] Active Other asthma 065495497 [facility] Active Acute pharyngitis, unspecified 159504631 [facility] 03/26/2024 Active Acute cough 79357925 [facility] 03/26/2024 Active Pneumonia, unspecified organism 031962392 [facility] 4 Active ENCOUNTERS Encounter Diagnosis Code Code System Date Stat us Other asthma 253624268 [facility] 03/26/2024 Active Acute pharyngitis, unspecified 160432098 [facility] 2023 Active Acute cough 97334419 [facility] 03/26/2024 Active IMMUNIZATIONS * None VITAL SIGNS Code Code System Vitals Name Date Value and Un its 8462-4 [facility] Blood Pressure-Diastolic 03/26/2024 94 mmHg 8480-6 [facility] Blood Pressure-Systolic 03/26/2024 1 49 mmHg 8867-4 [facility] Heart Rate 03/26/2024 74 /min 9279-1 [facility] Respiratory Rate 03/26/2024 16 /min 8310-5 [facility] Body Temperature 03/26/2024 97.9 F 95492-2 [facility] Oxygen Saturation 03/26/2024 98 % SOCIAL [...] breath please return.Take the cough medication as needed.Hszl-cip-qsphrfz throat lozenges can be used for the [...] Assay, Amplified Probe Molecular RT-PCR / NAAT 03364 CPT 03/26/2024 Dimple/Cepheid Strep A, DNA, Amplified Probe PCR 53668 CPT 03/26/2024 GOALS * None HEALTH CONCERNS * No Health Concerns FUNCTIONAL AND COGNITIVE STATUS * None CONSULTATION NOTES * None DISCHARGE SUMMARY NOTES * None HISTORY AND PHYSICAL NOTES * None IMAGING NOTES * None LABORATORY REPORT NARRATIVE NOTES * None PATHOLOGY REPORT NARRATIVE NOTES * None PROGRESS NOTES * None
--- OUTSIDE RECORDS SUMMARY | 2024-11-09 10:17 | XMS_ITS ---
Author Organization [facility], Address [address] [facility] [place] [address] Care Team Providers Care Washateria Attendant Name Role Phone Flakita Lott [facility] [phone] ALLERGIES, ADVERSE REACTIONS, ALERTS None MEDICATIONS Medication Code Code System Start Date Stop Date Route Dosage Directions Fill Instructions lisinopril RxNorm 11/12/20 23 1 azithromycin 302753 RxNorm 4 oral 1 prednisone 891030 RxNorm 4 oral 3 amoxicillin-pot clavulanate 978001 RxNorm 4 oral 1 Caltrate with Vitamin D3 RxNorm 11/12/20 23 1 pravastatin sodium RxNorm 11/12/20 23 1 PROBLEMS Problem Name Code Code System Start Date End Date Stat us Essential (primary) hypertension 04730194 [facility] Active Other hyperlipidemia 8015558 [facility] Active Other specified arthritis, unspecified site 8522335 [facility] Active Other asthma 761082619 [facility] Active Acute pharyngitis, unspecified 251952244 [facility] 03/26/2024 Active Acute cough 48280745 [facility] 03/26/2024 Active Pneumonia, unspecified organism 318721003 [facility] 4 Active ENCOUNTERS Encounter Diagnosis Code Code System Date Stat us Other asthma 276647885 [facility] 03/31/2024 Active Pneumonia, unspecified organism 257985852 [facility] 03/31 Active IMMUNIZATIONS * None VITAL SIGNS Code Code System Vitals Name Date Value and Un its 8462-4 [facility] Blood Pressure-Diastolic 03/31/2024 84 mmHg 8480-6 [facility] Blood Pressure-Systolic 03/31/2024 1 44 mmHg 8867-4 [facility] Heart Rate 03/31/2024 77 /min 9279-1 [facility] Respiratory Rate 03/31/2024 19 /min 8310-5 [facility] Body Temperature 03/31/2024 97.1 F 78632-5 [facility] Oxygen Saturation 03/31/2024 94 % SOCIAL HISTORY * None PROCEDURES Code Code System Procedure Date Status Notes 59084 [facility]4 Administer Nebul izer Treatment 03/31/2024 completed Abram Montgomeryill - 03/31/2024 Therapeutic nebulizer therapy (treatment of airway obstruction).Pulse: 77/min. O2 Saturation: 94%.Nebulizer session 1: Medication: Albuterol and Ipratropium, 1 unit dose (3mL of 0.5mg and 3.0mg/3mL solution), expiration date: 09/16/2025, gis analyst lot #: [id number], NDC #: 0102-4989-33.Patient was observed for 10 minutes.Nebulizer session 2: Medication: Albuterol and Ipratropium, 1 unit dose (3mL of 0.5mg and 3.0mg/3mL solution), expiration date: 11/15/2025, gis analyst lot #: [id number], NDC #: 7620-2159-70.Patient was observed for 10 minutes. Patient tolerated [...] patient left room ambulating without difficulty. J7620 [facility]4 Administer Nebul izer Treatment 03/31/2024 completed Abram Montgomeryill - 03/31/2024 Therapeutic nebulizer therapy (treatment of airway obstruction).Pulse: 77/min. O2 Saturation: 94%.Nebulizer session 1: Medication: Albuterol and Ipratropium, 1 unit dose (3mL of 0.5mg and 3.0mg/3mL solution), expiration date: 09/16/2025, gis analyst lot #: [id number], NDC #: 9165-2206-52.Patient was observed for 10 minutes.Nebulizer session 2: Medication: Albuterol and Ipratropium, 1 unit dose (3mL of 0.5mg and 3.0mg/3mL solution), expiration date: 11/15/2025, gis analyst lot #: [id number], NDC #: 7888-6029-64.Patient was observed for 10 minutes. Patient tolerated [...] 0.5mg and 3.0mg/3mL solution), expiration date: 09/16/2025, gis analyst lot #: [id number], NDC #: 7350-5931-88.Patient was observed for 10 minutes.Nebulizer session 2: Medication: Albuterol and Ipratropium, 1 unit dose (3mL of 0.5mg and 3.0mg/3mL solution), expiration date: 11/15/2025, gis analyst lot #: [id number], NDC #: 0886-5557-23.Patient was observed for 10 minutes. Patient tolerated [...]
--- OUTSIDE RECORDS SUMMARY | 2024-11-09 10:18 | XMS_ITS ---
Author Organization [facility], Address [address] [facility] [place] [address] Care Team Providers Care Purler Name Role Phone Flakita Lott [facility] [phone] ALLERGIES, ADVERSE REACTIONS, ALERTS None MEDICATIONS Medication Code Code System Start Date Stop Date Route Dosage Directions Fill Instructions lisinopril RxNorm 11/12/20 23 1 azithromycin 168053 RxNorm 4 oral 1 prednisone 264293 RxNorm 4 oral 3 amoxicillin-pot clavulanate 096943 RxNorm 4 oral 1 Caltrate with Vitamin D3 RxNorm 11/12/20 23 1 pravastatin sodium RxNorm 11/12/20 23 1 PROBLEMS Problem Name Code Code System Start Date End Date Stat us Essential (primary) hypertension 66464961 [facility] Active Other hyperlipidemia 4468995 [facility] Active Other specified arthritis, unspecified site 6276566 [facility] Active Other asthma 815611343 [facility] Active Acute pharyngitis, unspecified 155051272 [facility] 03/26/2024 Active Acute cough 52586893 [facility] 03/26/2024 Active Pneumonia, unspecified organism 054719541 [facility] 4 Active ENCOUNTERS Encounter Diagnosis Code Code System Date Stat us Other asthma 146161188 [facility] 04/01/2024 Active Essential (primary) hypertension 52447656 [facility] 03/17 Active Pneumonia, unspecified organism 605198967 [facility] 04/01 Active IMMUNIZATIONS * None VITAL SIGNS Code Code System Vitals Name Date Value and Un its 8462-4 [facility] Blood Pressure-Diastolic 04/01/2024 82 mmHg 8480-6 [facility] Blood Pressure-Systolic 04/01/2024 1 50 mmHg 8867-4 [facility] Heart Rate 04/01/2024 78 /min 9279-1 [facility] Respiratory Rate 04/01/2024 16 /min 8310-5 [facility] Body Temperature 04/01/2024 98.6 F 54608-9 [facility] Oxygen Saturation 04/01/2024 95 % SOCIAL HISTORY * None PROCEDURES Code Code System Procedure Date Status Notes 43768 Cpt4 Administer Nebul izer Treatment 04/01/2024 [facility] Therapeutic nebulizer therapy (treatment of airway obstruction).Nebulizer session 1: Medication: Albuterol and Ipratropium, 1 unit dose (3mL of 0.5mg and 3.0mg/3mL solution), expiration date: 11/16/2025, acoustical engineer lot #: [id number], brand name: DuoNeb, NDC #: [id number].Patient was observed for 5 minutes. Patient tolerated procedure well. Patient left room without difficulty.O2 Saturation: 95%. J7620 Cpt4 Administer Nebul izer Treatment 04/01/2024 completed Abram Cobill - 04/01/2024 Therapeutic nebulizer therapy (treatment of airway obstruction).Nebulizer session 1: Medication: Albuterol and Ipratropium, 1 unit dose (3mL of 0.5mg and 3.0mg/3mL solution), expiration date: 11/16/2025, acoustical engineer lot #: [id number], brand name: DuoNeb, NDC #: [id number].Patient was observed for 5 minutes. Patient tolerated [...]
== END 2024-11-09 10:39 | disposition home or self-care (01) ==
PROVIDERS: PCP Internal Medicine; Visit Provider Orthopaedic Surgery
DX: M17.0 Bilateral primary osteoarthritis of knee (principal)
CPT/HCPCS: 20610

== ENCOUNTER → 2024-11-09 10:13 | Outpatient (BNVA) | payer MEDICARE, SELFPAY | PROVIDERS: PCP Internal Medicine; Visit Provider Orthopaedic Surgery | DX: M17.0 Bilateral primary osteoarthritis of knee (principal) | CPT/HCPCS: 20610; J2003; J7323 ==

== ENCOUNTER 2024-11-16 10:11 | Outpatient (AMB) | payer MEDICARE, SELFPAY ==
--- OUTSIDE RECORDS SUMMARY | 2024-11-16 10:14 | XMS_ITS ---
Author Organization [facility], Address 5 [facility] [place] [address] Care Team Providers Care Acute Care Occupational Therapist Name Role Phone Flakita Lott [facility] [phone] ALLERGIES, ADVERSE REACTIONS, ALERTS None MEDICATIONS Medication Code Code System Start Date Stop Date Route Dosage Directions Fill Instructions lisinopril RxNorm 11/12/20 23 1 azithromycin 003555 RxNorm 4 oral 1 prednisone 696234 RxNorm 4 oral 3 amoxicillin-pot clavulanate 414430 RxNorm 4 oral 1 Caltrate with Vitamin D3 RxNorm 11/12/20 23 1 pravastatin sodium RxNorm 11/12/20 23 1 PROBLEMS Problem Name Code Code System Start Date End Date Stat us Essential (primary) hypertension 91532019 [facility] Active Other hyperlipidemia 2853945 [facility] Active Other specified arthritis, unspecified site 0308242 [facility] Active Other asthma 345564722 [facility] Active Acute pharyngitis, unspecified 690955065 [facility] 03/26/2024 Active Acute cough 21915272 [facility] 03/26/2024 Active Pneumonia, unspecified organism 000831796 [facility] 4 Active ENCOUNTERS Encounter Diagnosis Code Code System Date Stat us Other asthma 120495808 [facility] 04/01/2024 Active Essential (primary) hypertension 00974097 [facility] 03/17 Active Pneumonia, unspecified organism 034983135 [facility] 04/01 Active IMMUNIZATIONS * None VITAL SIGNS Code Code System Vitals Name Date Value and Un its 8462-4 [facility] Blood Pressure-Diastolic 04/01/2024 82 mmHg 8480-6 [facility] Blood Pressure-Systolic 04/01/2024 1 50 mmHg 8867-4 [facility] Heart Rate 04/01/2024 78 /min 9279-[address] [facility] Respiratory Rate 04/01/2024 16 /min 8310-[address] [facility] Body Temperature 04/01/2024 98.6 F 67830-[address] [facility] Oxygen Saturation 04/01/2024 95 % SOCIAL HISTORY * None PROCEDURES Code Code System Procedure Date Status Notes 42805 Cpt4 Administer Nebul izer Treatment 04/01/2024 [facility] Therapeutic nebulizer therapy (treatment of airway obstruction).Nebulizer session 1: Medication: Albuterol and Ipratropium, 1 unit dose (3mL of 0.5mg and 3.0mg/3mL solution), expiration date: 11/16/2025, local company refrigerated truck driver lot #: [id number], brand name: DuoNeb, NDC #: [id number].Patient was observed for 5 minutes. Patient tolerated procedure well. Patient left room without difficulty.O2 Saturation: 95%. J7620 Cpt4 Administer Nebul izer Treatment 04/01/2024 completed Abram Cobill - 04/01/2024 Therapeutic nebulizer therapy (treatment of airway obstruction).Nebulizer session 1: Medication: Albuterol and Ipratropium, 1 unit dose (3mL of 0.5mg and 3.0mg/3mL solution), expiration date: 11/16/2025, local company refrigerated truck driver lot #: [id number], brand name: DuoNeb, NDC #: [id number].Patient was observed for 5 minutes. Patient tolerated [...]
--- OUTSIDE RECORDS SUMMARY | 2024-11-16 10:14 | XMS_ITS ---
Author Organization [facility], Address [address] [facility] [place] [address] Care Team Providers Care Wire Twister Name Role Phone Flakita Lott [facility] [phone] ALLERGIES, ADVERSE REACTIONS, ALERTS None MEDICATIONS Medication Code Code System Start Date Stop Date Route Dosage Directions Fill Instructions lisinopril RxNorm 11/12/20 23 1 azithromycin 953049 RxNorm 4 oral 1 prednisone 701209 RxNorm 4 oral 3 amoxicillin-pot clavulanate 806991 RxNorm 4 oral 1 Caltrate with Vitamin D3 RxNorm 11/12/20 23 1 pravastatin sodium RxNorm 11/12/20 23 1 PROBLEMS Problem Name Code Code System Start Date End Date Stat us Essential (primary) hypertension 11196500 [facility] Active Other hyperlipidemia 9937574 [facility] Active Other specified arthritis, unspecified site 4522992 [facility] Active Other asthma 094083641 [facility] Active Acute pharyngitis, unspecified 167412142 [facility] 03/26/2024 Active Acute cough 24442487 [facility] 03/26/2024 Active Pneumonia, unspecified organism 876554964 [facility] 4 Active ENCOUNTERS Encounter Diagnosis Code Code System Date Stat us Other asthma 476107681 [facility] 03/31/2024 Active Pneumonia, unspecified organism 456058141 [facility] 03/31 Active IMMUNIZATIONS * None VITAL SIGNS Code Code System Vitals Name Date Value and Un its 8462-4 [facility] Blood Pressure-Diastolic 03/31/2024 84 mmHg 8480-6 [facility] Blood Pressure-Systolic 03/31/2024 1 44 mmHg 8867-4 [facility] Heart Rate 03/31/2024 77 /min 9279-1 [facility] Respiratory Rate 03/31/2024 19 /min 8310-5 [facility] Body Temperature 03/31/2024 97.1 F 01513-5 [facility] Oxygen Saturation 03/31/2024 94 % SOCIAL HISTORY * None PROCEDURES Code Code System Procedure Date Status Notes [id number] [facility]4 Administer Nebul izer Treatment 03/31/2024 completed Abram Montgomeryill - 03/31/2024 Therapeutic nebulizer therapy (treatment of airway obstruction).Pulse: 77/min. O2 Saturation: 94%.Nebulizer session 1: Medication: Albuterol and Ipratropium, 1 unit dose (3mL of 0.5mg and 3.0mg/3mL solution), expiration date: 09/16/2025, sporting goods sales associate lot #: [id number], NDC #: 2865-2909-31.Patient was observed for 10 minutes.Nebulizer session 2: Medication: Albuterol and Ipratropium, 1 unit dose (3mL of 0.5mg and 3.0mg/3mL solution), expiration date: 11/15/2025, sporting goods sales associate lot #: [id number], NDC #: 2159-5588-19.Patient was observed for 10 minutes. Patient tolerated [...] patient left room ambulating without difficulty. J7620 [facility]4 Administer Nebul izer Treatment 03/31/2024 completed Abram Montgomeryill - 03/31/2024 Therapeutic nebulizer therapy (treatment of airway obstruction).Pulse: 77/min. O2 Saturation: 94%.Nebulizer session 1: Medication: Albuterol and Ipratropium, 1 unit dose (3mL of 0.5mg and 3.0mg/3mL solution), expiration date: 09/16/2025, sporting goods sales associate lot #: [id number], NDC #: 1265-3280-80.Patient was observed for 10 minutes.Nebulizer session 2: Medication: Albuterol and Ipratropium, 1 unit dose (3mL of 0.5mg and 3.0mg/3mL solution), expiration date: 11/15/2025, sporting goods sales associate lot #: [id number], NDC #: 2330-5243-51.Patient was observed for 10 minutes. Patient tolerated [...] 0.5mg and 3.0mg/3mL solution), expiration date: 09/16/2025, sporting goods sales associate lot #: [id number], NDC #: 2725-4917-58.Patient was observed for 10 minutes.Nebulizer session 2: Medication: Albuterol and Ipratropium, 1 unit dose (3mL of 0.5mg and 3.0mg/3mL solution), expiration date: 11/15/2025, sporting goods sales associate lot #: [id number], NDC #: 4860-2518-87.Patient was observed for 10 minutes. Patient tolerated [...]
--- OUTSIDE RECORDS SUMMARY | 2024-11-16 10:14 | XMS_ITS ---
Author Organization [facility], Address [address] [facility] [place] [address] Care Team Providers Care Rag Sorter And Cutter Name Role Phone Flakita Lott [facility] [phone] ALLERGIES, ADVERSE REACTIONS, ALERTS None MEDICATIONS Medication Code Code System Start Date Stop Date Route Dosage Directions Fill Instructions lisinopril RxNorm 11/12/20 23 1 azithromycin 988870 RxNorm 4 oral 1 prednisone 107057 RxNorm 4 oral 3 amoxicillin-pot clavulanate 359289 RxNorm 4 oral 1 Caltrate with Vitamin D3 RxNorm 11/12/20 23 1 pravastatin sodium RxNorm 11/12/20 23 1 PROBLEMS Problem Name Code Code System Start Date End Date Stat us Essential (primary) hypertension 77699563 [facility] Active Other hyperlipidemia 8234715 [facility] Active Other specified arthritis, unspecified site 1328702 [facility] Active Other asthma 715262549 [facility] Active Acute pharyngitis, unspecified 533159156 [facility] 03/26/2024 Active Acute cough 45921645 [facility] 03/26/2024 Active Pneumonia, unspecified organism 632965363 [facility] 4 Active ENCOUNTERS Encounter Diagnosis Code Code System Date Stat us Other asthma 874260557 [facility] 03/31/2024 Active Pneumonia, unspecified organism 389611581 [facility] 03/31 Active IMMUNIZATIONS * None VITAL SIGNS Code Code System Vitals Name Date Value and Un its 8462-4 [facility] Blood Pressure-Diastolic 03/31/2024 84 mmHg 8480-6 [facility] Blood Pressure-Systolic 03/31/2024 1 44 mmHg 8867-4 [facility] Heart Rate 03/31/2024 77 /min 9279-1 [facility] Respiratory Rate 03/31/2024 19 /min 8310-5 [facility] Body Temperature 03/31/2024 97.1 F 93826-9 [facility] Oxygen Saturation 03/31/2024 94 % SOCIAL HISTORY * None PROCEDURES Code Code System Procedure Date Status Notes 82300 [facility]4 Administer Nebul izer Treatment 03/31/2024 completed Abram Montgomeryill - 03/31/2024 Therapeutic nebulizer therapy (treatment of airway obstruction).Pulse: 77/min. O2 Saturation: 94%.Nebulizer session 1: Medication: Albuterol and Ipratropium, 1 unit dose (3mL of 0.5mg and 3.0mg/3mL solution), expiration date: 09/16/2025, import coordinator lot #: [id number], NDC #: 4779-4506-35.Patient was observed for 10 minutes.Nebulizer session 2: Medication: Albuterol and Ipratropium, 1 unit dose (3mL of 0.5mg and 3.0mg/3mL solution), expiration date: 11/15/2025, import coordinator lot #: [id number], NDC #: 0669-2262-83.Patient was observed for 10 minutes. Patient tolerated [...] patient left room ambulating without difficulty. J7620 [facility]4 Administer Nebul izer Treatment 03/31/2024 completed Abram Montgomeryill - 03/31/2024 Therapeutic nebulizer therapy (treatment of airway obstruction).Pulse: 77/min. O2 Saturation: 94%.Nebulizer session 1: Medication: Albuterol and Ipratropium, 1 unit dose (3mL of 0.5mg and 3.0mg/3mL solution), expiration date: 09/16/2025, import coordinator lot #: [id number], NDC #: 3535-8012-68.Patient was observed for 10 minutes.Nebulizer session 2: Medication: Albuterol and Ipratropium, 1 unit dose (3mL of 0.5mg and 3.0mg/3mL solution), expiration date: 11/15/2025, import coordinator lot #: [id number], NDC #: 2492-4197-48.Patient was observed for 10 minutes. Patient tolerated [...] 0.5mg and 3.0mg/3mL solution), expiration date: 09/16/2025, import coordinator lot #: [id number], NDC #: 2046-6951-23.Patient was observed for 10 minutes.Nebulizer session 2: Medication: Albuterol and Ipratropium, 1 unit dose (3mL of 0.5mg and 3.0mg/3mL solution), expiration date: 11/15/2025, import coordinator lot #: [id number], NDC #: 5403-1121-60.Patient was observed for 10 minutes. Patient tolerated [...]
--- OUTSIDE RECORDS SUMMARY | 2024-11-16 10:14 | XMS_ITS ---
Author Organization [facility], Address [address] [facility] [place] [address] Care Team Providers Care Assistant City Attorney Name Role Phone Flakita Lott [facility] [phone] ALLERGIES, ADVERSE REACTIONS, ALERTS None MEDICATIONS Medication Code Code System Start Date Stop Date Route Dosage Directions Fill Instructions lisinopril RxNorm 11/12/20 23 1 azithromycin 656472 RxNorm 4 oral 1 prednisone 184591 RxNorm 4 oral 3 amoxicillin-pot clavulanate 982135 RxNorm 4 oral 1 Caltrate with Vitamin D3 RxNorm 11/12/20 23 1 pravastatin sodium RxNorm 11/12/20 23 1 PROBLEMS Problem Name Code Code System Start Date End Date Stat us Essential (primary) hypertension 28340788 [facility] Active Other hyperlipidemia 7376488 [facility] Active Other specified arthritis, unspecified site 1171049 [facility] Active Other asthma 782664076 [facility] Active Acute pharyngitis, unspecified 796891649 [facility] 03/26/2024 Active Acute cough 04771268 [facility] 03/26/2024 Active Pneumonia, unspecified organism 389310152 [facility] 4 Active ENCOUNTERS Encounter Diagnosis Code Code System Date Stat us Other asthma 692131370 [facility] 03/26/2024 Active Acute pharyngitis, unspecified 419497628 [facility] 2023 Active Acute cough 49792713 [facility] 03/26/2024 Active IMMUNIZATIONS * None VITAL SIGNS Code Code System Vitals Name Date Value and Un its 8462-4 [facility] Blood Pressure-Diastolic 03/26/2024 94 mmHg 8480-6 [facility] Blood Pressure-Systolic 03/26/2024 1 49 mmHg 8867-4 [facility] Heart Rate 03/26/2024 74 /min 9279-1 [facility] Respiratory Rate 03/26/2024 16 /min 8310-5 [facility] Body Temperature 03/26/2024 97.9 F 53169-2 [facility] Oxygen Saturation 03/26/2024 98 % SOCIAL [...] breath please return.Take the cough medication as needed.Iedo-evr-upkzflr throat lozenges can be used for the [...] Assay, Amplified Probe Molecular RT-PCR / NAAT 38455 CPT 03/26/2024 Dimple/Cepheid Strep A, DNA, Amplified Probe PCR 26844 CPT 03/26/2024 GOALS * None HEALTH CONCERNS * No Health Concerns FUNCTIONAL AND COGNITIVE STATUS * None CONSULTATION NOTES * None DISCHARGE SUMMARY NOTES * None HISTORY AND PHYSICAL NOTES * None IMAGING NOTES * None LABORATORY REPORT NARRATIVE NOTES * None PATHOLOGY REPORT NARRATIVE NOTES * None PROGRESS NOTES * None
--- OUTSIDE RECORDS SUMMARY | 2024-11-16 10:14 | XMS_ITS ---
Author Organization [facility], Address [address] [facility] [place] [address] Care Team Providers Care Manufacturing Quality Engineer Name Role Phone Flakita Lott [facility] [phone] ALLERGIES, ADVERSE REACTIONS, ALERTS None MEDICATIONS Medication Code Code System Start Date Stop Date Route Dosage Directions Fill Instructions lisinopril RxNorm 11/12/20 23 1 azithromycin 602358 RxNorm 4 oral 1 prednisone 245841 RxNorm 4 oral 3 amoxicillin-pot clavulanate 184278 RxNorm 4 oral 1 Caltrate with Vitamin D3 RxNorm 11/12/20 23 1 pravastatin sodium RxNorm 11/12/20 23 1 PROBLEMS Problem Name Code Code System Start Date End Date Stat us Essential (primary) hypertension 06252558 [facility] Active Other hyperlipidemia 4850436 [facility] Active Other specified arthritis, unspecified site 7854647 [facility] Active Other asthma 691762955 [facility] Active Acute pharyngitis, unspecified 066997234 [facility] 03/26/2024 Active Acute cough 52482351 [facility] 03/26/2024 Active Pneumonia, unspecified organism 136917887 [facility] 4 Active ENCOUNTERS Encounter Diagnosis Code Code System Date Stat us Other asthma 218877127 [facility] 03/26/2024 Active Acute pharyngitis, unspecified 874333264 [facility] 2023 Active Acute cough 41017103 [facility] 03/26/2024 Active IMMUNIZATIONS * None VITAL SIGNS Code Code System Vitals Name Date Value and Un its 8462-4 [facility] Blood Pressure-Diastolic 03/26/2024 94 mmHg 8480-6 [facility] Blood Pressure-Systolic 03/26/2024 1 49 mmHg 8867-4 [facility] Heart Rate 03/26/2024 74 /min 9279-1 [facility] Respiratory Rate 03/26/2024 16 /min 8310-5 [facility] Body Temperature 03/26/2024 97.9 F 64765-3 [facility] Oxygen Saturation 03/26/2024 98 % SOCIAL [...] breath please return.Take the cough medication as needed.Iadm-hsz-kxwiszw throat lozenges can be used for the [...] Assay, Amplified Probe Molecular RT-PCR / NAAT 80138 CPT 03/26/2024 Dimple/Cepheid Strep A, DNA, Amplified Probe PCR 74266 CPT 03/26/2024 GOALS * None HEALTH CONCERNS * No Health Concerns FUNCTIONAL AND COGNITIVE STATUS * None CONSULTATION NOTES * None DISCHARGE SUMMARY NOTES * None HISTORY AND PHYSICAL NOTES * None IMAGING NOTES * None LABORATORY REPORT NARRATIVE NOTES * None PATHOLOGY REPORT NARRATIVE NOTES * None PROGRESS NOTES * None
--- OUTSIDE RECORDS SUMMARY | 2024-11-16 10:14 | XMS_ITS ---
Author Organization [facility], Address [address] [facility] [place] [address] Care Team Providers Care Manometer Technician Name Role Phone Flakita Lott [facility] [phone] ALLERGIES, ADVERSE REACTIONS, ALERTS None MEDICATIONS Medication Code Code System Start Date Stop Date Route Dosage Directions Fill Instructions lisinopril RxNorm 11/12/20 23 1 azithromycin 590596 RxNorm 4 oral 1 prednisone 003695 RxNorm 4 oral 3 amoxicillin-pot clavulanate 160308 RxNorm 4 oral 1 Caltrate with Vitamin D3 RxNorm 11/12/20 23 1 pravastatin sodium RxNorm 11/12/20 23 1 PROBLEMS Problem Name Code Code System Start Date End Date Stat us Essential (primary) hypertension 00488941 [facility] Active Other hyperlipidemia 8650457 [facility] Active Other specified arthritis, unspecified site 9413651 [facility] Active Other asthma 781955381 [facility] Active Acute pharyngitis, unspecified 765222224 [facility] 03/26/2024 Active Acute cough 23092662 [facility] 03/26/2024 Active Pneumonia, unspecified organism 435035494 [facility] 4 Active ENCOUNTERS Encounter Diagnosis Code Code System Date Stat us Other asthma 495583025 [facility] 04/01/2024 Active Essential (primary) hypertension 89135071 [facility] 03/17 Active Pneumonia, unspecified organism 914534122 [facility] 04/01 Active IMMUNIZATIONS * None VITAL SIGNS Code Code System Vitals Name Date Value and Un its 8462-4 [facility] Blood Pressure-Diastolic 04/01/2024 82 mmHg 8480-6 [facility] Blood Pressure-Systolic 04/01/2024 1 50 mmHg 8867-4 [facility] Heart Rate 04/01/2024 78 /min 9279-1 [facility] Respiratory Rate 04/01/2024 16 /min 8310-5 [facility] Body Temperature 04/01/2024 98.6 F 71099-9 [facility] Oxygen Saturation 04/01/2024 95 % SOCIAL HISTORY * None PROCEDURES Code Code System Procedure Date Status Notes 50159 Cpt4 Administer Nebul izer Treatment 04/01[facility]2024 [facility] Therapeutic nebulizer therapy (treatment of airway obstruction).Nebulizer session 1: Medication: Albuterol and Ipratropium, 1 unit dose (3mL of 0.5mg and 3.0mg/3mL solution), expiration date: 11/16/2025, accounts receivable coordinator lot #: [id number], brand name: DuoNeb, NDC #: [id number].Patient was observed for 5 minutes. Patient tolerated procedure well. Patient left room without difficulty.O2 Saturation: 95%. J7620 [facility]4 Administer Nebul izer Treatment 04/01/2024 completed Abram Cobill - 04/01/2024 Therapeutic nebulizer therapy (treatment of airway obstruction).Nebulizer session 1: Medication: Albuterol and Ipratropium, 1 unit dose (3mL of 0.5mg and 3.0mg/3mL solution), expiration date: 11/16/2025, accounts receivable coordinator lot #: [id number], brand name: DuoNeb, NDC #: [id number].Patient was observed for 5 minutes. Patient tolerated [...] Type Description Date APPOINTMENT If not feeling vea r in 3 day(s), please see your [...]
--- NOTE | 2024-11-16 10:15 | MHC.OFFVIS ---
Vital Signs 11/16/24 10:20 Height 5 ft Weight 181 lb BMI 35.3 Intake Visit Reasons: INJ-Bilateral knee Euflexxa #3 Intake Note: Lisbeth is a 79 year old female who presents today for her last dose of bilateral knee Euflexxa series. She reports mild intermittent discomfort in both of her knees. She denies any fevers or chills. Allergies No Known Allergies Allergy (Verified 11/16/24 10:21) Medication List - Last Reconciled 11/16/24 by Enzo Hunter MD calcium carbonate-vitamin D3 600 mg-20 mcg (800 unit) (Caltrate with Vitamin D3) 1 tab PO DAILY lisinopril 20 mg PO DAILY PFSH Medical History Hypertension Anemia Surgical History Hx of cholecystectomy Social History (Updated 09/28/24 @ 13:55 by NICKO Multani) Alcohol intake: never Patient Tobacco Use Status: Never used Tobacco Current occupational status: retired Current occupation: Right hand dominant Physical Exam Vital Signs: BMI result Body Mass Index 35.3 Extrem Other: Bilateral knee examination shows minimal effusions, palpable crepitus with range of motion, pain with range of motion, no instability Office Procedures AMB Joint Injection/Aspiration Joint Injection/Aspiration Primary Site: left knee Prep: site was prepped using aseptic technique Injected: 20 mg of (Euflexxa viscosupplementation) and 1% plain lidocaine Procedure: The patient tolerated the procedure well Coding 91395 - Large joint Procedure code (CPT) selection complete AMB Joint Injection/Aspiration Joint Injection/Aspiration Primary Site: right knee Prep: site was prepped using aseptic technique Injected: 20 mg of (Euflexxa viscosupplementation) and 1% plain lidocaine Procedure: The patient tolerated the procedure well Coding 10745 - Large joint Procedure code (CPT) selection complete Results Reviewed Results Reviewed: X-rays of the patient's bilateral knees taken previously show joint space narrowing, subchondral sclerosis, no acute bony abnormalities Assessment & Plan Assessment & Plan (1) Osteoarthritis of left knee: Code(s): M17.12 - Unilateral primary osteoarthritis, left knee Category: Medical (2) Osteoarthritis of right knee: Code(s): M17.11 - Unilateral primary osteoarthritis, right knee Category: Medical Plan Ms. Blackman presents with bilateral knee pains due to osteoarthritis. The risks and benefits of a 3rd set of Euflexxa viscosupplementation injections were discussed at length with the patient. The patient wished to proceed. She tolerated the injections well. She will continue with her home exercise program. She will contact me prior to her follow-up appointment in 3 months should any questions or concerns arise. Feel free to call me at any time should questions regarding her orthopedic management arise. Orders: Orders AMB Joint Injection/Aspiration Today M17.12 - Unilateral primary osteoarthritis, left knee AMB Joint Injection/Aspiration Today M17.11 - Unilateral primary osteoarthritis, right knee Coding Level of Care Code Procedure Only Diagnoses Osteoarthritis of left knee M17.12 Osteoarthritis of right knee M17.11 CPT Codes Coding - 92681 Large joint: 84977 - Large joint ([id number]) Coding - 12220 Large joint: 72416 - Large joint ([id number])
[2024-11-16 10:20] VITALS: BMI 35.3
== END 2024-11-16 10:46 | disposition home or self-care (01) ==
PROVIDERS: PCP Internal Medicine; Visit Provider Orthopaedic Surgery
DX: M17.0 Bilateral primary osteoarthritis of knee (principal)
CPT/HCPCS: 20610

== ENCOUNTER → 2024-11-16 10:11 | Outpatient (BNVA) | payer MEDICARE, SELFPAY | PROVIDERS: PCP Internal Medicine; Visit Provider Orthopaedic Surgery | DX: M17.0 Bilateral primary osteoarthritis of knee (principal) | CPT/HCPCS: 20610; J2003; J7323 ==

== ENCOUNTER 2024-11-22 08:00 | Outpatient (REF) | payer MEDICARE, SELFPAY | END 2024-11-22 08:01 | disposition home or self-care (01) | LOC: HO.LNP 08:00 | PROVIDERS: Pathology Anatomic Pathology & Clinical Pathology; PCP Internal Medicine; Visit Provider Obstetrics & Gynecology | DX: N95.0 Postmenopausal bleeding (principal) | CPT/HCPCS: 58100; 81288; 88305; 88341; 88342; 88360; 99212 ==

== ENCOUNTER 2024-11-22 08:00 | Outpatient (AMB) | payer MEDICARE, SELFPAY ==
--- OUTSIDE RECORDS SUMMARY | 2024-11-22 08:02 | XMS_ITS ---
Author Organization [facility], Address [address] [facility] [place] [address] Care Team Providers Care Construction Foreman Name Role Phone Flakita Lott [facility] [phone] ALLERGIES, ADVERSE REACTIONS, ALERTS None MEDICATIONS Medication Code Code System Start Date Stop Date Route Dosage Directions Fill Instructions lisinopril RxNorm 11/12/20 23 1 azithromycin 453962 RxNorm 4 oral 1 prednisone 541438 RxNorm 4 oral 3 amoxicillin-pot clavulanate 204490 RxNorm 4 oral 1 Caltrate with Vitamin D3 RxNorm 11/12/20 23 1 pravastatin sodium RxNorm 11/12/20 23 1 PROBLEMS Problem Name Code Code System Start Date End Date Stat us Essential (primary) hypertension 85165542 [facility] Active Other hyperlipidemia 0197724 [facility] Active Other specified arthritis, unspecified site 0325747 [facility] Active Other asthma 930066565 [facility] Active Acute pharyngitis, unspecified 028806895 [facility] 03/26/2024 Active Acute cough 96129354 [facility] 03/26/2024 Active Pneumonia, unspecified organism 931494153 [facility] 4 Active ENCOUNTERS Encounter Diagnosis Code Code System Date Stat us Other asthma 324917619 [facility] 03/26/2024 Active Acute pharyngitis, unspecified 241966842 [facility] 2023 Active Acute cough 73052917 [facility] 03/26/2024 Active IMMUNIZATIONS * None VITAL SIGNS Code Code System Vitals Name Date Value and Un its 8462-4 [facility] Blood Pressure-Diastolic 03/26/2024 94 mmHg 8480-6 [facility] Blood Pressure-Systolic 03/26/2024 1 49 mmHg 8867-4 [facility] Heart Rate 03/26/2024 74 /min 9279-1 [facility] Respiratory Rate 03/26/2024 16 /min 8310-5 [facility] Body Temperature 03/26/2024 97.9 F 04098-0 [facility] Oxygen Saturation 03/26/2024 98 % [...] breath please return.Take the cough medication as needed.Ayaz-nka-vmtezwm throat lozenges can be used for the [...] Assay, Amplified Probe Molecular RT-PCR / NAAT 29935 CPT 03/26/2024 Dimple/Cepheid Strep A, DNA, Amplified Probe PCR 89714 CPT 03/26/2024 GOALS * None HEALTH CONCERNS * No Health Concerns FUNCTIONAL AND COGNITIVE STATUS * None CONSULTATION NOTES * None DISCHARGE SUMMARY NOTES * None HISTORY AND PHYSICAL NOTES * None IMAGING NOTES * None LABORATORY REPORT NARRATIVE NOTES * None PATHOLOGY REPORT NARRATIVE NOTES * None PROGRESS NOTES * None
--- OUTSIDE RECORDS SUMMARY | 2024-11-22 08:02 | XMS_ITS ---
Author Organization [facility], Address [address] [facility] [place] [address] Care Team Providers Care Support Architect Name Role Phone Flakita Lott [facility] [phone] ALLERGIES, ADVERSE REACTIONS, ALERTS None MEDICATIONS Medication Code Code System Start Date Stop Date Route Dosage Directions Fill Instructions lisinopril RxNorm 11/12/20 23 1 azithromycin 438810 RxNorm 4 oral 1 prednisone 983495 RxNorm 4 oral 3 amoxicillin-pot clavulanate 682554 RxNorm 4 oral 1 Caltrate with Vitamin D3 RxNorm 11/12/20 23 1 pravastatin sodium RxNorm 11/12/20 23 1 PROBLEMS Problem Name Code Code System Start Date End Date Stat us Essential (primary) hypertension 87270367 [facility] Active Other hyperlipidemia 4109741 [facility] Active Other specified arthritis, unspecified site 8974199 [facility] Active Other asthma 578010114 [facility] Active Acute pharyngitis, unspecified 600570907 [facility] 03/26/2024 Active Acute cough 00314880 [facility] 03/26/2024 Active Pneumonia, unspecified organism 126746897 [facility] 4 Active ENCOUNTERS Encounter Diagnosis Code Code System Date Stat us Other asthma 121900286 [facility] 03/31/2024 Active Pneumonia, unspecified organism 325921642 [facility] 03/31 Active IMMUNIZATIONS * None VITAL SIGNS Code Code System Vitals Name Date Value and Un its 8462-4 [facility] Blood Pressure-Diastolic 03/31/2024 84 mmHg 8480-6 [facility] Blood Pressure-Systolic 03/31/2024 1 44 mmHg 8867-4 [facility] Heart Rate 03/31/2024 77 /min 9279-1 [facility] Respiratory Rate 03/31/2024 19 /min 8310-5 [facility] Body Temperature 03/31/2024 97.1 F 87571-0 [facility] Oxygen Saturation 03/31/2024 94 % SOCIAL HISTORY * None PROCEDURES Code Code System Procedure Date Status Notes 75319 [facility]4 Administer Nebul izer Treatment 03/31/2024 completed Abram Montgomeryill - 03/31/2024 Therapeutic nebulizer therapy (treatment of airway obstruction).Pulse: 77/min. O2 Saturation: 94%.Nebulizer session 1: Medication: Albuterol and Ipratropium, 1 unit dose (3mL of 0.5mg and 3.0mg/3mL solution), expiration date: 09/16/2025, button spindler lot #: [id number], NDC #: 1096-9860-89.Patient was observed for 10 minutes.Nebulizer session 2: Medication: Albuterol and Ipratropium, 1 unit dose (3mL of 0.5mg and 3.0mg/3mL solution), expiration date: 11/15/2025, button spindler lot #: [id number], NDC #: 7446-2244-16.Patient was observed for 10 minutes. Patient tolerated [...] patient left room ambulating without difficulty. J7620 [facility]4 Administer Nebul izer Treatment 03/31/2024 completed Abram Montgomeryill - 03/31/2024 Therapeutic nebulizer therapy (treatment of airway obstruction).Pulse: 77/min. O2 Saturation: 94%.Nebulizer session 1: Medication: Albuterol and Ipratropium, 1 unit dose (3mL of 0.5mg and 3.0mg/3mL solution), expiration date: 09/16/2025, button spindler lot #: [id number], NDC #: [id number].Patient was observed for 10 minutes.Nebulizer session 2: Medication: Albuterol and Ipratropium, 1 unit dose (3mL of 0.5mg and 3.0mg/3mL solution), expiration date: 11/15/2025, button spindler lot #: [id number], NDC #: [phone].Patient was observed for 10 minutes. Patient tolerated [...] 0.5mg and 3.0mg/3mL solution), expiration date: 09/16/2025, button spindler lot #: [id number], NDC #: [phone].Patient was observed for 10 minutes.Nebulizer session 2: Medication: Albuterol and Ipratropium, 1 unit dose (3mL of 0.5mg and 3.0mg/3mL solution), expiration date: 11/15/2025, button spindler lot #: [id number], NDC #: 4933-2183-94.Patient was observed for 10 minutes. Patient tolerated [...]
--- OUTSIDE RECORDS SUMMARY | 2024-11-22 08:02 | XMS_ITS ---
Author Organization [facility], Address [address] [facility] [place] [address] Care Team Providers Care Water Pollution Scientist Name Role Phone Flakita Lott [facility] [phone] ALLERGIES, ADVERSE REACTIONS, ALERTS None MEDICATIONS Medication Code Code System Start Date Stop Date Route Dosage Directions Fill Instructions lisinopril RxNorm 11/12/20 23 1 azithromycin 121490 RxNorm 4 oral 1 prednisone 305149 RxNorm 4 oral 3 amoxicillin-pot clavulanate 042958 RxNorm 4 oral 1 Caltrate with Vitamin D3 RxNorm 11/12/20 23 1 pravastatin sodium RxNorm 11/12/20 23 1 PROBLEMS Problem Name Code Code System Start Date End Date Stat us Essential (primary) hypertension 67101865 [facility] Active Other hyperlipidemia 5986481 [facility] Active Other specified arthritis, unspecified site 3642904 [facility] Active Other asthma 669984308 [facility] Active Acute pharyngitis, unspecified 927948617 [facility] 03/26/2024 Active Acute cough 68808085 [facility] 03/26/2024 Active Pneumonia, unspecified organism 510342912 [facility] 4 Active ENCOUNTERS Encounter Diagnosis Code Code System Date Stat us Other asthma 570817173 [facility] 04/01/2024 Active Essential (primary) hypertension 44266403 [facility] 03/17 Active Pneumonia, unspecified organism 251794617 [facility] 04/01 Active IMMUNIZATIONS * None VITAL SIGNS Code Code System Vitals Name Date Value and Un its 8462-4 [facility] Blood Pressure-Diastolic 04/01/2024 82 mmHg 8480-6 [facility] Blood Pressure-Systolic 04/01/2024 1 50 mmHg 8867-4 [facility] Heart Rate 04/01/2024 78 /min 9279-1 [facility] Respiratory Rate 04/01/2024 16 /min 8310-5 [facility] Body Temperature 04/01/2024 98.6 F 31236-8 [facility] Oxygen Saturation 04/01/2024 95 % SOCIAL HISTORY * None PROCEDURES Code Code System Procedure Date Status Notes 03405 Cpt4 Administer Nebul izer Treatment 04/01[facility]2024 [facility] Therapeutic nebulizer therapy (treatment of airway obstruction).Nebulizer session 1: Medication: Albuterol and Ipratropium, 1 unit dose (3mL of 0.5mg and 3.0mg/3mL solution), expiration date: 11/16/2025, paymaster of purses lot #: [id number], brand name: DuoNeb, NDC #: [id number].Patient was observed for 5 minutes. Patient tolerated procedure well. Patient left room without difficulty.O2 Saturation: 95%. J7620 Cpt4 Administer Nebul izer Treatment 04/01/2024 completed Abram Cobill - 04/01/2024 Therapeutic nebulizer therapy (treatment of airway obstruction).Nebulizer session 1: Medication: Albuterol and Ipratropium, 1 unit dose (3mL of 0.5mg and 3.0mg/3mL solution), expiration date: 11/16/2025, paymaster of purses lot #: [id number], brand name: DuoNeb, NDC #: [id number].Patient was observed for 5 minutes. Patient tolerated [...]
--- OUTSIDE RECORDS SUMMARY | 2024-11-22 08:03 | XMS_ITS ---
Author Organization [facility], Address [address] [facility] [place] [address] Care Team Providers Care Departmental Shipping Clerk Name Role Phone Flakita Lott [facility] [phone] ALLERGIES, ADVERSE REACTIONS, ALERTS None MEDICATIONS Medication Code Code System Start Date Stop Date Route Dosage Directions Fill Instructions lisinopril RxNorm 11/12/20 23 1 azithromycin 021508 RxNorm 4 oral 1 prednisone 572441 RxNorm 4 oral 3 amoxicillin-pot clavulanate 316260 RxNorm 4 oral 1 Caltrate with Vitamin D3 RxNorm 11/12/20 23 1 pravastatin sodium RxNorm 11/12/20 23 1 PROBLEMS Problem Name Code Code System Start Date End Date Stat us Essential (primary) hypertension 16694076 [facility] Active Other hyperlipidemia 3026809 [facility] Active Other specified arthritis, unspecified site 2928356 [facility] Active Other asthma 750696246 [facility] Active Acute pharyngitis, unspecified 597351443 [facility] 03/26/2024 Active Acute cough 09184549 [facility] 03/26/2024 Active Pneumonia, unspecified organism 563126606 [facility] 4 Active ENCOUNTERS Encounter Diagnosis Code Code System Date Stat us Other asthma 419948268 [facility] 03/26/2024 Active Acute pharyngitis, unspecified 531876763 [facility] 2023 Active Acute cough 71383872 [facility] 03/26/2024 Active IMMUNIZATIONS * None VITAL SIGNS Code Code System Vitals Name Date Value and Un its 8462-4 [facility] Blood Pressure-Diastolic 03/26/2024 94 mmHg 8480-6 [facility] Blood Pressure-Systolic 03/26/2024 1 49 mmHg 8867-4 [facility] Heart Rate 03/26/2024 74 /min 9279-1 [facility] Respiratory Rate 03/26/2024 16 /min 8310-5 [facility] Body Temperature 03/26/2024 97.9 F 63667-3 [facility] Oxygen Saturation 03/26/2024 98 % SOCIAL HISTORY [...] breath please return.Take the cough medication as needed.Ocda-bmw-ckwfcrj throat lozenges can be used for the [...] Assay, Amplified Probe Molecular RT-PCR / NAAT 27724 CPT 03/26/2024 Dimple/Cepheid Strep A, DNA, Amplified Probe PCR 60325 CPT 03/26/2024 GOALS * None HEALTH CONCERNS * No Health Concerns FUNCTIONAL AND COGNITIVE STATUS * None CONSULTATION NOTES * None DISCHARGE SUMMARY NOTES * None HISTORY AND PHYSICAL NOTES * None IMAGING NOTES * None LABORATORY REPORT NARRATIVE NOTES * None PATHOLOGY REPORT NARRATIVE NOTES * None PROGRESS NOTES * None
--- OUTSIDE RECORDS SUMMARY | 2024-11-22 08:03 | XMS_ITS ---
Author Organization [facility], Address [address] [facility] [place] [address] Care Team Providers Care Silk Brusher Name Role Phone Flakita Lott [facility] [phone] ALLERGIES, ADVERSE REACTIONS, ALERTS None MEDICATIONS Medication Code Code System Start Date Stop Date Route Dosage Directions Fill Instructions lisinopril RxNorm 11/12/20 23 1 azithromycin 655180 RxNorm 4 oral 1 prednisone 788808 RxNorm 4 oral 3 amoxicillin-pot clavulanate 782278 RxNorm 4 oral 1 Caltrate with Vitamin D3 RxNorm 11/12/20 23 1 pravastatin sodium RxNorm 11/12/20 23 1 PROBLEMS Problem Name Code Code System Start Date End Date Stat us Essential (primary) hypertension 61546399 [facility] Active Other hyperlipidemia 2880286 [facility] Active Other specified arthritis, unspecified site 0656118 [facility] Active Other asthma 797310078 [facility] Active Acute pharyngitis, unspecified 047441470 [facility] 03/26/2024 Active Acute cough 43854431 [facility] 03/26/2024 Active Pneumonia, unspecified organism 656249066 [facility] 4 Active ENCOUNTERS Encounter Diagnosis Code Code System Date Stat us Other asthma 712618311 [facility] 04/01/2024 Active Essential (primary) hypertension 69493059 [facility] 03/17 Active Pneumonia, unspecified organism 089753641 [facility] 04/01 Active IMMUNIZATIONS * None VITAL SIGNS Code Code System Vitals Name Date Value and Un its 8462-4 [facility] Blood Pressure-Diastolic 04/01/2024 82 mmHg 8480-6 [facility] Blood Pressure-Systolic 04/01/2024 1 50 mmHg 8867-4 [facility] Heart Rate 04/01/2024 78 /min 9279-1 [facility] Respiratory Rate 04/01/2024 16 /min 8310-5 [facility] Body Temperature 04/01/2024 98.6 F 84160-8 [facility] Oxygen Saturation 04/01/2024 95 % SOCIAL HISTORY * None PROCEDURES Code Code System Procedure Date Status Notes 54399 Cpt4 Administer Nebul izer [facility]/01[facility] Therapeutic nebulizer therapy (treatment of airway obstruction).Nebulizer session 1: Medication: Albuterol and Ipratropium, 1 unit dose (3mL of 0.5mg and 3.0mg/3mL solution), expiration date: 11/16/2025, corrosion prevention metal sprayer lot #: [id number], brand name: DuoNeb, NDC #: [id number].Patient was observed for 5 minutes. Patient tolerated procedure well. Patient left room without difficulty.O2 Saturation: 95%. J7620 Cpt4 Administer Nebul izer Treatment 04/01/2024 completed Abram Cobill - 04/01/2024 Therapeutic nebulizer therapy (treatment of airway obstruction).Nebulizer session 1: Medication: Albuterol and Ipratropium, 1 unit dose (3mL of 0.5mg and 3.0mg/3mL solution), expiration date: 11/16/2025, corrosion prevention metal sprayer lot #: [id number], brand name: DuoNeb, NDC #: [id number].Patient was observed for 5 minutes. Patient tolerated [...]
--- OUTSIDE RECORDS SUMMARY | 2024-11-22 08:03 | XMS_ITS ---
Author Organization [facility], Address [address] [facility] [place] [address] Care Team Providers Care Corporate Communications Associate Name Role Phone Flakita Lott [facility] [phone] ALLERGIES, ADVERSE REACTIONS, ALERTS None MEDICATIONS Medication Code Code System Start Date Stop Date Route Dosage Directions Fill Instructions lisinopril RxNorm 11/12/20 23 1 azithromycin 409278 RxNorm 4 oral 1 prednisone 729721 RxNorm 4 oral 3 amoxicillin-pot clavulanate 489014 RxNorm 4 oral 1 Caltrate with Vitamin D3 RxNorm 11/12/20 23 1 pravastatin sodium RxNorm 11/12/20 23 1 PROBLEMS Problem Name Code Code System Start Date End Date Stat us Essential (primary) hypertension 36932885 [facility] Active Other hyperlipidemia 5370686 [facility] Active Other specified arthritis, unspecified site 1651063 [facility] Active Other asthma 806317923 [facility] Active Acute pharyngitis, unspecified 201712867 [facility] 03/26/2024 Active Acute cough 04558469 [facility] 03/26/2024 Active Pneumonia, unspecified organism 966839191 [facility] 4 Active ENCOUNTERS Encounter Diagnosis Code Code System Date Stat us Other asthma 601358815 [facility] 03/31/2024 Active Pneumonia, unspecified organism 737144209 [facility] 03/31 Active IMMUNIZATIONS * None VITAL SIGNS Code Code System Vitals Name Date Value and Un its 8462-4 [facility] Blood Pressure-Diastolic 03/31/2024 84 mmHg 8480-6 [facility] Blood Pressure-Systolic 03/31/2024 1 44 mmHg 8867-4 [facility] Heart Rate 03/31/2024 77 /min 9279-1 [facility] Respiratory Rate 03/31/2024 19 /min 8310-[address] [facility] Body Temperature 03/31/2024 97.1 F 13527-[address] [facility] Oxygen Saturation 03/31/2024 94 % SOCIAL HISTORY * None PROCEDURES Code Code System Procedure Date Status Notes 44639 [facility] Administer Nebul izer Treatment 03/31/2024 completed Abram Montgomeryill - 03/31/2024 Therapeutic nebulizer therapy (treatment of airway obstruction).Pulse: 77/min. O2 Saturation: 94%.Nebulizer session 1: Medication: Albuterol and Ipratropium, 1 unit dose (3mL of 0.5mg and 3.0mg/3mL solution), expiration date: 09/16/2025, sorting supervisor lot #: [id number], NDC #: 6229-8015-21.Patient was observed for 10 minutes.Nebulizer session 2: Medication: Albuterol and Ipratropium, 1 unit dose (3mL of 0.5mg and 3.0mg/3mL solution), expiration date: 11/15/2025, sorting supervisor lot #: [id number], NDC #: 7950-6173-89.Patient was observed for 10 minutes. Patient tolerated [...] patient left room ambulating without difficulty. J7620 [facility] Administer Nebul izer Treatment 03/31/2024 completed Abram Montgomeryill - 03/31/2024 Therapeutic nebulizer therapy (treatment of airway obstruction).Pulse: 77/min. O2 Saturation: 94%.Nebulizer session 1: Medication: Albuterol and Ipratropium, 1 unit dose (3mL of 0.5mg and 3.0mg/3mL solution), expiration date: 09/16/2025, sorting supervisor lot #: [id number], NDC #: 5028-1390-50.Patient was observed for 10 minutes.Nebulizer session 2: Medication: Albuterol and Ipratropium, 1 unit dose (3mL of 0.5mg and 3.0mg/3mL solution), expiration date: 11/15/2025, sorting supervisor lot #: [id number], NDC #: 2194-7348-24.Patient was observed for 10 minutes. Patient tolerated [...] 0.5mg and 3.0mg/3mL solution), expiration date: 09/16/2025, sorting supervisor lot #: [id number], NDC #: 1189-3446-87.Patient was observed for 10 minutes.Nebulizer session 2: Medication: Albuterol and Ipratropium, 1 unit dose (3mL of 0.5mg and 3.0mg/3mL solution), expiration date: 11/15/2025, sorting supervisor lot #: [id number], NDC #: 8976-8750-91.Patient was observed for 10 minutes. Patient tolerated [...]
--- NOTE | 2024-11-22 08:10 | MHC.OFFVIS ---
Intake Visit Reasons: EMB/u/s results Electronic Induction Hardener: Electronic Induction Hardener Present (Joana) Allergies No Known Allergies Allergy (Verified 11/22/24 08:12) HPI Comments Details: Presenting for follow-up pelvic ultrasound for postmenopausal bleeding, which was ordered on 09/27/24, done on 10/01/2024, read on 11/13/2024. Pelvic ultrasound showed the following: UTERUS: The uterus is anteverted. Size: 8 x 4.6 x 5.5 cm. Uterine mass: There is no uterine mass. Cervix: There are nabothian cysts otherwise Grossly unremarkable. Endometrium: Abnormally thickened endometrium endometrial thickness measures 1.5 cm, cannot rule out underlying pathology. Abnormal for patient's age and postmenopausal status. ADNEXA: Normal Right ovary: Not visualized Left ovary: Hypoechoic structure probably a cyst or follicle 1.3 cm. Doppler exam: Normal Doppler flow identified in both ovaries. FREE FLUID: Trace amount of free fluid. OTHER FINDINGS: None PFSH Medical History Hypertension Anemia Surgical History Hx of cholecystectomy Social History Alcohol intake: never Patient Tobacco Use Status: Never used Tobacco Current occupational status: retired Current occupation: Right hand dominant Review of Systems Const All systems reviewed & are unremarkable except as noted in HPI and below Reports as per HPI and Reports no additional complaints GI Reports no additional complaints Reports no additional complaints Office Procedures Endometrial Biopsy Details: The patient was counseled regarding the indication and benefits of endometrial sampling to rule out endometrial pathology including not limited to endometrial hyperplasia or endometrial cancer and others; The alternatives (Either do nothing vs. hysteroscopy D&C) & the risks were discussed with the patient including but not limited: pain, uterine perforation, bleeding, infection, possible injury to bladder, bowel, ureter, possible need for blood transfusion with all its possible risks. The patient verbalized understanding all questions answered and signed consent. The patient was placed into the dorsal lithotomy position; a speculum was inserted in the vagina. Using aseptic technique for the procedure, the cervix was cleansed with Betadine. The anterior lip of the cervix was grasped with a single tooth tenaculum. The uterus was sounded to 7 cm with a 4 mm Pipelle was used. Tissues samples were obtained and placed in formalin, in a patient labeled container and sent to the pathology department. At the end of the procedure, there was minimal bleeding noted The patient tolerated the procedure well and was discharged in good condition with the following instructions: Nothing in the vagina until the bleeding stops. No sex until the bleeding stops, to call if any of the following occurs: fever (>100.4), flu-like symptoms, abdominal pain, heavy bleeding, four smelling vaginal discharge. The patient was instructed to schedule a Follow up appointment in 2 weeks to discuss pathology results of the biopsy and treatment options. This note was generated with a voice recognition program. Some errors may have been overlooked during the review of this note. Sometimes these errors may affect the content or meaning of a given sentence. 18566-Qdaxzlnbdds Biopsy Assessment & Plan Assessment & Plan (1) Postmenopausal bleeding: Code(s): N95.0 - Postmenopausal bleeding Category: Medical Plan: Discussed with the patient the pelvic ultrasound findings, the endometrial stripe thickenss measured by ultrasound was more than 4mm. The negative predictive value, positive predictive value, Sensitivity, specificity of using ultrasound measurement of endometrial stripe to detecting endometrial pathology including hyperplasia , polyp or cancer were discussed with the patient. Recommended to the patient that the next step is an endometrial sampling via hysteroscopy D&C possible polypectomy versus endometrial biopsy to r/o endometrial pathology including hyperplasia or cancer. All the pros and cons risks and benefits of each approach were discussed with the patient, endometrial biopsy being less invasive, office procedure with less sensitivity and inability diagnose a polyp and removal versus hysteroscopy done under anesthesia more invasive more sensitive to endometrial cancer and possibility of diagnosing and endometrial polyp with the possibility of polypectomy. All questions were answered pt verbalized understanding and decided to proceed with endometrial biopsy. EMB done, see procedure note Orders: Orders AMB Endometrial Biopsy Today N95.0 - Postmenopausal bleeding Coding Level of Care Code Est Pt Level 3 (52078) Procedure Only Diagnoses Postmenopausal bleeding N95.0 CPT Codes Endometrial Biopsy - CPT: 29453-[facility] Biopsy ([id number])
== END 2024-11-22 09:38 | disposition home or self-care (01) ==
PROVIDERS: PCP Internal Medicine; Visit Provider Obstetrics & Gynecology
DX: N95.0 Postmenopausal bleeding (principal)
CPT/HCPCS: 58100; 99213

== ENCOUNTER 2024-11-24 12:52 | Outpatient (AMB) | payer MEDICARE, SELFPAY ==
--- OUTSIDE RECORDS SUMMARY | 2024-11-24 12:54 | XMS_ITS ---
Author Organization [facility], Address [address] [facility] [place] [address] Care Team Providers Care Check Totaler Name Role Phone Flakita Lott [facility] [phone] ALLERGIES, ADVERSE REACTIONS, ALERTS None MEDICATIONS Medication Code Code System Start Date Stop Date Route Dosage Directions Fill Instructions lisinopril RxNorm 11/12/20 23 1 azithromycin 776796 RxNorm 4 oral 1 prednisone 991965 RxNorm 4 oral 3 amoxicillin-pot clavulanate 081454 RxNorm 4 oral 1 Caltrate with Vitamin D3 RxNorm 11/12/20 23 1 pravastatin sodium RxNorm 11/12/20 23 1 PROBLEMS Problem Name Code Code System Start Date End Date Stat us Essential (primary) hypertension 24242817 [facility] Active Other hyperlipidemia 6264799 [facility] Active Other specified arthritis, unspecified site 5175098 [facility] Active Other asthma 880710915 [facility] Active Acute pharyngitis, unspecified 951605460 [facility] 03/26/2024 Active Acute cough 46734244 [facility] 03/26/2024 Active Pneumonia, unspecified organism 676414175 [facility] 4 Active ENCOUNTERS Encounter Diagnosis Code Code System Date Stat us Other asthma 289112898 [facility] 04/01/2024 Active Essential (primary) hypertension 21929653 [facility] 03/17 Active Pneumonia, unspecified organism 462496246 [facility] 04/01 Active IMMUNIZATIONS * None VITAL SIGNS Code Code System Vitals Name Date Value and Un its 8462-4 [facility] Blood Pressure-Diastolic 04/01/2024 82 mmHg 8480-6 [facility] Blood Pressure-Systolic 04/01/2024 1 50 mmHg 8867-4 [facility] Heart Rate 04/01/2024 78 /min 9279-1 [facility] Respiratory Rate 04/01/2024 16 /min 8310-5 [facility] Body Temperature 04/01/2024 98.6 F 37421-7 [facility] Oxygen Saturation 04/01/2024 95 % SOCIAL HISTORY * None PROCEDURES Code Code System Procedure Date Status Notes 01564 Cpt4 Administer Nebul izer [facility]/01[facility] Therapeutic nebulizer therapy (treatment of airway obstruction).Nebulizer session 1: Medication: Albuterol and Ipratropium, 1 unit dose (3mL of 0.5mg and 3.0mg/3mL solution), expiration date: 11/16/2025, machine shop instructor lot #: [id number], brand name: DuoNeb, NDC #: [id number].Patient was observed for 5 minutes. Patient tolerated procedure well. Patient left room without difficulty.O2 Saturation: 95%. J7620 Cpt4 Administer Nebul izer Treatment 04/01/2024 completed Abram Cobill - 04/01/2024 Therapeutic nebulizer therapy (treatment of airway obstruction).Nebulizer session 1: Medication: Albuterol and Ipratropium, 1 unit dose (3mL of 0.5mg and 3.0mg/3mL solution), expiration date: 11/16/2025, machine shop instructor lot #: [id number], brand name: DuoNeb, NDC #: [id number].Patient was observed for 5 minutes. Patient tolerated [...]
--- OUTSIDE RECORDS SUMMARY | 2024-11-24 12:54 | XMS_ITS ---
Author Organization [facility], Address [address] [facility] [place] [address] Care Team Providers Care Supervisor Forming And Tempering Name Role Phone Flakita Lott [facility] [phone] ALLERGIES, ADVERSE REACTIONS, ALERTS None MEDICATIONS Medication Code Code System Start Date Stop Date Route Dosage Directions Fill Instructions lisinopril RxNorm 11/12/20 23 1 azithromycin 625094 RxNorm 4 oral 1 prednisone 449406 RxNorm 4 oral 3 amoxicillin-pot clavulanate 100544 RxNorm 4 oral 1 Caltrate with Vitamin D3 RxNorm 11/12/20 23 1 pravastatin sodium RxNorm 11/12/20 23 1 PROBLEMS Problem Name Code Code System Start Date End Date Stat us Essential (primary) hypertension 37941590 [facility] Active Other hyperlipidemia 3100081 [facility] Active Other specified arthritis, unspecified site 1970114 [facility] Active Other asthma 161370728 [facility] Active Acute pharyngitis, unspecified 573178798 [facility] 03/26/2024 Active Acute cough 05053252 [facility] 03/26/2024 Active Pneumonia, unspecified organism 309783645 [facility] 4 Active ENCOUNTERS Encounter Diagnosis Code Code System Date Stat us Other asthma 678694197 [facility] 03/31/2024 Active Pneumonia, unspecified organism 853851154 [facility] 03/31 Active IMMUNIZATIONS * None VITAL SIGNS Code Code System Vitals Name Date Value and Un its 8462-4 [facility] Blood Pressure-Diastolic 03/31/2024 84 mmHg 8480-6 [facility] Blood Pressure-Systolic 03/31/2024 1 44 mmHg 8867-4 [facility] Heart Rate 03/31/2024 77 /min 9279-1 [facility] Respiratory Rate 03/31/2024 19 /min 8310-5 [facility] Body Temperature 03/31/2024 97.1 F 76240-8 [facility] Oxygen Saturation 03/31/2024 94 % SOCIAL HISTORY * None PROCEDURES Code Code System Procedure Date Status Notes 84198 [facility]4 Administer Nebul izer Treatment 03/31/2024 completed Abram Montgomeryill - 03/31/2024 Therapeutic nebulizer therapy (treatment of airway obstruction).Pulse: 77/min. O2 Saturation: 94%.Nebulizer session 1: Medication: Albuterol and Ipratropium, 1 unit dose (3mL of 0.5mg and 3.0mg/3mL solution), expiration date: 09/16/2025, vacuum drier tender lot #: [id number], NDC #: 6789-7859-22.Patient was observed for 10 minutes.Nebulizer session 2: Medication: Albuterol and Ipratropium, 1 unit dose (3mL of 0.5mg and 3.0mg/3mL solution), expiration date: 11/15/2025, vacuum drier tender lot #: [id number], NDC #: 2659-7528-18.Patient was observed for 10 minutes. Patient tolerated [...] patient left room ambulating without difficulty. J7620 [facility]4 Administer Nebul izer Treatment 03/31/2024 completed Abram Montgomeryill - 03/31/2024 Therapeutic nebulizer therapy (treatment of airway obstruction).Pulse: 77/min. O2 Saturation: 94%.Nebulizer session 1: Medication: Albuterol and Ipratropium, 1 unit dose (3mL of 0.5mg and 3.0mg/3mL solution), expiration date: 09/16/2025, vacuum drier tender lot #: [id number], NDC #: 4385-4678-44.Patient was observed for 10 minutes.Nebulizer session 2: Medication: Albuterol and Ipratropium, 1 unit dose (3mL of 0.5mg and 3.0mg/3mL solution), expiration date: 11/15/2025, vacuum drier tender lot #: [id number], NDC #: 7011-0132-36.Patient was observed for 10 minutes. Patient tolerated [...] 0.5mg and 3.0mg/3mL solution), expiration date: 09/16/2025, vacuum drier tender lot #: [id number], NDC #: 6420-5787-23.Patient was observed for 10 minutes.Nebulizer session 2: Medication: Albuterol and Ipratropium, 1 unit dose (3mL of 0.5mg and 3.0mg/3mL solution), expiration date: 11/15/2025, vacuum drier tender lot #: [id number], NDC #: 7639-5067-01.Patient was observed for 10 minutes. Patient tolerated [...]
--- OUTSIDE RECORDS SUMMARY | 2024-11-24 12:54 | XMS_ITS ---
Author Organization [facility], Address [address] [facility] [place] [address] Care Team Providers Care Newspaper Or Periodical Editor Name Role Phone Flakita Lott [facility] [phone] ALLERGIES, ADVERSE REACTIONS, ALERTS None MEDICATIONS Medication Code Code System Start Date Stop Date Route Dosage Directions Fill Instructions lisinopril RxNorm 11/12/20 23 1 azithromycin 223563 RxNorm 4 oral 1 prednisone 363613 RxNorm 4 oral 3 amoxicillin-pot clavulanate 654485 RxNorm 4 oral 1 Caltrate with Vitamin D3 RxNorm 11/12/20 23 1 pravastatin sodium RxNorm 11/12/20 23 1 PROBLEMS Problem Name Code Code System Start Date End Date Stat us Essential (primary) hypertension 08541707 [facility] Active Other hyperlipidemia 3603310 [facility] Active Other specified arthritis, unspecified site 4365987 [facility] Active Other asthma 499372078 [facility] Active Acute pharyngitis, unspecified 795539097 [facility] 03/26/2024 Active Acute cough 80936333 [facility] 03/26/2024 Active Pneumonia, unspecified organism 098777840 [facility] 4 Active ENCOUNTERS Encounter Diagnosis Code Code System Date Stat us Other asthma 203398100 [facility] 03/26/2024 Active Acute pharyngitis, unspecified 569303676 [facility] 2023 Active Acute cough 57111255 [facility] 03/26/2024 Active IMMUNIZATIONS * None VITAL SIGNS Code Code System Vitals Name Date Value and Un its 8462-4 [facility] Blood Pressure-Diastolic 03/26/2024 94 mmHg 8480-6 [facility] Blood Pressure-Systolic 03/26/2024 1 49 mmHg 8867-4 [facility] Heart Rate 03/26/2024 74 /min 9279-1 [facility] Respiratory Rate 03/26/2024 16 /min 8310-5 [facility] Body Temperature 03/26/2024 97.9 F 00604-9 [facility] Oxygen Saturation 03/26/2024 98 % SOCIAL HISTORY [...] breath please return.Take the cough medication as needed.Cjhz-ulc-jourcew throat lozenges can be used for the [...] Assay, Amplified Probe Molecular RT-PCR / NAAT 60374 CPT 03/26/2024 Dimple/Cepheid Strep A, DNA, Amplified Probe PCR 64854 CPT 03/26/2024 GOALS * None HEALTH CONCERNS * No Health Concerns FUNCTIONAL AND COGNITIVE STATUS * None CONSULTATION NOTES * None DISCHARGE SUMMARY NOTES * None HISTORY AND PHYSICAL NOTES * None IMAGING NOTES * None LABORATORY REPORT NARRATIVE NOTES * None PATHOLOGY REPORT NARRATIVE NOTES * None PROGRESS NOTES * None
--- OUTSIDE RECORDS SUMMARY | 2024-11-24 12:55 | XMS_ITS ---
Author Organization [facility], Address [address] [facility] [place] [address] Care Team Providers Care High School Sports Coach Name Role Phone Flakita Lott [facility] [phone] ALLERGIES, ADVERSE REACTIONS, ALERTS None MEDICATIONS Medication Code Code System Start Date Stop Date Route Dosage Directions Fill Instructions lisinopril RxNorm 11/12/20 23 1 azithromycin 163081 RxNorm 4 oral 1 prednisone 375026 RxNorm 4 oral 3 amoxicillin-pot clavulanate 787450 RxNorm 4 oral 1 Caltrate with Vitamin D3 RxNorm 11/12/20 23 1 pravastatin sodium RxNorm 11/12/20 23 1 PROBLEMS Problem Name Code Code System Start Date End Date Stat us Essential (primary) hypertension 81702905 [facility] Active Other hyperlipidemia 3521432 [facility] Active Other specified arthritis, unspecified site 6693274 [facility] Active Other asthma 404140378 [facility] Active Acute pharyngitis, unspecified 648370768 [facility] 03/26/2024 Active Acute cough 64907929 [facility] 03/26/2024 Active Pneumonia, unspecified organism 095327538 [facility] 4 Active ENCOUNTERS Encounter Diagnosis Code Code System Date Stat us Other asthma 455704437 [facility] 03/31/2024 Active Pneumonia, unspecified organism 998228157 [facility] 03/31 Active IMMUNIZATIONS * None VITAL SIGNS Code Code System Vitals Name Date Value and Un its 8462-4 [facility] Blood Pressure-Diastolic 03/31/2024 84 mmHg 8480-6 [facility] Blood Pressure-Systolic 03/31/2024 1 44 mmHg 8867-4 [facility] Heart Rate 03/31/2024 77 /min 9279-1 [facility] Respiratory Rate 03/31/2024 19 /min 8310-5 [facility] Body Temperature 03/31/2024 97.1 F 48947-1 [facility] Oxygen Saturation 03/31/2024 94 % SOCIAL HISTORY * None PROCEDURES Code Code System Procedure Date Status Notes 63552 [facility]4 Administer Nebul izer Treatment 03/31/2024 completed Abram Montgomeryill - 03/31/2024 Therapeutic nebulizer therapy (treatment of airway obstruction).Pulse: 77/min. O2 Saturation: 94%.Nebulizer session 1: Medication: Albuterol and Ipratropium, 1 unit dose (3mL of 0.5mg and 3.0mg/3mL solution), expiration date: 09/16/2025, coil machine supervisor lot #: [id number], NDC #: 2688-6502-16.Patient was observed for 10 minutes.Nebulizer session 2: Medication: Albuterol and Ipratropium, 1 unit dose (3mL of 0.5mg and 3.0mg/3mL solution), expiration date: 11/15/2025, coil machine supervisor lot #: [id number], NDC #: 4105-2925-01.Patient was observed for 10 minutes. Patient tolerated [...] patient left room ambulating without difficulty. J7620 [facility]4 Administer Nebul izer Treatment 03/31/2024 completed Abram Montgomeryill - 03/31/2024 Therapeutic nebulizer therapy (treatment of airway obstruction).Pulse: 77/min. O2 Saturation: 94%.Nebulizer session 1: Medication: Albuterol and Ipratropium, 1 unit dose (3mL of 0.5mg and 3.0mg/3mL solution), expiration date: 09/16/2025, coil machine supervisor lot #: [id number], NDC #: 0767-0690-38.Patient was observed for 10 minutes.Nebulizer session 2: Medication: Albuterol and Ipratropium, 1 unit dose (3mL of 0.5mg and 3.0mg/3mL solution), expiration date: 11/15/2025, coil machine supervisor lot #: [id number], NDC #: 0122-6173-08.Patient was observed for 10 minutes. Patient tolerated [...] 0.5mg and 3.0mg/3mL solution), expiration date: 09/16/2025, coil machine supervisor lot #: [id number], NDC #: 6770-6131-34.Patient was observed for 10 minutes.Nebulizer session 2: Medication: Albuterol and Ipratropium, 1 unit dose (3mL of 0.5mg and 3.0mg/3mL solution), expiration date: 11/15/2025, coil machine supervisor lot #: [id number], NDC #: 0750-4692-77.Patient was observed for 10 minutes. Patient tolerated [...]
--- OUTSIDE RECORDS SUMMARY | 2024-11-24 12:55 | XMS_ITS ---
Author Organization [facility], Address [address] [facility] [place] [address] Care Team Providers Care Capital Equipment Specialist Name Role Phone Flakita Lott [facility] [phone] ALLERGIES, ADVERSE REACTIONS, ALERTS None MEDICATIONS Medication Code Code System Start Date Stop Date Route Dosage Directions Fill Instructions lisinopril RxNorm 11/12/20 23 1 azithromycin 095538 RxNorm 4 oral 1 prednisone 564324 RxNorm 4 oral 3 amoxicillin-pot clavulanate 520287 RxNorm 4 oral 1 Caltrate with Vitamin D3 RxNorm 11/12/20 23 1 pravastatin sodium RxNorm 11/12/20 23 1 PROBLEMS Problem Name Code Code System Start Date End Date Stat us Essential (primary) hypertension 96999617 [facility] Active Other hyperlipidemia 7725298 [facility] Active Other specified arthritis, unspecified site 5833614 [facility] Active Other asthma 086470787 [facility] Active Acute pharyngitis, unspecified 118498848 [facility] 03/26/2024 Active Acute cough 73385140 [facility] 03/26/2024 Active Pneumonia, unspecified organism 966586480 [facility] 4 Active ENCOUNTERS Encounter Diagnosis Code Code System Date Stat us Other asthma 731136132 [facility] 04/01/2024 Active Essential (primary) hypertension 36670842 [facility] 03/17 Active Pneumonia, unspecified organism 904910591 [facility] 04/01 Active IMMUNIZATIONS * None VITAL SIGNS Code Code System Vitals Name Date Value and Un its 8462-4 [facility] Blood Pressure-Diastolic 04/01/2024 82 mmHg 8480-6 [facility] Blood Pressure-Systolic 04/01/2024 1 50 mmHg 8867-4 [facility] Heart Rate 04/01/2024 78 /min 9279-1 [facility] Respiratory Rate 04/01/2024 16 /min 8310-5 [facility] Body Temperature 04/01/2024 98.6 F 00884-1 [facility] Oxygen Saturation 04/01/2024 95 % SOCIAL HISTORY * None PROCEDURES Code Code System Procedure Date Status Notes 03903 Cpt4 Administer Nebul izer Treatment 04/01/2024 [facility] Therapeutic nebulizer therapy (treatment of airway obstruction).Nebulizer session 1: Medication: Albuterol and Ipratropium, 1 unit dose (3mL of 0.5mg and 3.0mg/3mL solution), expiration date: 11/16/2025, cdl program coordinator lot #: [id number], brand name: DuoNeb, NDC #: [id number].Patient was observed for 5 minutes. Patient tolerated procedure well. Patient left room without difficulty.O2 Saturation: 95%. J7620 Cpt4 Administer Nebul izer Treatment 04/01/2024 completed Abram Cobill - 04/01/2024 Therapeutic nebulizer therapy (treatment of airway obstruction).Nebulizer session 1: Medication: Albuterol and Ipratropium, 1 unit dose (3mL of 0.5mg and 3.0mg/3mL solution), expiration date: 11/16/2025, cdl program coordinator lot #: [id number], brand name: DuoNeb, NDC #: [id number].Patient was observed for 5 minutes. Patient tolerated [...]
--- OUTSIDE RECORDS SUMMARY | 2024-11-24 12:55 | XMS_ITS ---
Author Organization [facility], Address [address] [facility] [place] [address] Care Team Providers Care Marketing Proposal Coordinator Name Role Phone Flakita Lott [facility] [phone] ALLERGIES, ADVERSE REACTIONS, ALERTS None MEDICATIONS Medication Code Code System Start Date Stop Date Route Dosage Directions Fill Instructions lisinopril RxNorm 11/12/20 23 1 azithromycin 901750 RxNorm 4 oral 1 prednisone 858277 RxNorm 4 oral 3 amoxicillin-pot clavulanate 191835 RxNorm 4 oral 1 Caltrate with Vitamin D3 RxNorm 11/12/20 23 1 pravastatin sodium RxNorm 11/12/20 23 1 PROBLEMS Problem Name Code Code System Start Date End Date Stat us Essential (primary) hypertension 46244937 [facility] Active Other hyperlipidemia 6350978 [facility] Active Other specified arthritis, unspecified site 2822792 [facility] Active Other asthma 149403637 [facility] Active Acute pharyngitis, unspecified 168983424 [facility] 03/26/2024 Active Acute cough 46300183 [facility] 03/26/2024 Active Pneumonia, unspecified organism 810177088 [facility] 4 Active ENCOUNTERS Encounter Diagnosis Code Code System Date Stat us Other asthma 385553219 [facility] 03/26/2024 Active Acute pharyngitis, unspecified 881532583 [facility] 2023 Active Acute cough 00344239 [facility] 03/26/2024 Active IMMUNIZATIONS * None VITAL SIGNS Code Code System Vitals Name Date Value and Un its 8462-4 [facility] Blood Pressure-Diastolic 03/26/2024 94 mmHg 8480-6 [facility] Blood Pressure-Systolic 03/26/2024 1 49 mmHg 8867-4 [facility] Heart Rate 03/26/2024 74 /min 9279-1 [facility] Respiratory Rate 03/26/2024 16 /min 8310-5 [facility] Body Temperature 03/26/2024 97.9 F 23323-0 [facility] Oxygen Saturation 03/26/2024 98 % SOCIAL HISTORY [...] breath please return.Take the cough medication as needed.Nide-qym-gpwztwr throat lozenges can be used for the [...] Assay, Amplified Probe Molecular RT-PCR / NAAT 07942 CPT 03/26/2024 Dimple/Cepheid Strep A, DNA, Amplified Probe PCR 92139 CPT 03/26/2024 GOALS * None HEALTH CONCERNS * No Health Concerns FUNCTIONAL AND COGNITIVE STATUS * None CONSULTATION NOTES * None DISCHARGE SUMMARY NOTES * None HISTORY AND PHYSICAL NOTES * None IMAGING NOTES * None LABORATORY REPORT NARRATIVE NOTES * None PATHOLOGY REPORT NARRATIVE NOTES * None PROGRESS NOTES * None
--- NOTE | 2024-11-24 13:01 | A.OFFVIS_ITS ---
Intake Visit Reasons: emb results Oncology Rep: Oncology Rep Present (Neetu Bernard, A) Accompanied by: Daughter Allergies No Known Allergies Allergy (Verified 11/24/24 13:02) HPI Comments Details: The patient is presenting after endometrial biopsy. The patient has no complaints, no vaginal bleeding, no feverishness chills or abdominal pain. The endometrial biopsy pathology report showed the following: Endometrium, biopsy: Endometrial adenocarcinoma, endometrioid type, FIGO grade 2. See comment. Comment: ER, RI and MSI studies will be addended Last co testing 10/[address] scan of abdomen and pelvis done on 08/16/2024 [facility] Medical History Hypertension Anemia Surgical History Hx of cholecystectomy Social History Alcohol intake: never Patient Tobacco Use Status: Never used Tobacco Current occupational status: retired Current occupation: Right hand dominant Review of Systems Const All systems reviewed & are unremarkable except as noted in HPI and below Reports as per HPI and Reports no additional complaints GI Reports no additional complaints Reports no additional complaints Assessment & Plan Assessment & Plan (1) Endometrial adenocarcinoma: Comment: Grade 2 Code(s): C54.1 - Malignant neoplasm of endometrium Category: Medical Plan: Discussed with the patient the pathology results, the recommended surgical staging procedure, and the prognosis. CA 125, chest x-ray and CT scan of abdomen and pelvis with IV contrast and oral contrast ordered. Systems Requirements Planner Onc referral placed for further management. All questions answered, the patient verbalized understanding. Appointment scheduled at [facility] Systems Requirements Planner Oncology on 12/09 at 10:00, with Dr. Riojas, the patient is aware Orders: Orders Blood Urea Nitrogen Today C54.1 - Malignant neoplasm of endometrium CT abdomen pelvis w IV con Today C54.1 - Malignant neoplasm of endometrium Creatinine Today C54.1 - Malignant neoplasm of endometrium XR chest 2V Today C54.1 - Malignant neoplasm of endometrium CA-125 Today C54.1 - Malignant neoplasm of endometrium Referrals Gynecologic Oncology Referral C54.1 - Malignant neoplasm of endometrium Coding Level of Care Code Est Pt Level 3 (38106) Diagnoses Endometrial adenocarcinoma C54.1
== END 2024-11-24 13:32 | disposition home or self-care (01) ==
LOC: HO.HWS 12:52
PROVIDERS: PCP Internal Medicine; Visit Provider Obstetrics & Gynecology
DX: C54.1 Malignant neoplasm of endometrium (principal)
CPT/HCPCS: 99213

== ENCOUNTER 2024-11-24 12:52 | Outpatient (REF) | payer MEDICARE, SELFPAY ==
--- NOTE | ~2024-11-24 | XR_ITS ---
EXAMINATION: XR CHEST 2 VIEWS HISTORY: C54.1 - Malignant neoplasm of endometrium COMPARISON: Comparison is made with the prior examination dated 11/04/2023. FINDINGS: PA and lateral views of the chest are submitted. The lungs are expanded and clear. There is no pleural effusion, pneumothorax, or pulmonary vascular congestion. The heart is normal in size. There is a large hiatal hernia. There is degenerative disc disease of the spine. There are surgical clips in the right upper quadrant. XR/XR chest 2V IMPRESSION: Large hiatal hernia. No acute cardiopulmonary abnormality. Electronically signed by: Cal Mayfield MD 11/26/2024 10:51 AM [facility] [place]
[2024-11-24 14:50] LABS: Blood Urea Nitrogen 18 mg/dL (9-16); Estimated Glomerular Filt Rate > 60
[2024-11-27 09:08] LABS: CA-125 12 U/mL (<35)
== END 2024-11-24 12:53 | disposition home or self-care (01) ==
LOC: HO.LAB 12:52
PROVIDERS: PCP Internal Medicine; Visit Provider Obstetrics & Gynecology
DX: C54.1 Malignant neoplasm of endometrium (principal)
CPT/HCPCS: 36415; 71046; 82565; 84520; 86304; 99212

== ENCOUNTER → 2024-11-24 13:41 | Outpatient (BNV) | payer MEDICARE, SELFPAY | PROVIDERS: PCP Internal Medicine; Visit Provider Radiology Diagnostic Radiology | DX: K44.9 Diaphragmatic hernia without obstruction or gangrene (principal); C54.1 Malignant neoplasm of endometrium | CPT/HCPCS: 71046 ==

== ENCOUNTER 2025-02-16 10:51 | Outpatient (REF) | payer MEDICARE, SELFPAY ==
[2025-02-16 11:03] LABS: MANUAL DIFF FLAG NO
[2025-02-16 11:46] LABS: Basophils Percent Auto 0.5 % (0-2); Eosinophils Absolute Auto 0.2 X10*3/uL (0.0-0.4); Eosinophils Percent Auto 2.7 % (0-4); Hematocrit 30.2 % (37.0-47.0); Hemoglobin 9.7 g/dl (12.0-16.0); Imm Gran Abs Auto 0.01 X10*3/uL (0.00-0.03); Imm Gran Pct Auto 0.2 % (0.0-0.4); Lymphocytes Absolute Auto 1.8 X10*3/uL (1.2-4.9); Lymphocytes Percent Auto 28.7 % (20-40); Mean Corpuscular HGB Conc 32.1 g/dl (31.0-35.0); Mean Corpuscular Hemoglobin 28.5 pg (27.0-33.0); Mean Corpuscular Volume 88.8 fL (80.0-98.0); Mean Platelet Volume 10.1 fL (9.4-12.3); Monocytes Absolute Auto 0.5 X10*3/uL (0.1-1.2); Neutrophils Absolute Auto 3.8 x10*3/uL (2.0-8.3); Neutrophils Percent Auto 59.9 % (45-73); Platelet Count 265 X10*3/uL (160-400); Red Cell Distribution Width 15.1 % (11.0-16.0); White Blood Count 6.4 X10*3/uL (4.8-10.8)
[2025-02-16 12:28] LABS: Alanine Aminotransferase 13 U/L (0-31); Albumin Level 3.8 g/dL (3.5-5.0); Alkaline Phosphatase 97 U/L (39-117); Anion Gap 9 (12-20); Aspartate Amino Transferase 28 U/L (5-31); Bilirubin Total 0.5 mg/dL (0.0-1.0); Blood Urea Nitrogen 13 mg/dL (9-16); Calcium 9.1 mg/dL (8.4-10.2); Carbon Dioxide 29 mmol/L (22-29); Chloride 109 mmol/L (96-108); Estimated Glomerular Filt Rate > 60; Glucose Random 95 mg/dL (60-115); Potassium 3.9 mmol/L (3.3-5.1); Sodium 143 mmol/L (135-145); Total Protein 6.5 g/dL (6.5-8.0)
[2025-02-16 12:47] LABS: Ferritin 9 ng/mL (10-250)
== END 2025-02-16 10:52 | disposition home or self-care (01) ==
LOC: HO.LAB 10:51
PROVIDERS: PCP Internal Medicine; Visit Provider Internal Medicine
DX: E78.00 Pure hypercholesterolemia, unspecified (principal); I10 Essential (primary) hypertension; M17.11 Unilateral primary osteoarthritis, right knee; Z68.38 Body mass index [BMI] 38.0-38.9, adult; M17.0 Bilateral primary osteoarthritis of knee; Z98.890 Other specified postprocedural states
CPT/HCPCS: 36415; 80053; 82728; 85025; 99212

== ENCOUNTER 2025-02-16 11:25 | Outpatient (AMB) | payer MEDICARE, SELFPAY ==
--- NOTE | 2025-02-16 11:26 | MHC.OFFVIS ---
Vital Signs 02/16/25 11:29 Height 5 ft Weight 181 lb BMI 35.3 Intake Visit Reasons: OV-Shad knee Euflexxa inj follow up, 11/16/24 Intake Note: Lisbeth is a 79 year old female who presents with complaints of bilateral knee pains. She has had cortisone injections in the past which gave her minimal relief. She has also had viscosupplementation injections which gave her good relief. She has done physical therapy exercises which aggravated her pain. She has also tried Tylenol and ibuprofen which gave her minimal relief. She wishes to hold off on surgery if at all possible. Allergies No Known Allergies Allergy (Verified 02/16/25 11:29) Medication List - Last Reconciled 02/16/25 by Enzo Hunter MD calcium carbonate-vitamin D3 600 mg-20 mcg (800 unit) (Caltrate with Vitamin D3) 1 tab PO DAILY lisinopril 20 mg PO DAILY PFSH Medical History Hypertension Anemia Surgical History Hx of cholecystectomy Social History Alcohol intake: never Patient Tobacco Use Status: Never used Tobacco Current occupational status: retired Current occupation: Right hand dominant Physical Exam Vital Signs: BMI result Body Mass Index 35.3 Const Other: Well-nourished well-developed very friendly female awake alert and oriented x3 in no acute distress Extrem Other: Bilateral lower extremity examination shows good capillary refill, no skin lesions noted, normal sensation light touch Bilateral knee examination shows minimal effusions, palpable crepitus with range of motion, pain with range of motion, no instability Results Reviewed Results Reviewed: X-rays of the patient's bilateral knees taken previously show joint space narrowing, subchondral sclerosis, no acute bony abnormalities Assessment & Plan Assessment & Plan (1) Osteoarthritis of right knee: Code(s): M17.11 - Unilateral primary osteoarthritis, right knee Category: Medical (2) Osteoarthritis of left knee: Code(s): M17.12 - Unilateral primary osteoarthritis, left knee Category: Medical Plan Ms. Blackman presents with bilateral knee pains due to osteoarthritis. I had a lengthy discussion with the patient regarding the treatment options. She wishes to hold off on surgery for as long as possible. I agree with this plan. She has not gotten good relief from cortisone injections in the past. Thus, I will see whether or not her insurance company will cover a another set of 3 Euflexxa injections for both of her knees. I will see her back once the injections are available. Feel free to call me at any time should questions regarding her orthopedic management arise. I spent 20 minutes in reviewing the patient's records and imaging studies, seeing the patient and documenting in the medical record. Coding Level of Care Code Est Pt Level 3 (01022) Complex EM visit Add On G2211 Diagnoses Osteoarthritis of right knee M17.11 Osteoarthritis of left knee M17.12
[2025-02-16 11:29] VITALS: BMI 35.3
== END 2025-02-16 11:38 | disposition home or self-care (01) ==
LOC: HO.HOS 11:26
PROVIDERS: PCP Internal Medicine; Visit Provider Orthopaedic Surgery
DX: M17.0 Bilateral primary osteoarthritis of knee (principal)
CPT/HCPCS: 99213; G2211

== ENCOUNTER 2025-05-13 08:18 | Day surgery (SDC) | payer MEDICARE, SELFPAY ==
--- OUTSIDE RECORDS SUMMARY | 2025-03-29 12:54 | XMS_ITS ---
Author Organization [facility] Address [address] [place] [address] Care Team Providers Care Organ Recovery Coordinator Name Role Phone Nadia Lam Primary Care Provider Unavailab Jerrell Hensley Jr Unavailable Allergies No Known Allergies REASON FOR VISIT Patient presents today for anemia Medications Medication SIG (Take, Route, Frequency, Duration) Notes Start Date End Date Status Lisinopril 20 MG 1 tablet Orally Once a day for 30 day(s) 03/23/2025 Active hydroCHLOROthiazide 25 MG 1 tablet in th e morning Orally Once a day for 30 day(s) 03/23/2025 Active Simvastatin 20 MG 1 tablet in the even ing Orally Once a day Active Calcium 500 MG 1 tablet with meals Orally Twice a day Active Iron 325 (65 Fe) MG 1 tablet Orally Thre e times a Week Active Immunizations Vaccine Route Administration Date Status Comme nts Influenza Unknown 03/23/2025 Refused Social History Tobacco Use: Social History Observation Description Date Details (start date - stop date) Never Smoker NA - NA Tobacco Control (Standard) Question Answer Notes Tobacco use: Nonsmoker AUDIT-C (Standard) Question Answer Notes Did you have a drink containing alcohol in the p ast year? No Points 0 Interpretation Negative Problems Problem Type SNOMED Code ICD Code Onset Dates Problem Status W/U Status Risk Notes Problem Iron deficiency anemia (D50.9) Active confirmed Vital Signs Temperature 98.5 degrees Fahrenheit 03/23/20 25 Blood pressure systolic 001 mm Hg 03/23/20 25 Blood pressure diastolic 01 mm Hg 025 Height 60 in 03/23/2025 Weight 178.2 lbs 03/23/2025 BMI 34.8 kg/m2 03/23/2025 Encounters Encounter Location Date Provider Diagnosis [facility] [address] [place] [address] 03/23/2025 Jerrell Post Jr Iron deficiency anemia D50.9 Assessments Encounter Date Diagnosis (ICD Code) Assessment Notes Treatment Notes Treatment Clinical Notes Section Notes 03/23/2025 Iron deficiency anemia (ICD-10 - D50.9) We discussed iro n deficiency anemia today. We discussed GI causes for blood loss. We discussed both upper and lower GI causes including peptic ulcer disease, malignancy, erosive esophagitis, AVMs, colon polyps, hemorrhoids and other sources. We recommended further evaluation with upper GI endoscopy and colonoscopy. We discussed risks and benefits of both procedures. She understands these and agrees to proceed. She was advised to stop iron 1 week before the procedure and hydrochlorothiazide the day before the procedure.We discussed the increased risk in family history members who have colon cancer Plan Of Treatment Future Test Test Name Order Date UPPER GI ENDOSCOPY 03/23/2025 COLONOSCOPY 03/23/2025 Next Appt Details Follow Up: 1 Year, Reason: Provider Name:Jerrell roach Jr, 04/08/2025 01:40:00 PM, [address] [place] [address] , [place], [place], [phone], Progress Notes * KEAGAN LIMONDOB:1945 ( 79 yo F)Acc No.[id number]:03/23/2025 Progress Notes Patient:?KEAGAN LIMON Provider:?Jerrell Post MD :1945???Age:79 Y???Sex:Female D ate:03/23/2025 Address:[address], [id number] Pcp:Nadia Lam Subjective: * Chief Complaints: * ???1. Patient presents today for anemia. * HPI: ???New symptom(s):? The patient is a pleasant 79-year-old woman seen today in consultation at the request of her primary care provider. She has a history of iron deficiency anemia, which she reports has been present for some time. She understands she was evaluated with upper endoscopy and colonoscopy in [address] [facility]. A hiatal hernia was reported and colonoscopy showed diverticular disease. She has no complaints of rectal bleeding or change in her bowel habits. She she has no blood in her stools. She has no upper GI symptoms including dysphagia, hematemesis, or melena. Recent laboratory studies from February show a hematocrit of 30.2 with a ferritin of 9. She has been started on iron. She has returned a Cologuard test which is pending. She has been evaluated by Dr. 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 This has been deferred until after her endometrial cancer which was diagnosed earlier this year is treated. * ROS:?General/Constitutional:?Change in appetite?denies.?Fatigue?denies.?ENT:?Patient denies?difficulty swallowing.?Respiratory:?Patient denies?shortness of breath.?Cardiovascular:?Patient denies?chest pain.?Gastrointestinal:?Comments?See HPI for details.?Genitourinary:?Difficulty urinating?denies.?Incontinence?denies.?Musculoskeletal:?Patient denies?muscle aches.?Skin:?Patient denies?pruritis.?Neurologic:?Patient denies?low back pain.?Psychiatric:?Patient denies?mental or physical abuse.? * Medical History:?High blood pressure, Endometrial cancer status post total hysterectomy and XRT, Hypertension, Asthma, Hyperlipidemia, Type III paraesophageal hernia. * Surgical History:?Total abdo dori hysterectomy 11/24/2024, Laparoscopic cholecystectomy . * Family History:?Father: dece ased, diagnosed with HTN (hypertension), Heart disease.?Mother: .? No family history of liver cancer. Brother and sister of colon cancer.? One sister alive but had colon cancer. * Social History:?Tobacco Use:?Tobacco Control (Standard)?Tobacco use:?Nonsmoker.?Miscellaneous:?Marital status: . Occupation: retired. ???Drug/Alcohol:?AUDIT-C (Standard)?Did you have a drink containing alcohol in the past year??No,?Points?0,?Interpretation?Negative.? * Medications:?Taking Calcium 500 MG Tablet 1 tablet with meals Orally Twice a day , Taking Iron 325 (65 Fe) MG Tablet 1 tablet Orally Three times a Week , Taking Simvastatin 20 MG Tablet 1 tablet in the evening Orally Once a day , Taking Lisinopril 20 MG Tablet 1 tablet Orally Once a day , Taking hydroCHLOROthiazide 25 MG Tablet 1 tablet in the morning Orally Once a day , Medication List reviewed and reconciled with the patient * Allergies:?N.K.D.A. Objective: * Vitals:?Wt: 178.2 lbs, Ht: 6 0 in, BMI: 34.8 Index, BP: 001/01 mm Hg, Temp: 98.5, Ht-cm: 152.4, Wt-k.83. * Examination: ???General Examination: ?GENERAL APPEARANCE:?in no acute distress.?HEAD:?normocephalic.?EYES:?sclera non-icteric.?ORAL CAVITY:?mucosa moist.?NECK/THYROID:?no lymphadenopathy.?SKIN:?anicteric.?HEART:?S1, S2 normal, no murmurs.?LUNGS:?clear to auscultation bilaterally.?CHEST:?normal shape and expansion.?ABDOMEN:?soft, nontender, nondistended, bowel sounds present, no organomegaly .?EXTREMITIES:?no clubbing, cyanosis, or edema.?PSYCH:?cognitive function intact.? Assessment: * Assessment: 1.?Iron deficiency anemia - D50.9 (Primary)??? We discussed iron deficiency anemia today. We discussed GI causes for blood loss. We discussed both upper and lower GI causes including peptic ulcer disease, malignancy, erosive esophagitis, AVMs, colon polyps, hemorrhoids and other sources. We recommended further evaluation with upper GI endoscopy and colonoscopy. We discussed risks and benefits of both procedures. She understands these and agrees to proceed. She was advised to stop iron 1 week before the procedure and hydrochlorothiazide the day before the procedure.We discussed the increased risk in family history members who have colon cancer Plan: * Treatment: * Immunizations:? Influenza (Not administered - Refused: Patient decision) * Procedure Codes:?G9744 PATIE NT NOT ELIG D/T ACTIVE DX HTN * Preventive Medicine:? ??Counseling:?Care goal follow-up plan:?Above Normal BMI Follow-up?Dietary management education, guidance, and counseling,?BMI management provided?Yes.? ??Urinary Incontinence:?Urinary Incontinence?Assessment:?Absent,?Plan of care documented:?No, reason not specified.? ??Screenings:?Fall Risk Screening?Fall Risk Assessment:?No falls in the past year,?Screening:?No falls in the past year,?Assessment:?Not performed, no reason specified,?Plan of Care:?Not documented, no reason specified.? * Follow Up:?1 Year * * Sign off status: Completed true * Provider:?Jerrell Post MD Date:?0 03/23/2025 Generated for Lloyd figueroa/Benson/eTransmitting on:?03/29/2025 12:54 PM EDT History and Physical Notes * HPI (History of Present Illness) Category Sub-Category Detail Notes Category Not es New symptom(s) The patient is a pleasant 79-year-old woman seen today in consultation at the request of her primary care provider. She has a history of iron deficiency anemia, which she reports has been present for some time. She understands she was evaluated with upper endoscopy and colonoscopy in [address] [facility]. A hiatal hernia was reported and colonoscopy showed diverticular disease. She has no complaints of rectal bleeding or change in her bowel habits. She she has no blood in her stools. She has no upper GI symptoms including dysphagia, hematemesis, or melena. Recent laboratory studies from February show a hematocrit of 30.2 with a ferritin of 9. She has been started on iron. She has returned a Cologuard test which is pending. She has been evaluated by Dr. 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 This has been deferred until after her endometrial cancer which was diagnosed earlier this year is treated. Examination Category Sub-Category Detail Notes Category Not es General Examination GENERAL APPEARANCE: in no acute di stress HEAD: normocephalic EYES: sclera non-icteric NECK/THYROID: no lymphadenopathy HEART: S1, S2 normal, no mu rmurs CHEST: normal shape and exp ansion LUNGS: clear to auscultatio n bilaterally ABDOMEN: soft, nontender, non distended, bowel sounds present, no organomegaly SKIN: anicteric EXTREMITIES: no clubbing, cyanosi s, or edema PSYCH: cognitive function i ntact ORAL CAVITY: mucosa moist
--- OUTSIDE RECORDS SUMMARY | 2025-03-29 12:54 | XMS_ITS | Patient Health Record ---
Author Organization [facility] [facility] Address [address] [place] [address] Care Team Providers Care Environmental Communications Specialist Name Role Phone Nadia Langston Primary Care Provider Unavailab Jerrell Hensley Jr Unavailable [phone] Allergies No Known Allergies Reason For Referral Referring Provider First Name Nadia Referring Provider Last Name Genaro Referring Provider Speciality Internal M edicine Referred Organization [facility] Referred Provider Jerrell Bermeo Jr Referred Address [address],[place],[address], Referred Provider Specialty Gastroentero logy General Notes Juana Nichole 2024 10:15:06 AM >REQUESTED AN O BLUE REFERRAL FROM DR LANGSTON'S OFFICE FOR APPT TO BE SCHEDULED WITH DR BERMEO Referral Priority Routine Medications Medication SIG (Take, Route, Frequency, Duration) [...] confirmed Vital Signs Temperature 98.5 degrees Fahrenheit 03/23/2025 Blood pressure diastolic 01 mm Hg 03/23/2025 Height 60 in 03/23/2025 Blood pressure systolic 001 mm Hg 03/23/2025 Weight 178.2 lbs 03/23/2025 BMI 34.8 kg/m2 03/23/2025 Encounters Encounter Location Date Provider Diagnosis [facility] [address] [place] [address] 03/23/2025 Jerrell Bermeo Jr Iron deficiency anemia D50.9 Assessments Encounter [...] ENDOSCOPY 03/23/2025 COLONOSCOPY 03/23/2025 Next Appt Details Provider Name:Jerrell roach Jr, 04/08/2025 01:40:00 PM, [address] [place] [address] , [place], [place], [phone], Insurance Providers Payer Name Payer Address Payer Phone Subscriber Number Group Number Insured Name Patient Relationship to Insured Coverage Start Date Coverage End Date [facility] [employer] [address] [place] [address] [id number] KEAGAN LIMON Self - patient is the insured Medical (General) History Medical History History ICD Code high blood pressure Endometrial cancer status post total hys terectomy and XRT Hypertension Asthma Hyperlipidemia Type III paraesophageal hernia Surgical History Surgery Date(Month/Year) Laparoscopic cholecystectomy Total abdominal hysterectomy 11/24/2024
[2025-05-11 09:43] VITALS: BMI 34.8
--- NOTE | 2025-05-11 14:12 | HO.ANESPROP2 ---
Documented by User: Yanelis Salazar NP 05/11/25 14:12 HPI - Anesthesia Eval Consult details Narrative: 80yo F for Upper Endoscopy and Colonoscopy PMFSH Active Problems Active Problems: All Active Problems Pre-procedure lab exam (Acute) Endometrial adenocarcinoma (Acute) Postmenopausal bleeding (Acute) Osteoarthritis of right knee (Acute) Osteoarthritis of left knee (Acute) Left knee pain (Acute) Anemia (Acute) Hypertension (Acute) Past Medical History Medical History Endometrial cancer Paraesophageal hernia Iron deficiency anemia Osteoarthritis Hypertension Anemia Surgical History Surgical History Hx laparoscopic cholecystectomy Hx of hysterectomy, total Hx of cholecystectomy Social History Social History Alcohol intake: never Patient Tobacco Use Status: Never used Tobacco Use of substances other than those prescribed or required for medical reasons: No Advance Directives: No Advance Directives Information Provided: Yes Current occupational status: retired Current occupation: Right hand dominant Meds Allergies Allergy/AdvReac Type Severity Reaction Status Date / Time No Known Allergies Allergy Verified 02/16/25 11:29 Home Medications ?Medication ?Instructions ?Recorded ?Confirmed ?Last Taken ?Type calcium 600 mg (as 1 tab PO DAILY 03/03/24 05/11/25 Unknown History carbonate)-vitamin D3 20 mcg (800 unit) tablet (Caltrate with Vitamin D3) lisinopril 20 mg tablet 20 mg PO DAILY 03/03/24 05/11/25 Unknown History ferrous sulfate 325 mg (65 mg 325 mg PO DAILY 05/11/25 05/11/25 Unknown History iron) tablet,delayed release hydrochlorothiazide 25 mg tablet 25 mg PO DAILY 05/11/25 05/11/25 Unknown History pravastatin 40 mg tablet 40 mg PO BEDTIME 05/11/25 05/11/25 Unknown History Exam Height,Weight and Vital Signs: Height 5 ft Weight 80.83 kg Assessment and Plan Assessment Anesthesia Assessment: Chart Reviewed Documented by User: Dl Fernandez MD 05/13/25 10:18 [facility] Past Medical History Medical History Endometrial cancer Paraesophageal hernia Iron deficiency anemia Osteoarthritis Hypertension Anemia Cognitive capacity: good Functional capacity: independent ambulation Family History Family history of problems with anesthesia: No Surgical History Surgical History Hx laparoscopic cholecystectomy Hx of hysterectomy, total Hx of cholecystectomy History of Problems with Anesthesia: No Social History Social History Alcohol intake: never Patient Tobacco Use Status: Never used Tobacco Use of substances other than those prescribed or required for medical reasons: No Advance Directives: No Advance Directives Information Provided: Yes Current occupational status: retired Current occupation: Right hand dominant Meds Allergies Allergy/AdvReac Type Severity Reaction Status Date / Time No Known Allergies Allergy Verified 02/16/25 11:29 Home Medications ?Medication ?Instructions ?Recorded ?Confirmed ?Last Taken ?Type calcium 600 mg (as 1 tab PO DAILY 03/03/24 05/11/25 Unknown History carbonate)-vitamin D3 20 mcg (800 unit) tablet (Caltrate with Vitamin D3) lisinopril 20 mg tablet 20 mg PO DAILY 03/03/24 05/11/25 Unknown History ferrous sulfate 325 mg (65 mg 325 mg PO DAILY 05/11/25 05/11/25 Unknown History iron) tablet,delayed release hydrochlorothiazide 25 mg tablet 25 mg PO DAILY 05/11/25 05/11/25 Unknown History pravastatin 40 mg tablet 40 mg PO BEDTIME 05/11/25 05/11/25 Unknown History Exam Exam Date and Time: 05/13/25 Airway Mallampati Class: II TM Dist: >3cm Neck ROM: Full Heart: rrr Lungs: cta Other: oriented Assessment and Plan Final Anesthetic Review Family History of Problems with Anesthesia: No History of Problems with Anesthesia: No NPO: Yes ASA Class: II Final Preanesthetic Review: No Changes in Pt Med Stat, Meds/Allgs Chart Reviewed, Consent Obtained/Reviewed and Anes Risks/Benef Reviewed Patient Risk: Intermediate Procedure Risk: Low Anesthetic Plan Anesthetic Plan: MAC: Disposition: Standard PACU
[2025-05-13 08:47] VITALS: BP 152/71; PULSE 68; RESP 16; TEMP 36.6; O2SAT 98
[2025-05-13] MEDS: Lactated Ringers 1,000 ML 100 ML IVCONT (08:48)
--- NOTE | 2025-05-13 10:10 | MHC.SHP ---
Pre-Procedural Eval Section A - 24 Hr Update-Section A only Date of Service: 05/13/25 Section B - Complete if H&P > 30 days Chief Complaint: Iron deficiency anemia, unspecified Details of Present Illness: see H&P no cnages Relevant Family History (Specify if Yes): No Relevant Social History: None Present Medications: see Short Stay Collaborative assessment Medical History: No relevant PMH Allergies: Allergies Allergy/AdvReac Type Severity Reaction Status Date / Time No Known Allergies Allergy Verified 02/16/25 11:29 Review of Systems Sugical H&P ROS: Negative: Constitution, Cardiovascular, Respiratory, Neurological, Psychiatric, Hem-Onc, Allergic/Immunologic, Gastrointestinal, Genitourinary, Musculoskeletal, Integumentary, Endocrine and Eyes/Ears/Nose/Throat Exam Surgical H&P Exam: Normal: HEENT, Normal: Heart, Normal: Lungs, Normal: Extremities, Normal: Abdomen, Normal: Skin and Normal: Neurological Plan Diagnosis/Plan: Unchanged I have reviewed the history and physical and performed a pertinent physical examination on my patient. No changes have occurred unless specified. Time Spent With Patient Time: Total time managing care of this patient today ____ minutes.
[2025-05-13 11:04] VITALS: BP 122/50; PULSE 60; RESP 16; TEMP 36.6; O2SAT 96
--- NOTE | 2025-05-13 11:12 | P.BOP_ITS ---
Brief Operative Note Date of Service: 05/13/25 Pre-op diagnosis: ANANTH Procedure: egd colon Surgeon: Jerrell Post MD Anesthesia: MAC Was an Printer Floor Covering Assistant used for this Procedure?: No Estimated blood loss (mL): 2 Pathology: other Condition: stable Disposition: PACU
[2025-05-13 11:19] VITALS: BP 121/53; PULSE 63; RESP 16; TEMP 36.6; O2SAT 98
--- NOTE | 2025-05-13 11:40 | OP_ITS ---
DATE OF SERVICE: 05/13/2025 SURGEON: Jerrell Post MD INDICATIONS: Iron deficiency anemia. PREOPERATIVE DIAGNOSIS: POSTOPERATIVE DIAGNOSIS: PROCEDURE PERFORMED: Upper endoscopy with biopsy, colonoscopy to the cecum. ESTIMATED BLOOD LOSS: COMPLICATIONS: ANESTHESIA: ASSISTANTS: SPECIMENS: MEDICATIONS: Monitored anesthesia care. DESCRIPTION OF PROCEDURE: A history and physical performed. The risks and benefits of the procedure were explained to the patient. Informed consent was obtained. The patient was placed in the left lateral decubitus position. The Olympus video gastroscope was introduced into the esophagus, stomach, and duodenum. Examination was performed. The scope was removed. She was repositioned for colonoscopy. A digital rectal exam was performed and was found to be normal. The Olympus pediatric video colonoscope was introduced into the rectum and advanced to the cecum. The cecum was identified by transillumination, palpation, and identification of ileocecal valve. Examination was performed. The scope was removed. She tolerated both procedures well. She returned to recovery room in stable condition. FINDINGS: Upper endoscopy: 1. Esophagus: The esophagus was normal. There was a 5 cm hiatal hernia. 2. Stomach: The stomach showed no evidence of masses or ulcers. Antral biopsies were obtained to evaluate for H pylori. 3. Duodenum: The bulb and second portion were normal. Biopsies were obtained to evaluate for malabsorption. Colonoscopy: The terminal ileum was not examined. The visualized colonic mucosa was normal. The quality of prep was good. There was moderate sigmoid diverticulosis. No polyps were identified. Retroflexed examination showed some small internal hemorrhoids. IMPRESSION: 1. Hiatal hernia. 2. Normal colonoscopy. RECOMMENDATION: 1. Follow up the biopsy results. 2. Repeat colonoscopy is recommended in 10 years for average-risk individuals. This is optional based on the patient's age. MD HERNANDEZ Wise/ANABELLAL / [id number] MTDD
== END 2025-05-13 11:58 | disposition home or self-care (01) ==
PROVIDERS: PCP Internal Medicine; Visit Provider Internal Medicine Gastroenterology
PROC: (CPT 43239; principal; 2025-05-13 10:10)
DX: R19.4 Change in bowel habit (principal); K57.30 Diverticulosis of large intestine without perforation or abscess without bleeding; K64.8 Other hemorrhoids; Z80.0 Family history of malignant neoplasm of digestive organs; D50.9 Iron deficiency anemia, unspecified; K44.9 Diaphragmatic hernia without obstruction or gangrene; I10 Essential (primary) hypertension; C54.1 Malignant neoplasm of endometrium; Z79.899 Other long term (current) drug therapy
CPT/HCPCS: 43239; G0105; 88305; 88313; 88342; J2003; J2704; J3010

== ENCOUNTER 2025-05-19 08:01 | Outpatient (REF) | payer MEDICARE, SELFPAY ==
--- OUTSIDE RECORDS SUMMARY | 2025-05-19 08:04 | XMS_ITS | Patient Health Record ---
Author Organization [facility] Address [address] [place] [address] Care Team Providers Care Oem Sales Manager Name Role Phone Nadia Langston Primary Care Provider Unavailab Jerrell Hensley Jr Unavailable Allergies No Known Allergies Results Component Value Reference Range Notes Pathology Reviewed date:05/17/2025 03:37:56 PM Interpretation: Performing Lab:[facility], [address] [place] [phone] Notes/Report: Reason For Referral Referring Provider First Name Nadia Referring Provider Last Name Genaro Referring Provider Speciality Internal M edicine Referred Organization [facility] Referred Provider Jerrell Bermeo Jr Referred Address [address] [place] [address], [address],[place], [place],[address], Referred Provider Specialty Gastroentero logy General Notes [...] 03/23/2025 Encounters Encounter Location Date Provider Diagnosis [facility] Outpatient [address] [place] [id number] 05/13/2025 Jerrell Bermeo Jr [facility] [address] [place] [phone] 03/23/2025 Jerrell Bermeo Jr Iron deficiency anemia D50.9 [facility] [address] [place] [phone] 04/01/2025 Jerrell Bermeo Jr [facility] [address] [place] [phone] 05/17/2025 Jerrell Bermeo Jr Assessments Encounter Date Diagnosis (ICD Code) Assessment [...] Date UPPER GI ENDOSCOPY 03/23/2025 COLONOSCOPY 03/23/2025 Insurance Providers Payer Name Payer Address Payer Phone Subscriber Number Group Number Insured Name Patient Relationship to Insured Coverage Start Date Coverage End Date [facility] [employer] CLAIMS [address] [place] [address] [id number] KEAGAN LIMON Self - patient is the insured Medical (General) History Medical History History ICD Code high blood pressure Endometrial cancer status post total hys terectomy and XRT Hypertension Asthma Hyperlipidemia Type III paraesophageal hernia Surgical History Surgery Date(Month/Year) Laparoscopic cholecystectomy Total abdominal hysterectomy 11/24/2024
[2025-05-19 08:10] LABS: MANUAL DIFF FLAG NO
[2025-05-19 08:51] LABS: Hematocrit 31.7 % (37.0-47.0); Hemoglobin 10.1 g/dl (12.0-16.0); Imm Gran Abs Auto 0.01 X10*3/uL (0.00-0.03); Imm Gran Pct Auto 0.1 % (0.0-0.4); Lymphocytes Absolute Auto 2.0 X10*3/uL (1.2-4.9); Mean Corpuscular HGB Conc 31.9 g/dl (31.0-35.0); Mean Corpuscular Hemoglobin 28.6 pg (27.0-33.0); Mean Corpuscular Volume 89.8 fL (80.0-98.0); NRBC Abs Auto 0.000 X10*3/uL (0.0-0.012); NRBC Pct Auto 0.0 /100WBC (0.0-0.2); Platelet Count 236 X10*3/uL (160-400); Red Blood Count 3.53 X10*6/uL (4.20-5.50); White Blood Count 6.8 X10*3/uL (4.8-10.8)
[2025-05-19 09:25] LABS: Alanine Aminotransferase 23 U/L (0-31); Albumin Level 4.0 g/dL (3.5-5.0); Alkaline Phosphatase 100 U/L (39-117); Anion Gap 10 (12-20); Aspartate Amino Transferase 33 U/L (5-31); Blood Urea Nitrogen 21 mg/dL (9-16); Calcium 9.0 mg/dL (8.4-10.2); Carbon Dioxide 30 mmol/L (22-29); Chloride 106 mmol/L (96-108); Cholesterol 160 mg/dL (<200); Estimated Glomerular Filt Rate > 60; HDL Cholesterol 66 mg/dL (>40); Potassium 4.1 mmol/L (3.3-5.1); Sodium 142 mmol/L (135-145); Total Protein 6.7 g/dL (6.5-8.0); Triglycerides 100 mg/dL (<150)
== END 2025-05-19 08:02 | disposition home or self-care (01) ==
LOC: HO.LAB 08:01
PROVIDERS: PCP Internal Medicine; Visit Provider Internal Medicine
DX: D50.8 Other iron deficiency anemias (principal); I10 Essential (primary) hypertension; Z85.42 Personal history of malignant neoplasm of other parts of uterus; Z90.710 Acquired absence of both cervix and uterus
CPT/HCPCS: 36415; 80053; 80061; 85025

== ENCOUNTER 2025-07-14 08:35 | Outpatient (AMB) | payer MEDICARE, SELFPAY ==
--- OUTSIDE RECORDS SUMMARY | 2025-04-08 08:40 | XMS_ITS ---
Author Organization [facility] Address [address] [place] [address] Care Team Providers Care Labor Arbitrator Name Role Phone Nadia Lam Primary Care Provider Unavailab Jerrell Hensley Jr [phone] REASON FOR VISIT fe def anemia Encounters Encounter Location Date Provider Diagnosis [facility] [place] [address] [place] [phone] 04/08/2025 Jerrell Post Jr Plan Of Treatment No Information Progress Notes * KEAGAN LIMONDOB:1945 ( 80 yo F)Acc No.[id number]:04/08/2025 EGD and COL/MAC Patient: KEAGAN LAU Provider: Fannie Post MD :1945 A ge:79 Y S ex:Female Date:04/08/2025 Address:[address] [id number] Pcp:Nadia Lam Subjective: * Chief Complaints: * [...] 0 04/08/2025 Generated for Printi ng/Faxing/eTransmitting on: 0 07/14/2025 09:15 AM EDT
--- OUTSIDE RECORDS SUMMARY | 2025-05-13 06:10 | XMS_ITS ---
Author Organization [facility] Address [address] [place] [address] Care Team Providers Care Labor Utilization Superintendent Name Role Phone Nadia Lam Primary Care Provider Unavailab Jerrell Hensley Jr REASON FOR VISIT anemia Encounters Encounter Location Date Provider Diagnosis [facility] Outpatient [address] [place] [phone] 05/13/2025 Jerrell Post Jr Iron deficiency anemia D50.9 and Hiatal hernia K44.9 Assessments Encounter Date Diagnosis (ICD Code) Assessment Notes Treatment Notes Treatment Clinical Notes Section Notes 05/13/2025 Iron deficiency anemia (ICD-10 - D50.9) 05/13/2025 Hiatal hernia (ICD-10 - K44.9) Plan Of Treatment No Information Progress Notes * KEAGAN LIMONDOB:1945 ( 80 yo F)Acc No.[id number]:05/13/2025 EGD and COL/MAC Patient: KEAGAN LAU Provider: [...] , 0529F INTRVL 3+YRS PTS CLNSCP DOCD, [address] UPPER GI ENDOSCOPY, BIOPSY * * The named appointment provid er may or may not be the originator of this progress note, and it is not deemed complete until electronically signed by the appointment provider. Sign off status: Pending * Provider: Fannie Post MD Date: 0 05/13/2025 Generated for Lloyd figueroa/Benson/Ricksmitting on: 0 07/14/2025 09:15 AM EDT
--- NOTE | 2025-07-14 08:39 | MHC.OFFVIS ---
Intake Visit Reasons: Inj-B/L knee Euflexxa #1 Intake Note: Lisbeth is a 80 year old female who presents today for an injection in her bilateral knee, Euflexxa injection #1. She describes her knee pains as sharp in nature. She has had viscosupplementation injections which gave her fairly good relief in the past. She wishes to hold off on surgery if at all possible. She has failed the last 3 months of conservative treatment. Allergies No Known Allergies Allergy (Verified 07/14/25 08:50) Medication List - Last Reconciled 07/14/25 by Enzo Hunter MD albuterol sulfate 90 mcg/actuation 2 puffs inhalation QID PRN calcium carbonate-vitamin D3 600 mg-20 mcg (800 unit) (Caltrate with Vitamin D3) 1 tab PO DAILY ferrous sulfate 325 mg PO DAILY fexofenadine (Allergy Relief (fexofenadine)) 180 mg PO DAILY hydrochlorothiazide 25 mg PO DAILY lisinopril 20 mg PO DAILY pravastatin 40 mg PO BEDTIME PFSH Medical History Endometrial cancer Paraesophageal hernia Iron deficiency anemia Osteoarthritis Hypertension Anemia Surgical History Hx laparoscopic cholecystectomy Hx of hysterectomy, total Hx of cholecystectomy Social History Alcohol intake: never Patient Tobacco Use Status: Never used Tobacco Current occupational status: retired Current occupation: Right hand dominant Physical Exam Const Other: Well-nourished well-developed very friendly female awake alert and oriented x3 in no acute distress Extrem Other: Bilateral knee examination shows minimal effusions, palpable crepitus with range of motion, pain with range motion, no instability Office Procedures AMB Joint Injection/Aspiration Joint Injection/Aspiration Primary Site: left knee Prep: site was prepped using aseptic technique Injected: 20 mg of (Euflexxa viscosupplementation) and 1% plain lidocaine Procedure: The patient tolerated the procedure well Coding 28229 - Large joint Procedure code (CPT) selection complete AMB Joint Injection/Aspiration Joint Injection/Aspiration Primary Site: right knee Prep: site was prepped using aseptic technique Injected: 20 mg of (Euflexxa viscosupplementation) and 1% plain lidocaine Procedure: The patient tolerated the procedure well Coding 66399 - Large joint Procedure code (CPT) selection complete Assessment & Plan Assessment & Plan (1) Osteoarthritis of left knee: Code(s): M17.12 - Unilateral primary osteoarthritis, left knee Category: Medical (2) Osteoarthritis of right knee: Code(s): M17.11 - Unilateral primary osteoarthritis, right knee Category: Medical Plan Ms. Blackman presents with bilateral knee pains due to osteoarthritis. The risks and benefits of bilateral knee Euflexxa injections were discussed at length with the patient. The patient wished to proceed. She tolerated the 1st set of injections well. She will continue with her home exercise program. She will follow up next week as scheduled. Feel free to call me at any time should questions regarding her orthopedic management arise. I spent 22 minutes in reviewing the patient's records and imaging studies, seeing the patient and documenting in the medical record. Orders: Orders AMB Joint Injection/Aspiration Today M17.11 - Unilateral primary osteoarthritis, right knee AMB Joint Injection/Aspiration Today M17.12 - Unilateral primary osteoarthritis, left knee Coding Level of Care Code Est Pt Level 3 (83112) Complex EM visit Add On G2211 Diagnoses Osteoarthritis of left knee M17.12 Osteoarthritis of right knee M17.11 CPT Codes Coding - 63858 Large joint: 59987 - Large joint ([id number]) Coding - 23865 Large joint: 90697 - Large joint ([id number])
--- OUTSIDE RECORDS SUMMARY | 2025-07-14 09:15 | XMS_ITS | Patient Health Record ---
Author Organization [facility] Address [address] [place] [address] Care Team Providers Care Patient Account Liaison Name Role Phone Nadia Langston Primary Care Provider Unavailab Jerrell Hensley Jr Unavailable [phone] Allergies No Known Allergies Results Component Value Reference Range Notes Pathology Reviewed date:05/17/2025 03:37:56 PM Interpretation: Performing Lab:[facility], [address] [place] [phone] Notes/Report: Reason For Referral Referring Provider First Name Nadia Referring Provider Last Name Genaro Referring Provider Speciality Internal M edicine Referred Organization [facility] Referred Provider Jerrell Bermeo Jr Referred Address [address] [place] [address], [address],[place], [place],[address], Referred Provider Specialty Gastroentero logy General Notes [...] Status Risk Notes Problem Iron deficiency anemia ([id number]) Iron deficiency anemia (D50.9) Active confirmed Vital Signs Temperature 98.5 degrees Fahrenheit 03/23/2025 Blood pressure diastolic 01 mm Hg 03/23/2025 Height 60 in 03/23/2025 Blood pressure systolic 001 mm Hg 03/23/2025 Weight 178.2 lbs 03/23/2025 BMI 34.8 kg/m2 03/23/2025 Encounters Encounter Location Date Provider Diagnosis [facility] [place] [address] [place] [id number] 05/13/2025 Jerrell Bermeo Jr Iron deficiency anemia D50.9 and Hiatal hernia K44.9 [facility] [address] [place] [phone] 03/23/2025 Jerrell Bermeo Jr Iron deficiency anemia D50.9 [facility] [address] [place] [phone] 04/01/2025 Jerrell Bermeo Jr [facility] [address] [place] [phone] 05/17/2025 Jerrell Bermeo Jr Assessments Encounter Date Diagnosis (ICD Code) Assessment Notes Treatment Notes Treatment Clinical Notes Section Notes 05/13/2025 Iron deficiency anemia (ICD-10 - D50.9) 05/13/2025 Hiatal hernia (ICD-10 - K44.9) 03/23/2025 Iron deficiency anemia (ICD-10 - D50.9) [...] Insured Coverage Start Date Coverage End Date [facility] [employer] CLAIMS [address] [place] [address] [id number] KEAGAN LIMON Self - patient is the insured Medical (General) History Medical History History ICD Code high blood pressure Endometrial cancer status post total hys terectomy and XRT Hypertension Asthma Hyperlipidemia Type III paraesophageal hernia Surgical History Surgery Date(Month/Year) Laparoscopic cholecystectomy Total abdominal hysterectomy 11/24/2024
== END 2025-07-14 09:04 | disposition home or self-care (01) ==
LOC: HO.HOS 08:36
PROVIDERS: PCP Internal Medicine; Visit Provider Orthopaedic Surgery
DX: M17.0 Bilateral primary osteoarthritis of knee (principal)
CPT/HCPCS: 20610

== ENCOUNTER → 2025-07-14 08:35 | Outpatient (BNVA) | payer MEDICARE, SELFPAY | PROVIDERS: PCP Internal Medicine; Visit Provider Orthopaedic Surgery | DX: M17.12 Unilateral primary osteoarthritis, left knee (principal); M17.11 Unilateral primary osteoarthritis, right knee | CPT/HCPCS: 20610; J2003; J7323 ==

== ENCOUNTER 2025-07-21 09:39 | Outpatient (AMB) | payer MEDICARE, SELFPAY ==
--- OUTSIDE RECORDS SUMMARY | 2025-04-08 08:40 | XMS_ITS ---
Author Organization [facility] Address [address] [place] [address] Care Team Providers Care Manager Freelance Name Role Phone Nadia Lam Primary Care Provider Unavailab Jerrell Hensley Jr [phone] REASON FOR VISIT fe def anemia Encounters Encounter Location Date Provider Diagnosis [facility] Out[place] [address] [place] [phone] 04/08/2025 Jerrell Post Jr Plan Of Treatment No Information Progress Notes * KEAGAN LIMONDOB:1945 ( 80 yo F)Acc No.[id number]:04/08/2025 EGD and COL/MAC Patient: KEAGAN LAU Provider: Fannie Post MD :1945 A ge:79 Y S ex:Female Date:04/08/2025 Address[address] [id number] Pcp:Nadia Lam Subjective: * Chief Complaints: * [...] 04/08/2025 Generated for Printi ng/Faxing/eTransmitting on: 0 07/21/2025 10:28 AM EDT
--- OUTSIDE RECORDS SUMMARY | 2025-05-13 06:10 | XMS_ITS ---
Author Organization [facility] Address [address] [place] [address] Care Team Providers Care Brake Linings Coater Name Role Phone Nadia Lam Primary Care Provider Unavailab Jerrell Hensley Jr [phone] REASON FOR VISIT anemia Encounters Encounter Location Date Provider Diagnosis [facility] Out[place] [address] [place] [phone] 05/13/2025 Jerrell Post Jr Iron deficiency anemia D50.9 and Hiatal hernia K44.9 Assessments Encounter Date Diagnosis (ICD Code) Assessment Notes Treatment Notes Treatment Clinical Notes Section Notes 05/13/2025 Iron deficiency anemia (ICD-10 - D50.9) 05/13/2025 Hiatal hernia (ICD-10 - K44.9) Plan Of Treatment No Information Progress Notes * KEAGAN LIMONDOB:1945 ( 80 yo F)Acc No.[id number]:05/13/2025 EGD and COL/MAC Patient: KEAGAN LAU Provider: Fannie Post MD :1945 A ge:80 Y S ex:Female Date:05/13/2025 Address:[address], [id number] Pcp:Nadia Lam Subjective: * Chief Complaints: * 1 . Anemia. * Medical History: Objective: * Vitals: Assessment: * Assessment: 1. I apolinar deficiency anemia - D50.9 (Primary) 2 . H iatal hernia - K44.9? Plan: * Treatment: * Procedure Codes: 4 5378 DIAGNOSTIC COLONOSCOPY, Modifiers: 33 , 0529F INTRVL 3+YRS PTS CLNSCP DOCD, [address] UPPER GI ENDOSCOPY, BIOPSY * * The named appointment provid er may or may not be the originator of this progress note, and it is not deemed complete until electronically signed by the appointment provider. Sign off status: Pending * Provider: Fannie Post MD Date: 0 05/13/2025 Generated for Lloyd figueroa/Benson/Ricksmitting on: 0 07/21/2025 10:28 AM EDT
--- NOTE | 2025-07-21 10:06 | MHC.OFFVIS ---
Intake Visit Reasons: Inj- B/L knee Euflexxa #2 Intake Note: Lisbeth is a 80 year old female who presents today for an injection for her bilateral knee, Euflexxa #2. She states that she got mild relief from the 1st set of injections. She continues with her home exercise program. Allergies No Known Allergies Allergy (Verified 07/21/25 10:07) Medication List - Last Reconciled 07/21/25 by Enzo Hunter MD albuterol sulfate 90 mcg/actuation 2 puffs inhalation QID PRN calcium carbonate-vitamin D3 600 mg-20 mcg (800 unit) (Caltrate with Vitamin D3) 1 tab PO DAILY ferrous sulfate 325 mg PO DAILY fexofenadine (Allergy Relief (fexofenadine)) 180 mg PO DAILY hydrochlorothiazide 25 mg PO DAILY lisinopril 20 mg PO DAILY pravastatin 40 mg PO BEDTIME PFSH Medical History Endometrial cancer Paraesophageal hernia Iron deficiency anemia Osteoarthritis Hypertension Anemia Surgical History Hx laparoscopic cholecystectomy Hx of hysterectomy, total Hx of cholecystectomy Social History Alcohol intake: never Patient Tobacco Use Status: Never used Tobacco Current occupational status: retired Current occupation: Right hand dominant Physical Exam Extrem Other: Bilateral knee examination shows minimal effusions, palpable crepitus with range of motion, pain with range of motion, no instability Office Procedures AMB Joint Injection/Aspiration Joint Injection/Aspiration Primary Site: right knee Prep: site was prepped using aseptic technique Injected: 20 mg of (Euflexxa viscosupplementation) and 1% plain lidocaine Procedure: The patient tolerated the procedure well Coding 26893 - Large joint Procedure code (CPT) selection complete AMB Joint Injection/Aspiration Joint Injection/Aspiration Primary Site: left knee Prep: site was prepped using aseptic technique Injected: 20 mg of (Euflexxa viscosupplementation) and 1% plain lidocaine Procedure: The patient tolerated the procedure well Coding 51302 - Large joint Procedure code (CPT) selection complete Assessment & Plan Assessment & Plan (1) Osteoarthritis of left knee: Code(s): M17.12 - Unilateral primary osteoarthritis, left knee Category: Medical (2) Osteoarthritis of right knee: Code(s): M17.11 - Unilateral primary osteoarthritis, right knee Category: Medical Plan Ms. Blackman presents with bilateral knee pains due to osteoarthritis. The risks and benefits of a 2nd set of Euflexxa injections were discussed at length with the patient. The patient wished to proceed. She tolerated the injections well. She will follow up next week as scheduled. Feel free to call me at any time should questions regarding her orthopedic management arise. Orders: Orders AMB Joint Injection/Aspiration Today M17.12 - Unilateral primary osteoarthritis, left knee AMB Joint Injection/Aspiration Today M17.11 - Unilateral primary osteoarthritis, right knee Coding Level of Care Code Procedure Only Diagnoses Osteoarthritis of left knee M17.12 Osteoarthritis of right knee M17.11 CPT Codes Coding - 42442 Large joint: 31776 - Large joint ([id number]) Coding - 65577 Large joint: 30363 - Large joint ([id number])
--- OUTSIDE RECORDS SUMMARY | 2025-07-21 10:28 | XMS_ITS | Patient Health Record ---
Author Organization [facility] Address [address] [place] [address] Care Team Providers Care Customer Service Representative Teacher Name Role Phone Nadia Langston Primary Care Provider Unavailab Jerrell Hensley Jr Unavailable Allergies No Known Allergies Results Component Value Reference Range Notes Pathology Reviewed date:05/17/2025 03:37:56 PM Interpretation: Performing Lab:[facility], [address] [place] [phone] Notes/Report: Reason For Referral Referring Provider First Name Nadia Referring Provider Last Name Genaro Referring Provider Speciality Internal M edicine Referred Organization [facility] Referred Provider Jerrell Bermeo Jr Referred Address [address] [place] [address], [address],[place], [place],[address], Referred Provider Specialty Gastroentero logy General Notes [...] Status Risk Notes Problem Iron deficiency anemia ([id number]) Iron deficiency anemia (D50.9) Active confirmed Vital Signs Temperature 98.5 degrees Fahrenheit 03/23/2025 Blood pressure diastolic 01 mm Hg 03/23/2025 Height 60 in 03/23/2025 Blood pressure systolic 001 mm Hg 03/23/2025 Weight 178.2 lbs 03/23/2025 BMI 34.8 kg/m2 03/23/2025 Encounters Encounter Location Date Provider Diagnosis [facility] [place] Outpatient [address] [place] [id number] 05/13/2025 Jerrell Bermeo Jr Iron deficiency anemia D50.9 and Hiatal hernia K44.9 [facility] [address] [place] [phone] 03/23/2025 Jerrell Bermeo Jr Iron deficiency anemia D50.9 [facility] [address] [place] [phone] 04/01/2025 Jerrell Bermeo Jr [facility] [address] [place] [phone] 05/17/2025 Jerrell Bermeo Jr Assessments Encounter Date [...] Insured Coverage Start Date Coverage End Date [facility] [employer] CLAIMS [address] [place] [address] [id number] KEAGAN LIMON Self - patient is the insured Medical (General) History Medical History History ICD Code high blood pressure Endometrial cancer status post total hys terectomy and XRT Hypertension Asthma Hyperlipidemia Type III paraesophageal hernia Surgical History Surgery Date(Month/Year) Laparoscopic cholecystectomy Total abdominal hysterectomy 11/24/2024
== END 2025-07-21 10:06 | disposition home or self-care (01) ==
LOC: HO.HOS 09:39
PROVIDERS: PCP Internal Medicine; Visit Provider Orthopaedic Surgery
DX: M17.0 Bilateral primary osteoarthritis of knee (principal)
CPT/HCPCS: 20610

== ENCOUNTER → 2025-07-21 09:39 | Outpatient (BNVA) | payer MEDICARE, SELFPAY | PROVIDERS: PCP Internal Medicine; Visit Provider Orthopaedic Surgery | DX: M17.0 Bilateral primary osteoarthritis of knee (principal) | CPT/HCPCS: 20610; J2003; J7323 ==

== ENCOUNTER 2025-07-28 11:27 | Outpatient (AMB) | payer MEDICARE, SELFPAY ==
--- OUTSIDE RECORDS SUMMARY | 2025-04-08 08:40 | XMS_ITS ---
Author Organization [facility] Address [address] [place] [address] Care Team Providers Care Export Clerk Name Role Phone Nadia Lam Primary Care Provider Unavailab Jerrell Hensley Jr REASON FOR VISIT fe def anemia Encounters Encounter Location Date Provider Diagnosis [facility] [place] [address] [place] [phone] 04/08/2025 Jerrell Post Jr Plan Of Treatment No Information Progress Notes * KEAGAN LIMONDOB:1945 ( 80 yo F)Acc No.[id number]:04/08/2025 EGD and COL/MAC Patient: KEAGAN LAU Provider: Fannie Post MD :1945 A ge:79 Y S ex:Female Date:04/08/2025 Address:[address] [id number] Pcp:Nadia Lam Subjective: * Chief Complaints: * [...] 04/08/2025 Generated for Printi ng/Faxing/eTransmitting on: 0 07/28/2025 03:50 PM EDT
--- OUTSIDE RECORDS SUMMARY | 2025-05-13 06:10 | XMS_ITS ---
Author Organization [facility] Address [address] [place] [address] Care Team Providers Care Globe Changer Name Role Phone Nadia Lam Primary Care Provider Unavailab Jerrell Hensley Jr REASON FOR VISIT anemia Encounters Encounter Location Date Provider Diagnosis [facility] [place] [address] [place] [id number] 05/13/2025 Jerrell Post Jr Iron deficiency anemia D50.9 and Hiatal hernia K44.9 Assessments Encounter Date Diagnosis (ICD Code) Assessment Notes Treatment Notes Treatment Clinical Notes Section Notes 05/13/2025 Iron deficiency anemia (ICD-10 - D50.9) 05/13/2025 Hiatal hernia (ICD-10 - K44.9) Plan Of Treatment No Information Progress Notes * KEAGAN LIMONDOB:1945 ( 80 yo F)Acc No.[id number]:05/13/2025 EGD and COL/MAC Patient: KEAGAN LAU Provider: [...] , 0529F INTRVL 3+YRS PTS CLNSCP DOCD, [address] UPPER GI ENDOSCOPY, BIOPSY * * The named appointment provid er may or may not be the originator of this progress note, and it is not deemed complete until electronically signed by the appointment provider. Sign off status: Pending * Provider: Fannie Post MD Date: 0 05/13/2025 Generated for Lloyd figueroa/Benson/Ricksmitting on: 0 07/28/2025 03:49 PM EDT
--- NOTE | 2025-07-28 11:28 | A.OFFVIS_ITS ---
Intake Visit Reasons: Inj-B/L knee Euflexxa #3 Intake Note: Lisbeth is a 80 year old female who presents today for an injection for her bilateral knee, Euflexxa #3. The patient states that she has gotten mild relief from the 1st 2 sets of injections. She continues with her home exercise program. Allergies No Known Allergies Allergy (Verified 07/21/25 10:07) Medication List - Last Reconciled 07/28/25 by Enzo Hunter MD albuterol sulfate 90 mcg/actuation 2 puffs inhalation QID PRN calcium carbonate-vitamin D3 600 mg-20 mcg (800 unit) (Caltrate with Vitamin D3) 1 tab PO DAILY ferrous sulfate 325 mg PO DAILY fexofenadine (Allergy Relief (fexofenadine)) 180 mg PO DAILY hydrochlorothiazide 25 mg PO DAILY lisinopril 20 mg PO DAILY pravastatin 40 mg PO BEDTIME PFSH Medical History Endometrial cancer Paraesophageal hernia Iron deficiency anemia Osteoarthritis Hypertension Anemia Surgical History Hx laparoscopic cholecystectomy Hx of hysterectomy, total Hx of cholecystectomy Social History Alcohol intake: never Patient Tobacco Use Status: Never used Tobacco Current occupational status: retired Current occupation: Right hand dominant Physical Exam Extrem Other: Bilateral knee examination shows minimal effusions, palpable crepitus with range of motion, pain with range of motion, no instability Office Procedures AMB Joint Injection/Aspiration Joint Injection/Aspiration Primary Site: right knee Prep: site was prepped using aseptic technique Injected: 20 mg of (Euflexxa viscosupplementation) and 1% plain lidocaine Coding 72025 - Large joint Procedure code (CPT) selection complete AMB Joint Injection/Aspiration Joint Injection/Aspiration Primary Site: left knee Prep: site was prepped using aseptic technique Injected: 20 mg of (Euflexxa viscosupplementation) and 1% plain lidocaine Procedure: The patient tolerated the procedure well Coding 33364 - Large joint Procedure code (CPT) selection complete Assessment & Plan Assessment & Plan (1) Osteoarthritis of left knee: Code(s): M17.12 - Unilateral primary osteoarthritis, left knee Category: Medical (2) Osteoarthritis of right knee: Code(s): M17.11 - Unilateral primary osteoarthritis, right knee Category: Medical Plan Ms. Blackman presents with bilateral knee pains due to osteoarthritis. The risks and benefits of a 3rd set of Euflexxa viscosupplementation injections were discussed at length with the patient. The patient wished to proceed. She tolerated the injections well. She will continue with her home exercise program. She will contact me prior to her follow-up appointment in 3 months should any questions or concerns arise. Feel free to call me at any time should questions regarding her orthopedic management arise. Orders: Orders AMB Joint Injection/Aspiration Today M17.11 - Unilateral primary osteoarth ritis, right knee AMB Joint Injection/Aspiration Today M17.12 - Unilateral primary osteoarthritis, left knee Coding Level of Care Code Procedure Only Diagnoses Osteoarthritis of left knee M17.12 Osteoarthritis of right knee M17.11 CPT Codes Coding - 77008 Large joint: 66908 - Large joint ([id number]) Coding - 30730 Large joint: 88934 - Large joint ([id number])
--- OUTSIDE RECORDS SUMMARY | 2025-07-28 15:50 | XMS_ITS | Patient Health Record ---
Author Organization [facility] Address [address] [place] [address] Care Team Providers Care County Assessor Name Role Phone Nadia Langston Primary Care Provider Unavailab Jerrell Hensley Jr Unavailable [phone] Allergies No Known Allergies Results Component Value Reference Range Notes Pathology Reviewed date:05/17/2025 03:37:56 PM Interpretation: Performing Lab:[facility], [address] [place] [phone] Notes/Report: Reason For Referral Referring Provider First Name Nadia Referring Provider Last Name Genaro Referring Provider Speciality Internal M edicine Referred Organization [facility] Referred Provider Jerrell Bermeo Jr Referred Address [address] [place] [address], [address],[place], [place],[address], Referred Provider Specialty Gastroentero logy General Notes [...] Status Risk Notes Problem Iron deficiency anemia ([id number]) Iron deficiency anemia (D50.9) Active confirmed Vital Signs Temperature 98.5 degrees Fahrenheit 03/23/2025 Blood pressure diastolic 01 mm Hg 03/23/2025 Height 60 in 03/23/2025 Blood pressure systolic 001 mm Hg 03/23/2025 Weight 178.2 lbs 03/23/2025 BMI 34.8 kg/m2 03/23/2025 Encounters Encounter Location Date Provider Diagnosis [facility] Outpatient [address] [place] [id number] 05/13/2025 Jerrell Bermeo Jr Iron deficiency anemia D50.9 and Hiatal hernia K44.9 [facility] [address] [place] [phone] 03/23/2025 Jerrell Bermeo Jr Iron deficiency anemia D50.9 [facility] [address] [place] [phone] 04/01/2025 Jerrell Bermeo Jr [facility] [address] [place] [phone] 05/17/2025 Jerrell Bermeo Jr Assessments Encounter Date [...] Insured Coverage Start Date Coverage End Date [facility] [employer] [address] [place] [address] [id number] KEAGAN LIMON Self - patient is the insured Medical (General) History Medical History History ICD Code high blood pressure Endometrial cancer status post total hys terectomy and XRT Hypertension Asthma Hyperlipidemia Type III paraesophageal hernia Surgical History Surgery Date(Month/Year) Laparoscopic cholecystectomy Total abdominal hysterectomy 11/24/2024
== END 2025-07-28 11:46 | disposition home or self-care (01) ==
LOC: HO.HOS 11:28
PROVIDERS: PCP Internal Medicine; Visit Provider Orthopaedic Surgery
DX: M17.0 Bilateral primary osteoarthritis of knee (principal)
CPT/HCPCS: 20610

== ENCOUNTER → 2025-07-28 11:27 | Outpatient (BNVA) | payer MEDICARE, SELFPAY | PROVIDERS: PCP Internal Medicine; Visit Provider Orthopaedic Surgery | DX: M17.11 Unilateral primary osteoarthritis, right knee (principal); M17.12 Unilateral primary osteoarthritis, left knee | CPT/HCPCS: 20610; J2003; J7323 ==

== ENCOUNTER 2025-08-22 09:56 | Outpatient (REF) | payer MEDICARE, SELFPAY ==
--- OUTSIDE RECORDS SUMMARY | 2025-04-08 08:40 | XMS_ITS ---
Author Organization [facility] Address [address] [place] [address] Care Team Providers Care Plant Health Manager Name Role Phone Nadia Lam Primary Care Provider Unavailab Jerrell Hensley Jr REASON FOR VISIT fe def anemia Encounters Encounter Location Date Provider Diagnosis [facility] Outpatient [address] [place] [phone] 04/08/2025 Jerrell Post Jr Plan Of Treatment No Information Progress Notes * KEAGAN LIMONDOB:1945 ( 80 yo F)Acc No.[id number]:04/08/2025 EGD and COL/MAC Patient: KEAGAN LAU Provider: Fannie Post MD :1945 A ge:79 Y S ex:Female Date:04/08/2025 Address[address] [id number] Pcp:Nadia Lam Subjective: * Chief Complaints: * 1 . Fe def anemia. * Medical History: Objective: * Vitals: Assessment: Plan: * Treatment: * * The named appointment provid er may or may not be the originator of this progress note, and it is not deemed complete until electronically signed by the appointment provider. Sign off status: Pending * Provider: Fannie Post MD Date: 0 04/08/2025 Generated for Printi ng/Faxing/eTransmitting on: 1 11:23 AM EDT
--- OUTSIDE RECORDS SUMMARY | 2025-05-13 06:10 | XMS_ITS ---
Author Organization [facility] Address [address] [place] [address] Care Team Providers Care Embryology Professor Name Role Phone Nadia Lam Primary Care Provider Unavailab Jerrell Hensley Jr REASON FOR VISIT anemia Encounters Encounter Location Date Provider Diagnosis [facility] [place] [address] [place] [phone] 05/13/2025 Jerrell Post Jr Iron deficiency anemia D50.9 and Hiatal hernia K44.9 Assessments Encounter Date Diagnosis (ICD Code) Assessment Notes Treatment Notes Treatment Clinical Notes Section Notes 05/13/2025 Iron deficiency anemia (ICD-10 - D50.9) 05/13/2025 Hiatal hernia (ICD-10 - K44.9) Plan Of Treatment No Information Progress Notes * KEAGAN LIMONDOB:1945 ( 80 yo F)Acc No.[id number]:05/13/2025 EGD and COL/MAC Patient: KEAGAN LAU Provider: Fannie Post MD :1945 A ge:80 Y S ex:Female Date:05/13/2025 Address:[address], [id number] Pcp:Nadia Lam Subjective: * Chief Complaints: * 1 . Anemia. * Medical History: Objective: * Vitals: Assessment: * Assessment: 1. I apolinar deficiency anemia - D50.9 (Primary) 2 . H iatal hernia - K44.9? Plan: * Treatment: * Procedure Codes: 4 5378 DIAGNOSTIC COLONOSCOPY, Modifiers: 33 , 0529F INTRVL 3+YRS PTS CLNSCP DOCD, [address] UPPER GI ENDOSCOPY, BIOPSY * * The named appointment provid er may or may not be the originator of this progress note, and it is not deemed complete until electronically signed by the appointment provider. Sign off status: Pending * Provider: Fannie Post MD Date: 0 05/13/2025 Generated for Lloyd figueroa/Benson/Ricksmitting on: 1 11:23 AM EDT
[2025-08-22 10:07] LABS: MANUAL DIFF FLAG NO
[2025-08-22 11:09] LABS: Hematocrit 29.8 % (37.0-47.0); Hemoglobin 9.7 g/dl (12.0-16.0); Imm Gran Abs Auto 0.02 X10*3/uL (0.00-0.03); Imm Gran Pct Auto 0.3 % (0.0-0.4); Lymphocytes Absolute Auto 1.7 X10*3/uL (1.2-4.9); Mean Corpuscular HGB Conc 32.6 g/dl (31.0-35.0); Mean Corpuscular Hemoglobin 30.2 pg (27.0-33.0); Mean Corpuscular Volume 92.8 fL (80.0-98.0); NRBC Abs Auto 0.000 X10*3/uL (0.0-0.012); NRBC Pct Auto 0.0 /100WBC (0.0-0.2); Platelet Count 230 X10*3/uL (160-400); Red Blood Count 3.21 X10*6/uL (4.20-5.50); White Blood Count 6.9 X10*3/uL (4.8-10.8)
--- OUTSIDE RECORDS SUMMARY | 2025-08-22 11:24 | XMS_ITS | Patient Health Record ---
Author Organization [facility] Address [address] [place] [address] Care Team Providers Care Doctor Chiropractic Name Role Phone Nadia Langston Primary Care Provider Unavailab Jerrell Hensley Jr Unavailable Allergies No Known Allergies Results Component Value Reference Range Notes Pathology Reviewed date:05/17/2025 03:37:56 PM Interpretation: Performing Lab:[facility], [address] [place] [phone] Notes/Report: Reason For Referral Referring Provider First Name Nadia Referring Provider Last Name Genaro Referring Provider Speciality Internal M edicine Referred Organization [facility] Referred Provider Jerrell Bermeo Jr Referred Address [address] [place] [address], [address],[place], [place],[address], Referred Provider Specialty Gastroentero logy General Notes [...] Status Risk Notes Problem Iron deficiency anemia ([id number]) Iron deficiency anemia (D50.9) Active confirmed Vital Signs Temperature 98.5 degrees Fahrenheit 03/23/2025 Blood pressure diastolic 01 mm Hg 03/23/2025 Height 60 in 03/23/2025 Blood pressure systolic 001 mm Hg 03/23/2025 Weight 178.2 lbs 03/23/2025 BMI 34.8 kg/m2 03/23/2025 Encounters Encounter Location Date Provider Diagnosis [facility] Outpatient [address] [place] [id number] 05/13/2025 Jerrell Bermeo Jr Iron deficiency anemia D50.9 and Hiatal hernia K44.9 [facility] [address] [place] [phone] 03/23/2025 Jerrell Bermeo Jr Iron deficiency anemia D50.9 [facility] [address] [place] [phone] 04/01/2025 Jerrell Bermeo Jr [facility] [address] [place] [phone] 05/17/2025 Jerrell Bermeo Jr Assessments Encounter Date [...] Insured Coverage Start Date Coverage End Date [facility] [employer] [address] [place] [address] [id number] KEAGAN LIMON Self - patient is the insured Medical (General) History Medical History History ICD Code high blood pressure Endometrial cancer status post total hys terectomy and XRT Hypertension Asthma Hyperlipidemia Type III paraesophageal hernia Surgical History Surgery Date(Month/Year) Laparoscopic cholecystectomy Total abdominal hysterectomy 11/24/2024
[2025-08-22 12:00] LABS: Alanine Aminotransferase 16 U/L (0-31); Albumin Level 3.9 g/dL (3.5-5.0); Alkaline Phosphatase 96 U/L (39-117); Anion Gap 10 (12-20); Aspartate Amino Transferase 27 U/L (5-31); Blood Urea Nitrogen 27 mg/dL (9-16); Calcium 8.9 mg/dL (8.4-10.2); Carbon Dioxide 27 mmol/L (22-29); Chloride 110 mmol/L (96-108); Estimated Glomerular Filt Rate 53; Potassium 3.9 mmol/L (3.3-5.1); Sodium 143 mmol/L (135-145); Total Protein 6.4 g/dL (6.5-8.0)
[2025-08-22 12:12] LABS: Vitamin B12 561 pg/mL (200-900)
[2025-08-22 12:18] LABS: Ferritin 26 ng/mL (10-250)
== END 2025-08-22 09:57 | disposition home or self-care (01) ==
LOC: HO.LAB 09:56
PROVIDERS: PCP Internal Medicine; Visit Provider Internal Medicine
DX: D50.8 Other iron deficiency anemias (principal); E78.00 Pure hypercholesterolemia, unspecified; I10 Essential (primary) hypertension; Z68.37 Body mass index [BMI] 37.0-37.9, adult
CPT/HCPCS: 36415; 80053; 82607; 82728; 85025